=== PATIENT | male | born 1935 | race Caucasian/White ===

== ENCOUNTER 2016-11-30 09:38 | Inpatient (IN) | payer OTHER, BC ==
--- NOTE | 2016-11-30 10:02 | PDOC ---
History of Present Illness - General Chief Complaint: Lightheaded Stated Complaint: DIZZINESS & DIARRHEA Time Seen by Provider: 11/30/16 09:44 History Source: Patient Exam Limitations: No Limitations - History of Present Illness Initial Comments: 11/30/16 10:04 The patient is an 81-year-old male with a significant past medical history of hypertension and benign prostatic hyperplasia, who presents to the emergency department complaining of "dizziness." He was seen in the emergency department for the same complaint several days ago. He reported to the emergency physician that his symptoms only occurred when standing, and were transient. His emergency department workup included a significant drop in systolic blood pressure when changing position from lying to standing. He had a normal CBC, normal chemistries, normal troponin. He was given IV fluids, and discharged with a diagnosis of orthostatic hypotension. Of note, he reported to the emergency provider that he had had similar symptoms several times in the past. He saw his PCP earlier this week and his Valsartan/HCTZ dose was reduced from 160mg daily to 80mg daily. He denies chest pain, back pain, neck pain, jaw pain, teeth pain. He denies nausea, vomiting, diaphoresis. He denies dyspnea. He denies palpitations. He denies focal weakness or paresthesias. He denies difficulty speaking swallowing , vision changes. He has fallen 4 times in the past day and lives alone. 11/30/16 10:22 11/30/16 10:49 Past History - Past Medical History Allergies/Adverse Reactions: Allergies Allergy/AdvReac Type Severity Reaction Status Date / Time No Known Allergies Allergy Verified 11/30/16 11:03 Home Medications: Ambulatory Orders Cholecalciferol (Vitamin D3) [Vitamin D3] 2,000 unit PO DAILY capsule 06/28/13 Valsartan/Hydrochlorothiazide [Valsartan-Hctz 80-12.5 Mg Tab] 1 each PO DAILY tablet 11/18/16 Aspirin [Aspirin EC] 325 mg PO HS 11/30/16 Propranolol HCl [Propranolol HCl ER] 160 mg PO HS 11/30/16 Tamsulosin HCl [Flomax] 0.8 mg PO HS 11/30/16 HTN: Yes - Surgical History Abdominal Surgery: Yes (HERNIA) Appendectomy: Yes - Immunization History Td Vaccination: Yes - Psycho/Social/Smoking Cessation Hx Suicidal Ideation: No Smoking History: Never smoked Have you smoked in the past 12 months: No Number of Cigarettes Smoked Daily: 0 Hx Alcohol Use: No Drug/Substance Use Hx: No Substance Use Type: None Review of Systems - Review of Systems Comments:: 11/30/16 10:02 CONSTITUTIONAL: Absent: fever, chills, diaphoresis, generalized weakness, malaise, loss of appetite HEENT: Absent: rhinorrhea, nasal congestion, throat pain, throat swelling, difficulty swallowing, mouth swelling, ear pain, eye pain, visual Changes CARDIOVASCULAR: Present: See history of present illness Absent: chest pain, loss of consciousness, palpitations, irregular heart rate, peripheral edema RESPIRATORY: Absent: cough, shortness of breath, dyspnea with exertion, orthopnea, wheezing, stridor, hemoptysis GASTROINTESTINAL: Absent: abdominal pain, abdominal distension, nausea, vomiting, diarrhea, constipation, melena, hematochezia GENITOURINARY: Absent: dysuria, frequency, urgency, hesitancy, hematuria, flank pain, genital pain MUSCULOSKELETAL: Absent: myalgia, arthralgia, joint swelling SKIN: Absent: rash, itching, pallor HEMATOLOGIC/IMMUNOLOGIC: Absent: easy bleeding, easy bruising, lymphadenopathy, frequent infections ENDOCRINE: Absent: unexplained weight gain, unexplained weight loss, heat intolerance, cold intolerance NEUROLOGIC: Absent: headache, focal weakness or paresthesias, unsteady gait, seizure, mental status changes, bladder or bowel incontinence PSYCHIATRIC: Absent: anxiety, depression, suicidal or homicidal ideation, hallucinations. *Physical Exam - Vital Signs Last Vital Signs Temp Pulse Resp BP Pulse Ox 98.5 F 80 16 123/85 98 11/30/16 09:40 11/30/16 09:40 11/30/16 09:40 11/30/16 09:40 11/30/16 09:40 - Physical Exam Comments: 11/30/16 10:02 GENERAL: Well developed, well nourished. Awake and alert. No acute distress. HEENT: Normocephalic, atraumatic. PERRLA, EOMI. No conjunctival pallor. Sclera are non- icteric. Moist mucous membranes. Oropharynx is clear. NECK: Supple. Full ROM. No JVD. Carotid pulses 2+ and symmetric, without bruits. No thyromegaly. No lymphadenopathy. CARDIOVASCULAR: Regular rate and rhythm. No murmurs, rubs, or gallops. Distal pulses are 2+ and symmetric. PULMONARY: No evidence of respiratory distress. Lungs clear to auscultation bilaterally. No wheezing, rales or rhonchi. ABDOMINAL: Soft. Non-tender. Non-distended. No rebound or guarding. No organomegaly. Normoactive bowel sounds. MUSCULOSKELETAL Normal range of motion at all joints. No bony deformities or tenderness. No CVA tenderness. EXTREMITIES: No cyanosis. No clubbing. No edema. No calf tenderness. SKIN: Warm and dry. Normal capillary refill. No rashes. No jaundice. NEURO: Alert, awake, appropriate. Cranial nerves 2-12 intact. No deficits to light touch and temperature in face, upper extremities and lower extremities. No motor deficits in the in face, upper extremities and lower extremities. No pronator drift. Normoreflexic in the upper and lower extremities. Normal speech. Toes are down-going bilaterally. Gait is normal without ataxia. No dysmetria. No dysdiadochokinesis. No skew deviation. No abnormal nystagmus. Rhomberg is +/-. Head thrust test is +/-. Dixs-Hallpike test is +/-. PSYCHIATRIC: Cooperative. Good eye contact. Appropriate mood and affect. ED Treatment Course - LABORATORY CBC & Chemistry Diagram: 11/30/16 10:20 11/30/16 10:20 Medical Decision Making - Medical Decision Making 11/30/16 10:30 The patient is well-appearing and in no acute distress He appears euvolemic When he stood up, his blood pressure dropped to 49 systolic, and he became extremely symptomatic When we laid him down, 2 minutes later his blood pressure was 80 systolic Will obtain labs, EKG, chest x-ray Will administer IV fluids Calling PCP 11/30/16 10:[address] De La Vega who agrees with admission 11/30/16 10:47 EKG noted: Atrial flutter with a variable block and a ventricular rate of approximately 84, left axis deviation, left anterior hemiblock, right bundle- branch block, no ST changes 11/30/16 11:15 Labs noted Laboratory Tests 04/19/16 11/16/16 11/30/16 11:30 11:31 10:20 Sodium 137 134 L Potassium 3.5 3.3 L Creatinine 1.2 1.4 H 2.0 H D Will defer decision to anticoagulate to inpatient team as he is a clear fall risk at the moment, but may change if his orthostatic hypotension can be resolved Will place on observation Case discussed in detail with admitting provider including history, physical exam and ancillary studies. Admitting physician has assumed care for the patient, will follow all pending diagnostics and will complete the evaluation and treatment. 11/30/16 11:30 Elevated troponin noted consistent with NSTEMI He denies all chest pain and gutierres snot appear to have had any anginal equivalents Will transfer to [facility] ICU Will administer ASA Will not anticoagulate at this point Clinical impression: NSTEMI New onset atrial flutter Orthostatic hypotension Acute kidney injury Hyponatremia Hypokalemia Frequent falls 11/30/16 11:37 *DC/Admit/Observation/Transfer Diagnosis at time of Disposition: Atrial fibrillation, Orthostatic hypotension, NSTEMI (non-ST elevated myocardial infarction) - Discharge Dispostion Condition at time of disposition: Good Admit: Yes - Referrals Referrals: Yariel Lew MD [Primary Care Provider] -
[2016-11-30 10:44] LABS: BASOPHIL 0.4 % (0-2.0); EOSINOPHIL 0.6 % (0-4.5); MCH 29.4 pg (25.7-33.7); MCHC 32.8 g/dl (32.0-35.9); MEAN CELL VOLUME 89.8 fl (80-96); MEAN PLT VOLUME 9.1 fl (7.5-11.1); NEUTROPHILS 56.8 % (42.8-82.8); PLATELET COUNT 149 K/MM3 (134-434); WHITE BLOOD COUNT 4.9 K/mm3 (4.0-10.0)
[2016-11-30] MEDS ORDERED: SODIUM CHLORIDE 1,000 ML IV SCH (10:45)
[2016-11-30 11:02] LABS: ALBUMIN 3.7 g/dl (3.5-5.0); BILIRUBIN,TOTAL 0.7 mg/dl (0.2-1.0); CALCIUM 8.9 mg/dl (8.4-10.2); TOT PROT 6.7 g/dl (6.4-8.3)
[2016-11-30] MEDS ORDERED: POTASSIUM CHLORIDE TABS 20 MEQ TABLET.ER (FP) PO ONE ×2 (11:15→11:19)
[2016-11-30 11:23] LABS: TROPONIN I (DFP) 0.94 ng/ml (0.03-0.50)
[2016-11-30 11:26] LABS: CK MB 5.8 ng/ml (0.3-4.0)
--- NOTE | 2016-11-30 11:28 | HP ---
CHIEF COMPLAINT: Dizziness PCP: Dr. Lew HISTORY OF PRESENT ILLNESS: This is a 71 year old male with history of HTN, BPH , ?TIA (pt states seen in ED a few years ago and thinks he may have had a "mini- stroke" at that time) who presented to the [facility] ED today complaining of dizziness, a fall yesterday (friend at bedside reports no head trauma or LOC), and a fall earlier this week. He notes that he has been increasingly dizzy over the last few months and that this is causing his frequent falls. He describes the dizziness as the "room spinning" rather than lightheadedness. He was seen with similar symptoms on 11/16 and noted to be orthostatic at that time; Valsartan/HCTZ dose was decreased by half, but he reports no improvement of symptoms. He also notes that he is recovering from "flu" (cough/cold symptoms). V/s on my evaluation: HR 82, BP 90/54, RR 20, SpO2 98% on RA. ER course was notable for: (1) Atrial fibrillation/flutter with ventricular rate 84, left axis deviation, RBBB previously noted on prior EKG of 11/16 (2) Positive troponin 0.94 (3) AMI - 2.0 today; 1.4 on 11/16; 1.0-1.2 in 2016 (4) Hypotension - SBP in 70s on multiple measurements, 40s with standing (5) Temperature 100.6 orally Recent Travel: No PAST MEDICAL HISTORY: As above PAST SURGICAL HISTORY: Appendectomy, hernia repair, retinal detachment repair, cataracts Social History: Lives alone, independent with ADLs. 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 Smoking: Quit 40 years ago Alcohol: None Family History: No family history of CAD, CHF, or atrial fibrillation Allergies No Known Allergies Allergy (Verified 11/30/16 11:03) HOME MEDICATIONS: Home Medications Medication Instructions Recorded Cholecalciferol (Vitamin D3) 2,000 unit PO DAILY capsule 06/28/13 [Vitamin D3] Valsartan/Hydrochlorothiazide 1 each PO DAILY tablet 11/18/16 [Valsartan-Hctz 80-12.5 Mg Tab] Aspirin [Aspirin EC] 325 mg PO HS 11/30/16 Propranolol HCl [Propranolol HCl 160 mg PO HS 11/30/16 ER] Tamsulosin HCl [Flomax] 0.8 mg PO HS 11/30/16 REVIEW OF SYSTEMS CONSTITUTIONAL: Absent: fever, chills, diaphoresis, generalized weakness, malaise, loss of appetite, weight change HEENT: rhinorrhea, nasal congestion Absent: throat pain, throat swelling, difficulty swallowing, mouth swelling, ear pain, eye pain, visual changes CARDIOVASCULAR: lightheadedness, frequent falls because of dizziness Absent: chest pain, syncope, palpitations, irregular heart rate, peripheral edema RESPIRATORY: cough, BELL (70 foot exercise tolerance for the past year) Absent: shortness of breath, dyspnea with exertion, orthopnea, wheezing, stridor , hemoptysis GASTROINTESTINAL: Absent: abdominal pain, abdominal distension, nausea, vomiting, diarrhea, constipation, melena, hematochezia GENITOURINARY: Absent: dysuria, frequency, urgency, hesitancy, hematuria, flank pain, genital pain MUSCULOSKELETAL: Absent: myalgia, arthralgia, joint swelling, back pain, neck pain SKIN: Absent: rash, itching, pallor HEMATOLOGIC/IMMUNOLOGIC: Absent: easy bleeding, easy bruising, lymphadenopathy, frequent infections ENDOCRINE: Absent: unexplained weight gain, unexplained weight loss, heat intolerance, cold intolerance NEUROLOGIC: Absent: headache, focal weakness or paresthesias, dizziness, unsteady gait, seizure, mental status changes, bladder or bowel incontinence PSYCHIATRIC: Absent: anxiety, depression, suicidal or homicidal ideation, hallucinations. PHYSICAL EXAMINATION Vital Signs - 24 hr 11/30/16 11/30/16 11/30/16 09:40 09:56 10:15 Temperature 98.5 F 98.5 F Pulse Rate 80 80 Pulse Rate [ Apical] Pulse Rate [ 86 Sitting] Pulse Rate [ 83 Standing] Pulse Rate [ 82 Supine] Respiratory 16 16 Rate Blood Pressure 123/85 123/85 Blood Pressure [Right Arm] Blood Pressure 74/56 [Sitting] Blood Pressure 49/41 [Standing] Blood Pressure 79/59 [Supine] O2 Sat by Pulse 98 98 Oximetry (%) 11/30/16 11/30/16 11/30/16 10:16 10:40 10:48 Temperature Pulse Rate Pulse Rate [ 87 94 H Apical] Pulse Rate [ Sitting] Pulse Rate [ Standing] Pulse Rate [ Supine] Respiratory 21 18 Rate Blood Pressure 98/63 Blood Pressure 76/45 98/63 [Right Arm] Blood Pressure [Sitting] Blood Pressure [Standing] Blood Pressure [Supine] O2 Sat by Pulse 97 97 Oximetry (%) 11/30/16 11:15 Temperature Pulse Rate Pulse Rate [ 78 Apical] Pulse Rate [ Sitting] Pulse Rate [ Standing] Pulse Rate [ Supine] Respiratory 22 Rate Blood Pressure Blood Pressure 74/50 [Right Arm] Blood Pressure [Sitting] Blood Pressure [Standing] Blood Pressure [Supine] O2 Sat by Pulse 96 Oximetry (%) GENERAL: Awake, alert, and fully oriented, in no acute distress. HEAD: Normal with no signs of trauma. EYES: Pupils equal, round and reactive to light, extraocular movements intact, sclera anicteric, conjunctiva clear. No lid lag. EARS, NOSE, THROAT: Ears normal, nares patent, oropharynx clear without exudates. Moist mucous membranes. NECK: Normal range of motion, supple without lymphadenopathy, JVD, or masses. LUNGS: Breath sounds equal, clear to auscultation bilaterally. No wheezes, and no crackles. No accessory muscle use. HEART: Irregular rhythm, normal S1 and S2 without murmur, rub or gallop. ABDOMEN: Soft, nontender, not distended, normoactive bowel sounds, no guarding, no rebound, no masses. No hepatomegaly or splenomegaly. MUSCULOSKELETAL: Normal range of motion at all joints. No bony deformities or tenderness. No CVA tenderness. UPPER EXTREMITIES: 2+ pulses, warm, well-perfused. No cyanosis. No clubbing. No peripheral edema. LOWER EXTREMITIES: 2+ pulses, warm, well-perfused. No calf tenderness. No peripheral edema. NEUROLOGICAL: Cranial nerves II-XII intact. Normal speech. Normal gait. PSYCHIATRIC: Cooperative. Good eye contact. Appropriate mood and affect. SKIN: Warm, dry, normal turgor, no rashes or lesions noted, normal capillary refill. Laboratory Results - last 24 hr 11/30/16 11/30/16 11/30/16 10:20 10:20 10:20 WBC 4.9 RBC 4.64 Hgb 13.7 Hct 41.7 MCV 89.8 MCHC 32.8 RDW 13.0 Plt Count 149 MPV 9.1 Neutrophils % 56.8 Lymphocytes % 24.2 Monocytes % 18.0 H D Eosinophils % 0.6 Basophils % 0.4 Sodium 134 L Potassium 3.3 L Chloride 100 Carbon Dioxide 24 Anion Gap 10 BUN 52 H D Creatinine 2.0 H D Creat Clearance w eGFR 32.07 Random Glucose 105 Calcium 8.9 Total Bilirubin 0.7 D AST 45 H D ALT 23 D Alkaline Phosphatase 50 Creatine Kinase 439 H D CK-MB (CK-2) 5.8 H CK-MB (CK-2) Rel Index 1.3 Troponin I 0.94 H* D Total Protein 6.7 Albumin 3.7 11/30/16 10:20 WBC RBC Hgb Hct MCV MCHC RDW Plt Count MPV Neutrophils % Lymphocytes % Monocytes % Eosinophils % Basophils % Sodium Potassium Chloride Carbon Dioxide Anion Gap BUN Creatinine Creat Clearance w eGFR Random Glucose Calcium Total Bilirubin AST ALT Alkaline Phosphatase Creatine Kinase CK-MB (CK-2) Cancelled CK-MB (CK-2) Rel Index Troponin I Total Protein Albumin ASSESSMENT/PLAN: 81 yo M with c/o dizziness and subsequent falls x 2. Admitted with new-onset atrial fibrillation and hypotension. Plan: 1. New onset atrial fibrillation/flutter - May have had long-standing paroxysmal atrial fib given report of possible TIA - With fever and recent URI symptoms, need to consider sepsis as possible inciting event - [id number] score 2, even without possible TIA - Need to consider A/C, however pt may not be candidate secondary to frequent falls - Continuous cardiac monitoring - Serial troponins to DION - Check TSH - Obtain echocardiogram - Discussed with Dr. Alfaro 2. Positive troponin - No chest pain or SOB - Cycle cardiac enzymes as above 3. AMI - BUN/Cr ratio suggestive of prerenal process - Continue IV hydration - Avoid nephrotoxic meds as able - Follow 4. Hypotension - Hold antihypertensives - Hold Flomax - IV hydration as above - Monitor in ICU setting 5. Fever - Obtain rectal temp - Follow up CXR - Obtain BC x 2 and lactic acid - Send flu swab - Tylenol 650mgmg PO PRN 6. BPH - Resume Flomax when normotensive 7. Hypokalemia - Repleted with 40 mEq in ED - Follow 8. F/E/N - NS 125/hr - Replete K+ - Low cholesterol/cardiac diet 9. PPX - Heparin 5,000 units sq bid - Ambulation with assistance Dispo: Admit to ICU FULL CODE Visit type - Emergency Visit Emergency Visit: Yes ED Registration Date: 11/30/16 Care time: The patient presented to the Emergency Department on the above date and was hospitalized for further evaluation of their emergent condition. - New Patient This patient is new to me today: Yes Date on this admission: 12/01/16 - Critical Care Critical Care patient: Yes Total Critical Care Time (in minutes): 35 Critical Care Statement: The care of this patient involved high complexity decision making to prevent further life threatening deterioration of the patient 's condition and/or to evalute & treat vital organ system(s) failure or risk of failure.
[2016-11-30] MEDS ORDERED: ASPIRIN 325 MG TABLET PO ONE (11:31)
[2016-11-30] MEDS ORDERED: ASPIRIN 325 MG TABLET ONE (11:33)
[2016-11-30 12:02] LABS: ACTIVATED PTT 22.4 SECONDS (24.0-38.9)
[2016-11-30] MEDS ORDERED: ONDANSETRON 4 MG/2 ML VIAL IVPB PRN (12:02)
[2016-11-30] MEDS ORDERED: ACETAMINOPHEN 325 MG TABLET (FP) PO PRN (12:02)
[2016-11-30 12:06] LABS: INR 1.01 (0.82-1.09); PROTHROMBIN TIME (PATIENT) 11.3 SEC (10.2-13.0)
[2016-11-30 13:00] LABS: URINE BILIRUBIN 1+ (NEGATIVE); URINE BLOOD Trace-lysed (NEGATIVE); URINE GLUCOSE (UA) Negative (NEGATIVE); URINE KETONE Trace (NEGATIVE); URINE LEUK ESTERASE Negative (NEGATIVE); URINE NITRITE Negative (NEGATIVE); URINE UROBILINOGEN 1.0 E.U/dl (0.2-1.0)
[2016-11-30 13:01] LABS: URINE APPEARANCE SL CLOUDY; URINE COLOR AMBER; URINE PROTEIN 1+ (NEGATIVE)
[2016-11-30 13:17] LABS: URINE MUCUS MODERATE; URINE RBC 0-1 /hpf (0-3)
--- NOTE | 2016-11-30 14:34 | CONSULT ---
Consult Consult Specialty:: PULM/CCM Reason for Consultation:: atrial flutter, hypotension, NSTEMI - History of Present Illness Chief Complaint: dizziness History of Present Illness: Mr Mccoy is a 81-year-old male with a significant past medical history of hypertension and benign prostatic hyperplasia, who presents to the emergency department complaining of "dizziness." He was seen in the emergency department for the same complaint several days ago and was discharged home after receiving fluid. Dx was orthostatic hypotension, no amita agonist was prescribed however, but antihypertensive were reduced by PMD. He now returns to the ED reporting that his symptoms have reoccurred despite above measures and are now more frequent. He denies chest pain, back pain, neck pain, jaw pain, teeth pain. He denies N/V/D. He denies dyspnea, orthopnea. . He denies palpitations or full LOC /syncope. He denies focal weakness or paresthesias. He denies difficulty speaking swallowing, vision changes. No fever, sick contacts, or recent travle. He has fallen 4 times in the past day but without striking head or syncope Lives alone, independent of adls. In ED pt was hypotensive to 70s upon sitting up, fluid was given. HR was at baseline. Labs notable for Trop 0.9, Cr up from 2 (last 1.4). Had low grade temp 100. Transferred to [facility] ICU for monitoring. 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 Home Medications - Allergies Allergies/Adverse Reactions: Allergies Allergy/AdvReac Type Severity Reaction Status Date / Time No Known Allergies Allergy Verified 11/30/16 11:03 - Home Medications Home Medications: Ambulatory Orders Cholecalciferol (Vitamin D3) [Vitamin D3] 2,000 unit PO DAILY capsule 06/28/13 Valsartan/Hydrochlorothiazide [Valsartan-Hctz 80-12.5 Mg Tab] 1 each PO DAILY tablet 11/18/16 Aspirin [Aspirin EC] 325 mg PO HS 11/30/16 Propranolol HCl [Propranolol HCl ER] 160 mg PO HS 11/30/16 Tamsulosin HCl [Flomax] 0.8 mg PO HS 11/30/16 Family Disease History - Family Disease History Family History: Unremarkable (Non contrib) Review of Systems - Review of Systems Constitutional: reports: No Symptoms Eyes: reports: No Symptoms HENT: reports: No Symptoms Neck: reports: No Symptoms Cardiovascular: reports: No Symptoms Respiratory: reports: No Symptoms Gastrointestinal: reports: No Symptoms Genitourinary: reports: No Symptoms Breasts: reports: No Symptoms Reported Musculoskeletal: reports: No Symptoms Integumentary: reports: No Symptoms Neurological: reports: Dizziness Endocrine: reports: No Symptoms Hematology/Lymphatic: reports: No Symptoms, Other Psychiatric: reports: No Symptoms Physical Exam Vital Signs: Vital Signs Temperature 100.6 F H 11/30/16 12:56 Pulse Rate 85 11/30/16 12:56 Respiratory Rate 21 11/30/16 12:56 Blood Pressure 82/57 11/30/16 12:56 O2 Sat by Pulse Oximetry (%) 95 11/30/16 11:38 Constitutional: Yes: Well Nourished, No Distress, Calm Eyes: Yes: Conjunctiva Clear, PERRL HENT: Yes: Atraumatic, Normocephalic Neck: Yes: Supple, Trachea Midline. No: Thyromegaly Cardiovascular: Yes: Pulse Irregular, S1, S2 Respiratory: Yes: CTA Bilaterally. No: Accessory Muscle Use Gastrointestinal: Yes: Normal Bowel Sounds, Soft Imaging - Results Chest X-ray: Image Reviewed (clear, normal heart silhoette, no pneumo) EKG: Image Reviewed ( Atrial fibrillation/flutter with ventricular rate 84, LAD , RBBB unchanged from EKG of 11/16) Problem List - Problems (1) Atrial fibrillation Code(s): I48.91 - UNSPECIFIED ATRIAL FIBRILLATION (2) NSTEMI (non-ST elevated myocardial infarction) Code(s): I21.4 - NON-ST ELEVATION (NSTEMI) MYOCARDIAL INFARCTION (3) Orthostatic hypotension Code(s): I95.1 - ORTHOSTATIC HYPOTENSION Assessment/Plan A/ P: 81 yo man on multiple antihyptensives and amita paolo for BPH p/w a flutter and orthostatic hypotesion P/ -? if flutter is paroxysmal , rate is controlled without intervention - would not anticoagulate given hx of multiple falls (high risk) - given AMI, clear cxr and no oxygen requirement would give volume and follow Cr - serial troponin, suspect demand during hypotension, EKG unchanged, check TTE and t-BNP - Dr Alfaro following - hold all anti-HTN, resume slowly if at all - Resume Flomax when normotensive - Heparin 5,000 units SUBQ BID, no indication for GI prophy - OOB with assitance Dispo: can monitor in ICU tonight, tele tomorrow FULL CODE
[2016-11-30 15:06] VITALS: BMI 27.1
[2016-11-30 16:50] LABS: TROPONIN I 0.78 ng/ml (0.00-0.05)
[2016-11-30] MEDS ORDERED: HEPARIN NA (PORCINE) 5,000 UNITS/ML 1ML VIAL IVPUSH PRN ×2 (17:41)
--- NOTE | 2016-11-30 17:42 | CON.CARD ---
Consult Consult Specialty:: Cardiology Referred by:: Hospitalist Reason for Consultation:: Cardiac evaluation - History of Present Illness History of Present Illness: Patient is a 71 year old male well known to our service (sees Dr. Vidhi Vargas) with underlying history of hypertension, possible cerebrovascular disease/TIA who presents to [facility] ED with dizziness. He has been falling without syncope and no LOC or any trauma. He had described as room spinning. Patient was found to be orthostatic, but also was found to be in atrial fibrillation and had elevation of troponin level. Patient was also found with elevated creatinine level. He was transferred to [facility] ICU for further monitoring and management. Currently, he is awale and alert. Monitor reveals sinus rhythm now. He denies chest pain, shortness of breath or palpitations. Denies paroxysmal nocturnal dyspnea or orthopnea. Denies fever or chills. Denies headache. Patient also had low grade fever. Cardiology consultation was called for further evaluation. - History Source History Provided By: Patient, Medical Record Limitations to Obtaining History: No Limitations - Past Medical History Cardio/Vascular: Yes: HTN Renal/: Yes: BPH - Past Surgical History Past Surgical History: Yes: Appendectomy, Hernia Repair Additional Surgical History: Cataract surgery, Retinal detachment, Cataract surgery - Alcohol/Substance Use Hx Alcohol Use: No History of Substance Use: reports: None - Smoking History Smoking history: Former smoker Have you smoked in the past 12 months: No Aproximately how many cigarettes per day: 0 If you are a former smoker, when did you quit?: 6O YEARS - Social History Usual Living Arrangement: Alone ADL: Independent 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 Home Medications - Allergies Allergies/Adverse Reactions: Allergies Allergy/AdvReac Type Severity Reaction Status Date / Time No Known Allergies Allergy Verified 11/30/16 11:03 - Home Medications Home Medications: Ambulatory Orders Cholecalciferol (Vitamin D3) [Vitamin D3] 2,000 unit PO DAILY capsule 06/28/13 Valsartan/Hydrochlorothiazide [Valsartan-Hctz 80-12.5 Mg Tab] 1 each PO DAILY tablet 11/18/16 Aspirin [Aspirin EC] 325 mg PO HS 11/30/16 Propranolol HCl [Propranolol HCl ER] 160 mg PO HS 11/30/16 Tamsulosin HCl [Flomax] 0.8 mg PO HS 11/30/16 Review of Systems - Review of Systems Cardiovascular: denies: Chest Pain, Palpitations, Shortness of Breath Respiratory: denies: Cough, Hemoptysis, Orthopnea, PND, SOB, SOB on Exertion Gastrointestinal: denies: Abdominal Pain, Constipation, Diarrhea, Melena, Nausea , Rectal Bleeding, Vomiting Musculoskeletal: denies: Joint Pain Neurological: reports: Dizziness. denies: Confusion, Headache, Seizure, Syncope Vital Signs: Vital Signs Temperature 98.1 F 11/30/16 16:00 Pulse Rate 58 L 11/30/16 16:00 Respiratory Rate 20 11/30/16 16:00 Blood Pressure 102/55 11/30/16 16:00 O2 Sat by Pulse Oximetry (%) 97 11/30/16 14:02 Neck: Yes: Supple Respiratory: Yes: CTA Bilaterally Gastrointestinal: Yes: Normal Bowel Sounds, Soft. No: Tenderness Cardiovascular: Yes: Regular Rate and Rhythm JVD: No Carotid Bruit: No PMI: Non-Displaced Heart Sounds: Yes: S1, S2 Edema: No - Other Data Labs, Other Data: INR, PTT INR 1.01 (0.82-1.09) 11/30/16 11:30 Troponin, BNP 11/30/16 15:50 Troponin I 0.78 H* Laboratory Results - last 24 hr 11/30/16 11/30/16 11/30/16 15:50 22:20 22:20 WBC RBC Hgb Hct MCV MCHC RDW Plt Count MPV Neutrophils % Lymphocytes % Monocytes % Eosinophils % Basophils % PTT (Actin FS) 81.2 H Sodium Potassium Chloride Carbon Dioxide Anion Gap BUN Creatinine Creat Clearance w eGFR Random Glucose Lactic Acid Calcium Magnesium Total Bilirubin AST ALT Alkaline Phosphatase Creatine Kinase 331 H 260 D Creatine Kinase Index 1.2 CK-MB (CK-2) 3.852 H Troponin I 0.78 H* 0.62 H* B-Natriuretic Peptide 1939.17 H Total Protein Albumin Triglycerides Cholesterol Total LDL Cholesterol HDL Cholesterol TSH Laboratory Tests 11/30/16 11/30/16 11/30/16 10:20 10:20 10:20 WBC 4.9 RBC 4.64 Hgb 13.7 Hct 41.7 MCV 89.8 MCHC 32.8 RDW 13.0 Plt Count 149 MPV 9.1 Neutrophils % 56.8 Lymphocytes % 24.2 Monocytes % 18.0 H D Eosinophils % 0.6 Basophils % 0.4 INR PTT (Actin FS) Sodium 134 L Potassium 3.3 L Chloride 100 Carbon Dioxide 24 Anion Gap 10 BUN 52 H D Creatinine 2.0 H D Creat Clearance w eGFR 32.07 Random Glucose 105 Lactic Acid Calcium 8.9 Magnesium Total Bilirubin 0.7 D AST 45 H D ALT 23 D Alkaline Phosphatase 50 Creatine Kinase 439 H D Creatine Kinase Index CK-MB (CK-2) 5.8 H CK-MB (CK-2) Rel Index 1.3 Troponin I 0.94 H* D B-Natriuretic Peptide Total Protein 6.7 Albumin 3.7 Triglycerides Cholesterol Total LDL Cholesterol HDL Cholesterol TSH Urine Color Urine Appearance Urine pH Ur Specific [place] Urine Protein Urine Glucose (UA) Urine Ketones Urine Blood Urine Nitrite Urine Bilirubin Urine Urobilinogen Ur Leukocyte Esterase Urine RBC Urine WBC Ur Epithelial Cells Hyaline Casts Urine Mucus 11/30/16 11/30/16 11/30/16 10:20 11:30 12:45 WBC RBC Hgb Hct MCV MCHC RDW Plt Count MPV Neutrophils % Lymphocytes % Monocytes % Eosinophils % Basophils % INR 1.01 PTT (Actin FS) 22.4 L Sodium Potassium Chloride Carbon Dioxide Anion Gap BUN Creatinine Creat Clearance w eGFR Random Glucose Lactic Acid Calcium Magnesium Total Bilirubin AST ALT Alkaline Phosphatase Creatine Kinase Creatine Kinase Index CK-MB (CK-2) Cancelled CK-MB (CK-2) Rel Index Troponin I B-Natriuretic Peptide Total Protein Albumin Triglycerides Cholesterol Total LDL Cholesterol HDL Cholesterol TSH Urine Color Poppy Urine Appearance Sl cloudy Urine pH 5.0 D Ur Specific [place] 1.025 Urine Protein 1+ H Urine Glucose (UA) Negative Urine Ketones Trace Urine Blood Trace-lysed Urine Nitrite Negative Urine Bilirubin 1+ H Urine Urobilinogen 1.0 e.u/dl Ur Leukocyte Esterase Negative Urine RBC 0-1 Urine WBC 1-3 Ur Epithelial Cells Rare Hyaline Casts 10-15 Urine Mucus Moderate Atrial fibrillation, RBBB Echo: Pending Imaging - Results Chest X-ray: Report Reviewed (Unremarkable) EKG: Report Reviewed Problem List - Problems (1) Atrial fibrillation Code(s): I48.91 - UNSPECIFIED ATRIAL FIBRILLATION Qualifiers: Atrial fibrillation type: paroxysmal Qualified Code(s): I48.0 - Paroxysmal atrial fibrillation (2) NSTEMI (non-ST elevated myocardial infarction) Code(s): I21.4 - NON-ST ELEVATION (NSTEMI) MYOCARDIAL INFARCTION (3) Orthostatic hypotension Code(s): I95.1 - ORTHOSTATIC HYPOTENSION (4) Demand ischemia Code(s): I24.8 - OTHER FORMS OF ACUTE ISCHEMIC HEART DISEASE (5) HTN (hypertension) Code(s): I10 - ESSENTIAL (PRIMARY) HYPERTENSION Qualifiers: Hypertension type: essential hypertension Qualified Code(s): I10 - Essential (primary) hypertension Assessment/Plan 1. Paroxymal atrial fibrillation now in sinus rhythm ([id number] score of 5 or 6) 2. Hypertension 3. History of orthostatic hypotension and dizziness 4. Cerebrovascular disease/TIA 5. Elevated troponin suggests CAD - demand ischemic injury PLAN: 1. 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 NOAC (possibly lower dose such as Eliquis 2.5 mg BID in view of age>80, cr of 1.5) 2. Continue Valsartan without HCT as tolerated 3. Add low dose beta paolo as tolerated 4. Transthoracic echocardiography to assess LV and valvular function 5. Serial cardiac enzymes 6. Monitor orthostasis Further plans are to follow Pedrito Alfaro MD
[2016-11-30] MEDS ORDERED: HEPARIN INFUSION - 500 ML IVPB SCH (17:45)
[2016-11-30] MEDS ORDERED: HEPARIN NA (PORCINE) 5,000 UNITS/ML 1ML VIAL ONE (17:49)
[2016-11-30] MEDS ORDERED: HEPARIN INFUSION - 500 ML IVPB ONE (17:49)
[2016-11-30] MEDS ORDERED: HEPARIN NA (PORCINE) 5,000 UNITS/ML 1ML VIAL SQ SCH (18:00)
[2016-11-30] MEDS ORDERED: PROPRANOLOL HCL 160 MG PO SCH ×2 (22:00)
[2016-11-30] MEDS ORDERED: CHLORHEXIDINE GLUCONATE 4% CLEANSER FOR DECOLONIZATION TP SCH (22:00)
[2016-11-30] MEDS ORDERED: TAMSULOSIN HCL 0.4 MG CAP.ER.24H (FP) PO SCH ×2 (22:00)
[2016-11-30] MEDS: MUPIROCIN 2% TOPICAL OINTMENT FOR DECOLONIZATION NS SCH (22:50)
[2016-11-30] MEDS: HEPARIN NA (PORCINE) 5,000 UNITS/ML 1ML VIAL SQ SCH (23:36)
[2016-12-01] LABS: TROPONIN I 0.62 ng/ml (0.00-0.05)
[2016-12-01 07:03] LABS: MEAN CELL VOLUME 89.2 fl (80-96); WHITE BLOOD COUNT 3.4 K/mm3 (4.0-10.0)
[2016-12-01 07:04] LABS: MCHC 33.6 g/dl (32.0-35.9); MEAN PLT VOLUME 9.1 fl (7.5-11.1); NEUTROPHILS 41.4 % (42.8-82.8); PLATELET COUNT 122 K/MM3 (134-434); RDW 13.7 % (11.9-15.9)
[2016-12-01 07:05] LABS: BASOPHIL 0.2 % (0-2.0); EOSINOPHIL 1.3 % (0-4.5)
[2016-12-01 07:15] LABS: ALBUMIN 2.9 g/dl (3.4-5.0); BILIRUBIN,TOTAL 0.6 mg/dL (0.2-1.0); CALCIUM 7.9 mg/dL (8.5-10.1); CREATININE 1.5 mg/dL (0.7-1.3); MAGNESIUM 2.2 mg/dL (1.8-2.4)
[2016-12-01] MEDS: HEPARIN NA (PORCINE) 5,000 UNITS/ML 1ML VIAL SQ SCH (08:59)
[2016-12-01] MEDS ORDERED: PT OWN MED DRAWER 7, Y5N ONE ×2 (09:06→19:01)
--- NOTE | 2016-12-01 09:37 | PN ---
Progress Note (short form) - Note Progress Note: Seen and examined in the ICU BP stable, mild hypotension overnight while asleep started on heparin drip Denies: CP, PEPPER, SOB, dizziness Current Medications Acetaminophen (Tylenol -) 650 mg PO Q6H PRN PRN Reason: FEVER OR PAIN Aspirin (Ecotrin -) 325 mg PO HS SAUL Chlorhexidine Gluconate (Hibiclens For Decolonization -) 1 applic TP HS SAUL Last Admin: 11/30/16 23:36 Dose: 1 applic Cholecalciferol (Vitamin D3 -) 2,000 unit PO DAILY SAUL Last Admin: 12/01/16 09:14 Dose: 2,000 unit Heparin Sodium (Porcine) (Heparin -) 1,000 unit IVPUSH PRN PRN PRN Reason: Heparin Heparin Sodium (Porcine) (Heparin -) 5,000 unit IVPUSH PRN PRN PRN Reason: Heparin Last Admin: 11/30/16 17:45 Dose: 5,000 unit Heparin Sodium/Dextrose (Heparin Infusion -) 500 mls @ 20 mls/hr IVPB TITR SAUL ; 1,000 UNITS/HR PRN Reason: Protocol Last Titration: 12/01/16 00:38 Dose: 950 units/hr Mupirocin (Bactroban Ointment (For Decolonization) -) 1 applic NS BID SAUL Stop: 12/05/16 21:59 Last Admin: 11/30/16 22:50 Dose: 1 applic Ondansetron HCl (Zofran Injection) 4 mg IVPB Q6H PRN PRN Reason: NAUSEA Vital Signs Period Temp Pulse Resp BP Sys/Saleh Pulse Ox Last 24 Hr 98.0 F-100.6 F 56-94 12-22 49-166/39-85 95-98 Intake & Output 11/28/16 11/29/16 11/30/16 12/01/16 23:59 23:59 23:59 23:59 Intake Total 1375 1979 Output Total 625 380 Balance 750 1599 Weight 85.842 kg 87.231 kg Exam: General: awake, alert and coopeative w/o distress HEENT: PERRL, no JVD noted CV: S1, S2 RRR Pulm: faint end exp wheeze Abd: obese, SNTND, + BS Ext: WWP, no edema Neuro: CN grossly intact CBCD WBC 3.4 K/mm3 (4.0-10.0) L D 12/01/16 05:20 RBC 3.83 M/mm3 (4.00-5.60) L 12/01/16 05:20 Hgb 11.5 GM/dl (11.7-16.9) L D 12/01/16 05:20 Hct 34.2 % (35.4-49) L D 12/01/16 05:20 MCV 89.2 fl (80-96) 12/01/16 05:20 MCHC 33.6 g/dl (32.0-35.9) 12/01/16 05:20 RDW 13.7 % (11.9-15.9) 12/01/16 05:20 Plt Count 122 K/MM3 (134-434) L 12/01/16 05:20 MPV 9.1 fl (7.5-11.1) 12/01/16 05:20 CMP Sodium 144 mmol/L (136-145) 12/01/16 05:20 Potassium 3.7 mmol/L (3.5-5.1) 12/01/16 05:20 Chloride 109 mmol/L (98-107) H 12/01/16 05:20 Carbon Dioxide 26 mmol/L (21-32) 12/01/16 05:20 Anion Gap 9 (8-16) 12/01/16 05:20 BUN 46 mg/dL (7-18) H 12/01/16 05:20 Creatinine 1.5 mg/dL (0.7-1.3) H 12/01/16 05:20 Creat Clearance w eGFR 44.69 (>60) 12/01/16 05:20 Random Glucose 81 mg/dL (74-106) 12/01/16 05:20 Calcium 7.9 mg/dL (8.5-10.1) L 12/01/16 05:20 Total Bilirubin 0.6 mg/dL (0.2-1.0) 12/01/16 05:20 AST 25 U/L (15-37) 12/01/16 05:20 ALT 22 U/L (12-78) 12/01/16 05:20 Alkaline Phosphatase 52 U/L (45-117) 12/01/16 05:20 Total Protein 6.0 g/dl (6.4-8.2) L 12/01/16 05:20 Albumin 2.9 g/dl (3.4-5.0) L 12/01/16 05:20 CARDIAC ENZYMES Creatine Kinase 260 IU/L (39-308) D 11/30/16 22:20 Troponin I 0.62 ng/ml (0.00-0.05) H* 11/30/16 22:20 All Active Problems Atrial fibrillation (Acute) NSTEMI (non-ST elevated myocardial infarction) (Acute) Orthostatic hypotension (Acute) Change in mental status (Acute) Orthostasis (Acute) P/ - rate is controlled without intervention - currently on systemic anticoagulation, consider risk benefit prior to discharge given multiple recent falls - currently on RA, O2 as needed - prn albuterol for exp wheezing - Incentive spirometry - Dr Alfaro following - hold all anti-HTN, resume slowly per cards - Resume Flomax when normotensive - OOB with assitance Dispo: stable for tele floor Boerem ACNP Pulm/CCM CCT: 35m
[2016-12-01] MEDS ORDERED: ALBUTEROL SO4 0.083% IH SOL 2.5 MG/3 ML VIAL.NEB. NEB PRN ×2 (09:42→14:01)
[2016-12-01] MEDS ORDERED: CHOLECALCIFEROL (VITAMIN D3) 1,000 UNIT TABLET (FP) PO SCH (10:00)
[2016-12-01] MEDS: MUPIROCIN 2% TOPICAL OINTMENT FOR DECOLONIZATION NS SCH ×2 (10:15→22:26)
[2016-12-01 11:14] LABS: THYROID STIMULATING HORMONE 0.65 uIU/ml (0.358-3.74)
--- NOTE | 2016-12-01 11:23 | EKG ---
Test Reason : Blood Pressure : / mmHG Vent. Rate : 084 BPM Atrial Rate : 083 BPM P-R Int : 000 ms QRS Dur : 130 ms QT Int : 390 ms P-R-T Axes : 000 -37 026 degrees QTc Int : 460 ms ATRIAL FIBRILLATION LEFT AXIS DEVIATION RIGHT BUNDLE BRANCH BLOCK WHEN COMPARED WITH ECG OF 16-NOV-2016 11:15, ATRIAL FIBRILLATION HAS REPLACED SINUS RHYTHM VENT. RATE HAS INCREASED BY 28 BPM INVERTED T WAVES HAVE REPLACED NONSPECIFIC T WAVE ABNORMALITY IN ANTERIOR LEADS Confirmed by MD RAJI, SILVIA ([id number]) on 12/01/2016 11:22:46 AM Referred By: CAPO YAÑEZ Confirmed By:SILVIA ALEGRIA MD
[2016-12-01] MEDS ORDERED: ONDANSETRON 4 MG/2 ML VIAL IVPB PRN (14:01)
[2016-12-01] MEDS ORDERED: HEPARIN NA (PORCINE) 5,000 UNITS/ML 1ML VIAL IVPUSH PRN ×4 (14:01)
[2016-12-01] MEDS ORDERED: HEPARIN INFUSION - 500 ML IVPB SCH (14:01)
[2016-12-01] MEDS ORDERED: ACETAMINOPHEN 325 MG TABLET (FP) PO PRN (14:01)
--- NOTE | 2016-12-01 15:05 | PN ---
Physical Exam: SUBJECTIVE: Patient seen and examined. Feels well, voices no complaints. Had diarrhea x 5 episodes yesterday, one BM today. States 6 weeks ago both legs swelled and PCP Dr. Perera started a medicine, cannot recall name, but swelling went down. OBJECTIVE: Vital Signs Period Temp Pulse Resp BP Sys/Saleh Pulse Ox Last 24 Hr 97.7 F-99.1 F 56-95 12-22 83-169/39-83 96-97 GENERAL: The patient is awake, alert, and fully oriented, in no acute distress. HEAD: Normal with no signs of trauma. EYES: PERRL, extraocular movements intact, sclera anicteric, conjunctiva clear. No ptosis. LUNGS: Diffuse crackles HEART: Regular rate and rhythm, S1, S2 without murmur, rub or gallop. ABDOMEN: Soft, nontender, nondistended, normoactive bowel sounds, no guarding, no rebound, no hepatosplenomegaly, no masses. EXTREMITIES: 2+ pulses, warm, well-perfused, no edema. NEUROLOGICAL: Cranial nerves II through XII grossly intact. Normal speech, gait not observed. Laboratory Results - last 24 hr 11/30/16 11/30/16 11/30/16 15:50 22:20 22:20 WBC RBC Hgb Hct MCV MCHC RDW Plt Count MPV Neutrophils % Lymphocytes % Monocytes % Eosinophils % Basophils % PTT (Actin FS) 81.2 H Sodium Potassium Chloride Carbon Dioxide Anion Gap BUN Creatinine Creat Clearance w eGFR Random Glucose Lactic Acid Calcium Magnesium Total Bilirubin AST ALT Alkaline Phosphatase Creatine Kinase 331 H 260 D Creatine Kinase Index 1.2 CK-MB (CK-2) 3.852 H Troponin I 0.78 H* 0.62 H* B-Natriuretic Peptide 1939.17 H Total Protein Albumin Triglycerides Cholesterol Total LDL Cholesterol HDL Cholesterol TSH 12/01/16 12/01/16 12/01/16 05:20 05:20 05:20 WBC 3.4 L D RBC 3.83 L Hgb 11.5 L D Hct 34.2 L D MCV 89.2 MCHC 33.6 RDW 13.7 Plt Count 122 L MPV 9.1 Neutrophils % 41.4 L D Lymphocytes % 38.9 D Monocytes % 18.2 H Eosinophils % 1.3 D Basophils % 0.2 PTT (Actin FS) Sodium Cancelled 144 Potassium Cancelled 3.7 Chloride Cancelled 109 H Carbon Dioxide Cancelled 26 Anion Gap Cancelled 9 BUN Cancelled 46 H Creatinine Cancelled 1.5 H Creat Clearance w eGFR Cancelled 44.69 Random Glucose Cancelled 81 Lactic Acid Calcium Cancelled 7.9 L Magnesium Cancelled 2.2 Total Bilirubin Cancelled 0.6 AST Cancelled 25 ALT Cancelled 22 Alkaline Phosphatase Cancelled 52 Creatine Kinase Creatine Kinase Index CK-MB (CK-2) Troponin I B-Natriuretic Peptide Total Protein Cancelled 6.0 L Albumin Cancelled 2.9 L Triglycerides 96 Cholesterol 134 Total LDL Cholesterol 87 HDL Cholesterol 40 TSH 0.65 D Cancelled 12/01/16 12/01/16 12/01/16 06:00 06:52 08:00 WBC RBC Hgb Hct MCV MCHC RDW Plt Count MPV Neutrophils % Lymphocytes % Monocytes % Eosinophils % Basophils % PTT (Actin FS) 68.8 H Sodium Potassium Chloride Carbon Dioxide Anion Gap BUN Creatinine Creat Clearance w eGFR Random Glucose Lactic Acid 0.869 Calcium Magnesium Total Bilirubin AST ALT Alkaline Phosphatase Creatine Kinase Creatine Kinase Index CK-MB (CK-2) Troponin I B-Natriuretic Peptide Total Protein Albumin Triglycerides Cholesterol Total LDL Cholesterol HDL Cholesterol TSH Cancelled Current Medications Generic Name Dose Route Start Last Admin Trade Name Freq PRN Reason Stop Dose Admin Acetaminophen 650 mg 12/01/16 14:01 Tylenol - PO Q6H PRN FEVER OR PAIN Albuterol Sulfate 1 amp 12/01/16 14:01 Ventolin 0.083% Nebulizer Soln - NEB Q6H PRN SHORT OF BREATH/WHEEZING Apixaban 2.5 mg 12/01/16 22:00 Eliquis - PO BID SAUL Chlorhexidine Gluconate 1 applic 12/01/16 22:00 Hibiclens For Decolonization - TP HS SAUL Cholecalciferol 2,000 unit 12/02/16 10:00 Vitamin D3 - PO DAILY SAUL Metoprolol Tartrate 25 mg 12/01/16 22:00 Lopressor - PO BID SAUL Metoprolol Tartrate 12.5 mg 12/01/16 17:00 Lopressor - PO BID SAUL Mupirocin 1 applic 12/01/16 22:00 Bactroban Ointment (For Decolonization) - NS 12/05/16 21:59 BID SAUL Ondansetron HCl 4 mg 12/01/16 14:01 Zofran Injection IVPB Q6H PRN NAUSEA Imaging 11/30 ECG: atrial fibrillation/flutter with ventricular rate 84, left axis deviation, RBBB previously noted on prior EKG of 11/16, T wave inversions V1, V2 , V3; T wave inversions in V2 and V3 not seen on previous ECG 01/04/1611/30 Echo: LV normal; RV normal; mild MR; moderate TR; mild pHTN; mild PI ASSESSMENT/PLAN 81 year-old male with a PMH of HTN, possible cerebrovascular disease/TIA, and BPH. Admitted with new onset afib and NSTEMI. Paroxysmal atrial fibrillation, newly diagnosed --now in sinus rhythm, rate 70 --[id number] score of 5 or 6; was started on heparin drip but platelets dropped; heparin drip d/c'd; start Eliquis Hypertension --BP elevated this afternoon, as high as 183/89, when in sinus rhythm --episodes of hypotension, dizziness likely correlate to episodes of afib --start low dose beta paolo NSTEMI v. demand ischemia --serial troponins 0.94--0.78-->0.62 --ASA, beta paolo, Eliquis AMI --Cr trending down 1.5 (<--2.0); baseline 1.2 --had been given IV fluids, now stopped; crackles on exam; Lasix 20mg IV x 1 --hold home Valsartan/HCTZ Fever --T100.6 on admission, patient has been complaining of cough x 1 week; flu negative but > 48 hours after start of symptoms --no leukocytosis --start empiric levofloxacin; CrCl borderline for renal dosing, start 500mg IV daily BPH --resume Flomax Cerebrovascular disease/TIA --continue full-dose ASA F/E/N Fluids: PO intake adequate Electrolytes: replete as indicated Nutrition: cholesterol/fat controlled/low sodium DVT prophylaxis: Eliquis, oob, ambulation PT evaluation Daily PT Dispo: continues to require ICU level of care. Full Code. Visit type - Emergency Visit Emergency Visit: Yes ED Registration Date: 11/30/16 Care time: The patient presented to the Emergency Department on the above date and was hospitalized for further evaluation of their emergent condition. - New Patient This patient is new to me today: Yes Date on this admission: 12/01/16 - Critical Care Critical Care patient: Yes Total Critical Care Time (in minutes): 50 Critical Care Statement: The care of this patient involved high complexity decision making to prevent further life threatening deterioration of the patient 's condition and/or to evalute & treat vital organ system(s) failure or risk of failure.
--- NOTE | 2016-12-01 16:42 | PN ---
Progress Note, Physician Chief Complaint: Remains in sinus rhythm Not in distress History of Present Illness: Patient was seen and examined. Awake and alert. Chart was reviewed Denies chest pain, SOB or palpitations. Denies dizziness - Current Medication List Current Medications: Active Medications Acetaminophen (Tylenol -) 650 mg PO Q6H PRN PRN Reason: FEVER OR PAIN Albuterol Sulfate (Ventolin 0.083% Nebulizer Soln -) 1 amp NEB Q6H PRN PRN Reason: SHORT OF BREATH/WHEEZING Aspirin (Ecotrin -) 325 mg PO HS SAUL Chlorhexidine Gluconate (Hibiclens For Decolonization -) 1 applic TP HS SAUL Cholecalciferol (Vitamin D3 -) 2,000 unit PO DAILY SAUL Heparin Sodium (Porcine) (Heparin -) 1,000 unit IVPUSH PRN PRN PRN Reason: Heparin Heparin Sodium (Porcine) (Heparin -) 5,000 unit IVPUSH PRN PRN PRN Reason: Heparin Heparin Sodium/Dextrose (Heparin Infusion -) 500 mls @ 20 mls/hr IVPB TITR SAUL ; 1,000 UNITS/HR PRN Reason: Protocol Mupirocin (Bactroban Ointment (For Decolonization) -) 1 applic NS BID SAUL Stop: 12/05/16 21:59 Ondansetron HCl (Zofran Injection) 4 mg IVPB Q6H PRN PRN Reason: NAUSEA - Objective Vital Signs: Vital Signs Temperature 97.7 F 12/01/16 14:08 Pulse Rate 95 H 12/01/16 14:08 Respiratory Rate 19 12/01/16 14:08 Blood Pressure 147/72 12/01/16 14:08 O2 Sat by Pulse Oximetry (%) 100 12/01/16 15:35 Neck: Yes: Supple Cardiovascular: Yes: Regular Rate and Rhythm, S1, S2 Respiratory: Yes: CTA Bilaterally Gastrointestinal: Yes: Normal Bowel Sounds, Soft. No: Tenderness Edema: No Additional Findings/Remarks: - Review of Systems Cardiovascular: denies: Chest Pain, Palpitations, Shortness of Breath Respiratory: denies: Cough, Hemoptysis, Orthopnea, PND, SOB, SOB on Exertion Gastrointestinal: denies: Abdominal Pain, Constipation, Diarrhea, Melena, Nausea , Rectal Bleeding, Vomiting Musculoskeletal: denies: Joint Pain Neurological: reports: Dizziness. denies: Confusion, Headache, Seizure, Syncope Labs: CBC, BMP 12/01/16 05:20 INR, PTT INR 1.01 (0.82-1.09) 11/30/16 11:30 - ....Imaging EKG: Report Reviewed Problem List - Problems (1) Atrial fibrillation Code(s): I48.91 - UNSPECIFIED ATRIAL FIBRILLATION Qualifiers: Qualified Code(s): I48.0 - Paroxysmal atrial fibrillation (2) NSTEMI (non-ST elevated myocardial infarction) Code(s): I21.4 - NON-ST ELEVATION (NSTEMI) MYOCARDIAL INFARCTION (3) Orthostatic hypotension Code(s): I95.1 - ORTHOSTATIC HYPOTENSION (4) Demand ischemia Code(s): I24.8 - OTHER FORMS OF ACUTE ISCHEMIC HEART DISEASE (5) HTN (hypertension) Code(s): I10 - ESSENTIAL (PRIMARY) HYPERTENSION Qualifiers: Qualified Code(s): I10 - Essential (primary) hypertension Assessment/Plan 1. Paroxymal atrial fibrillation now in sinus rhythm ([id number] score of 5 or 6) 2. Hypertension 3. History of orthostatic hypotension and dizziness 4. Cerebrovascular disease/TIA 5. Elevated troponin suggests CAD - demand ischemic injury - trending down PLAN: 1. Discontinue Heparin drip. (platelet level decreased suggests HIT) Ideally will need long term care pharmacist anticoagulation with Coumadin vs. NOAC (possibly lower dose such as Eliquis 2.5 mg BID in view of age>80, cr of 1.5) - prefer Eliquis if tolerated 2. Valsartan without HCT as tolerated 3. Add low dose beta paolo as tolerated 4. Transthoracic echocardiography revealed normal LV systolic function, mild MR , moderate TR and mild TX 5. Serial cardiac enzymes trending down 6. Monitor orthostasis Further plans are to follow Pedrito Alfaro MD
[2016-12-01] MEDS ORDERED: METOPROLOL TARTRATE 25 MG TABLET (FP) PO SCH ×2 (17:00→17:15)
[2016-12-01] MEDS ORDERED: FUROSEMIDE 40 MG/4 ML INJECTABLE VIAL IVPB ONE (17:01)
[2016-12-01] MEDS ORDERED: LEVOFLOXACIN 750 MG IVPB 150 ML IVPB ONE (17:13)
[2016-12-01] MEDS ORDERED: AZITHROMYCIN IVPB 250 ML IVPB SCH (17:15)
[2016-12-01 18:11] LABS: CALCIUM 8.2 mg/dL (8.5-10.1); CREATININE 1.4 mg/dL (0.7-1.3)
[2016-12-01] MEDS ORDERED: LEVOFLOXACIN 500 MG IVPB 100 ML IVPB ONE (18:15)
[2016-12-01] MEDS ORDERED: APIXABAN 2.5 MG TABLET PO ONE (19:30)
[2016-12-01] MEDS: METOPROLOL TARTRATE 25 MG TABLET (FP) PO SCH ×2 (21:06→21:27)
[2016-12-01] MEDS ORDERED: ASPIRIN 325 MG ENTERIC COATED TABLET (FP) PO SCH ×2 (22:00)
[2016-12-01] MEDS ORDERED: FUROSEMIDE 40 MG/4 ML INJECTABLE VIAL IVPUSH ONE (22:18)
[2016-12-01] MEDS ORDERED: FUROSEMIDE 40 MG/4 ML INJECTABLE VIAL ONE (22:19)
[2016-12-01] MEDS: CHLORHEXIDINE GLUCONATE 4% CLEANSER FOR DECOLONIZATION TP SCH (22:26)
[2016-12-01] MEDS ORDERED: QUEtiapine FUMARATE 25 MG TABLET (FP) PO ONE (23:20)
[2016-12-02] MEDS ORDERED: LORAZEPAM CARPU-JECT 2 MG/ML DISP.SYRIN ONE (00:13)
[2016-12-02 05:59] LABS: MCH 29.9 pg (25.7-33.7); MCHC 33.8 g/dl (32.0-35.9); MEAN CELL VOLUME 88.3 fl (80-96); MEAN PLT VOLUME 8.9 fl (7.5-11.1); PLATELET COUNT 134 K/MM3 (134-434); RDW 13.5 % (11.9-15.9); WHITE BLOOD COUNT 4.4 K/mm3 (4.0-10.0)
[2016-12-02] MEDS ORDERED: LORAZEPAM CARPU-JECT 2 MG/ML DISP.SYRIN IVPUSH ONE (06:32)
--- NOTE | 2016-12-02 09:24 | PN ---
Physical Exam: SUBJECTIVE: Patient seen and examined. He denies chest pain, able to answer questions appropriately but very agitated and combative overnight. OBJECTIVE: Patient is combative, agitated Can answer questions, knows who he is, where he is, current president, but then starts to talk to people in room who are not present D/Cd Levaquin as it can cause toxic psychosis Ordered CT scan of head for AMS On wrist restraints for safety as pt is combative Hypokalemia repleted with K 40meq x 1 Vital Signs Period Temp Pulse Resp BP Sys/Saleh Pulse Ox Last 24 Hr 97.2 F-97.9 F 61-80 15-28 89-183/54-97 97-100 GENERAL: The patient is awake, alert, combative, periods of confusion/ hallucination. HEAD: Normal with no signs of trauma, facial symmetry EYES: PERRL, extraocular movements intact, sclera anicteric, conjunctiva clear. No ptosis. ENT: Ears normal, nares patent, oropharynx clear without exudates, moist mucous membranes. NECK: Trachea midline, full range of motion, supple. LUNGS: Breath sounds equal, clear to auscultation bilaterally, no wheezes, no crackles, no accessory muscle use. HEART: Regular rate and rhythm, SR 80s ABDOMEN: Soft, nontender, nondistended, normoactive bowel sounds, no guarding, no rebound, no hepatosplenomegaly, no masses. EXTREMITIES: 2+ pulses, warm, well-perfused, no edema. NEUROLOGICAL: Normal speech, gait not observed. PSYCH: combative, agitated, confused SKIN: Warm, dry, normal turgor, no rashes or lesions noted Laboratory Results - last 24 hr 12/01/16 12/01/16 12/01/16 05:20 05:20 08:00 WBC RBC Hgb Hct MCV MCHC RDW Plt Count MPV PTT (Actin FS) Sodium Cancelled Potassium Cancelled Chloride Cancelled Carbon Dioxide Cancelled Anion Gap Cancelled BUN Cancelled Creatinine Cancelled Creat Clearance w eGFR Cancelled Random Glucose Cancelled Calcium Cancelled Phosphorus Magnesium Cancelled Total Bilirubin Cancelled AST Cancelled ALT Cancelled Alkaline Phosphatase Cancelled Creatine Kinase Troponin I Total Protein Cancelled Albumin Cancelled TSH 0.65 D Cancelled Cancelled 03/26/17 03/27/17 03/27/17 17:15 05:05 05:05 WBC 4.4 RBC 4.23 Hgb 12.6 Hct 37.3 MCV 88.3 MCHC 33.8 RDW 13.5 Plt Count 134 MPV 8.9 PTT (Actin FS) 24.0 L D Sodium 142 Potassium 3.7 Chloride 105 Carbon Dioxide 27 Anion Gap 10 BUN 41 H Creatinine 1.4 H Creat Clearance w eGFR Random Glucose 87 Calcium 8.2 L Phosphorus Magnesium Total Bilirubin AST ALT Alkaline Phosphatase Creatine Kinase Troponin I Total Protein Albumin TSH 12/02/16 05:05 WBC RBC Hgb Hct MCV MCHC RDW Plt Count MPV PTT (Actin FS) Sodium Cancelled Potassium Cancelled Chloride Cancelled Carbon Dioxide Cancelled Anion Gap Cancelled BUN Cancelled Creatinine Cancelled Creat Clearance w eGFR Random Glucose Cancelled Calcium Cancelled Phosphorus Cancelled Magnesium Cancelled Total Bilirubin AST ALT Alkaline Phosphatase Creatine Kinase Cancelled Troponin I Cancelled Total Protein Albumin TSH Active Medications Generic Name Dose Route Start Last Admin Trade Name Freq PRN Reason Stop Dose Admin Acetaminophen 650 mg 12/01/16 14:01 Tylenol - PO Q6H PRN FEVER OR PAIN Albuterol Sulfate 1 amp 12/01/16 14:01 Ventolin 0.083% Nebulizer Soln - NEB Q6H PRN SHORT OF BREATH/WHEEZING Apixaban 2.5 mg 12/02/16 10:00 Eliquis - PO BID [facility] Chlorhexidine Gluconate 1 applic 12/01/16 22:00 12/01/16 22:26 Hibiclens For Decolonization - TP 1 applic HS [facility] Administration Cholecalciferol 2,000 unit 12/02/16 10:00 Vitamin D3 - PO DAILY [facility] Metoprolol Tartrate 25 mg 12/01/16 22:00 12/01/16 21:27 Lopressor - PO 25 mg BID [facility] Administration Mupirocin 1 applic 12/01/16 22:00 12/01/16 22:26 Bactroban Ointment (For Decolonization) - NS 12/05/16 21:59 1 applic BID [facility] Administration Tamsulosin HCl 0.4 mg 12/02/16 08:30 Flomax - PO DAILY@0830 [facility] ASSESSMENT/PLAN Patient is an 81 year old male with a past medical history of hypertension, possible CVA, TIA and BPH. He was admitted on 11/30/2016 with new onset arial fib and NSTEMI. Cardiology: Atrial fibrillation - paroxysmal Assessment/Plan: NSR on cardiac tech, BP stable Started on Eliquis on 12/02/16 for anticoagulation, was previously on a heparin drip but platelets began to trend down so heparin was stopped Echo reviewed Hypertension - likely chronic Assessment/Plan: On Lopressor 25mg PO BID BP stable Neurology: Altered mental status Assessment/Plan: Reported to be very confused overnight On exam, he was able to answer questions appropriately but was agitated overnight acute delirium vs, toxic psychosis from Levaquin Head CT scan ordered - awaiting results Neuro exam within normal limits Neuro checks, monitor mental status Cerebrovascular disease TIA Assessment/Plan: was on ASA, now on Eliquis Acute Kidney Injury Assessment/Plan: Creatinine baseline 1.2, now 1.4 Was given IV fluids, but became fluid overloaded and Lasix was administered Holding HCTZ ID: Fever of unknown origin Assessment/Plan: Started on empiric levofloxacin for coughing episodes WBC within normal limits Levofloxacin stopped for acute mental status changes Will re-culture secondary to acute delirium to rule out infection F.E.N. Fluids: PO intake adequate Electrolytes: hypokalemia repleted Nutrition: cholesterol/fat controlled/low sodium DVT prophylaxis: Eliquis, oob, ambulation Daily PT evaluation, Dispo: continues to require ICU level of care. Full Code. Visit type - Emergency Visit Emergency Visit: Yes ED Registration Date: 11/30/16 Care time: The patient presented to the Emergency Department on the above date and was hospitalized for further evaluation of their emergent condition. - New Patient This patient is new to me today: Yes Date on this admission: 12/02/16 - Critical Care Critical Care patient: Yes Total Critical Care Time (in minutes): 45 Critical Care Statement: The care of this patient involved high complexity decision making to prevent further life threatening deterioration of the patient 's condition and/or to evalute & treat vital organ system(s) failure or risk of failure. - Discharge Referral Referred to [facility] No
[2016-12-02 10:00] LABS: CALCIUM 8.7 mg/dL (8.5-10.1); CREATININE 1.6 mg/dL (0.7-1.3)
[2016-12-02] MEDS ORDERED: LEVOFLOXACIN 250 MG IVPB 50 ML IVPB SCH (10:00)
[2016-12-02] MEDS ORDERED: POTASSIUM CHLORIDE TABS 20 MEQ TABLET.ER (FP) PO ONE (10:20)
[2016-12-02] MEDS: APIXABAN 2.5 MG TABLET PO SCH ×2 (11:00→21:54)
[2016-12-02] MEDS: TAMSULOSIN HCL 0.4 MG CAP.ER.24H (FP) PO SCH (11:00)
[2016-12-02] MEDS: MUPIROCIN 2% TOPICAL OINTMENT FOR DECOLONIZATION NS SCH ×2 (11:00→21:54)
[2016-12-02] MEDS: METOPROLOL TARTRATE 25 MG TABLET (FP) PO SCH ×2 (11:00→21:55)
[2016-12-02] MEDS: CHOLECALCIFEROL (VITAMIN D3) 1,000 UNIT TABLET (FP) PO SCH (11:00)
[2016-12-02] MEDS ORDERED: HALOPERIDOL LACTATE 5 MG/ML ONE (11:14)
[2016-12-02] MEDS ORDERED: HALOPERIDOL LACTATE 5 MG/ML IM ONE (11:14)
--- NOTE | 2016-12-02 12:39 | PN ---
Teaching Attending Note Name of Resident: Zackary Watson ATTENDING PHYSICIAN STATEMENT I saw and evaluated the patient. I reviewed the resident's note and discussed the case with the resident. I agree with the resident's findings and plan as documented. SUBJECTIVE: Patient seen and examined in the ICU. Awake and alert, but increasing agitation and confusion. Denies CP or SOB. Hypotension has improved, but he felt dizziness when moved out of the bed. Noted CT head ordered. Intake & Output 11/29/16 11/30/16 12/01/16 12/02/16 23:59 23:59 23:59 23:59 Intake Total 1375 3259 125 Output Total 625 2450 2000 Balance 750 809 -1875 Weight 189 lb 4 oz 192 lb 5 oz Last Vital Signs Temp Pulse Resp BP Pulse Ox 98.1 F 87 22 110/57 97 12/02/16 10:00 12/02/16 11:37 12/02/16 11:37 12/02/16 11:37 12/02/16 07:57 Active Medications Acetaminophen (Tylenol -) 650 mg PO Q6H PRN PRN Reason: FEVER OR PAIN Albuterol Sulfate (Ventolin 0.083% Nebulizer Soln -) 1 amp NEB Q6H PRN PRN Reason: SHORT OF BREATH/WHEEZING Apixaban (Eliquis -) 2.5 mg PO BID [facility] Chlorhexidine Gluconate (Hibiclens For Decolonization -) 1 applic TP HS [facility] Last Admin: 12/01/16 22:26 Dose: 1 applic Cholecalciferol (Vitamin D3 -) 2,000 unit PO DAILY [facility] Metoprolol Tartrate (Lopressor -) 25 mg PO BID [facility] Last Admin: 12/01/16 21:27 Dose: 25 mg Mupirocin (Bactroban Ointment (For Decolonization) -) 1 applic NS BID [facility] Stop: 12/05/16 21:59 Last Admin: 12/01/16 22:26 Dose: 1 applic Tamsulosin HCl (Flomax -) 0.4 mg PO DAILY@0830 [facility] General: awake, alert, agitated/confused HEENT: PERRL, (-) JVD CVS: S1, S2 Pulm: Few scattered rhonchi Abd: obese, NT, ND, + BS Ext: (-) edema Neuro: CN grossly intact Laboratory Results - last 24 hr 12/01/16 12/02/16 12/02/16 17:15 05:05 05:05 WBC 4.4 RBC 4.23 Hgb 12.6 Hct 37.3 MCV 88.3 MCHC 33.8 RDW 13.5 Plt Count 134 MPV 8.9 PTT (Actin FS) 24.0 L D Sodium 142 Potassium 3.7 Chloride 105 Carbon Dioxide 27 Anion Gap 10 BUN 41 H Creatinine 1.4 H Random Glucose 87 Calcium 8.2 L Phosphorus Magnesium Creatine Kinase Troponin I 12/02/16 12/02/16 05:05 09:15 WBC RBC Hgb Hct MCV MCHC RDW Plt Count MPV PTT (Actin FS) Sodium Cancelled 145 Potassium Cancelled 3.4 L Chloride Cancelled 106 Carbon Dioxide Cancelled 27 Anion Gap Cancelled 12 BUN Cancelled 36 H Creatinine Cancelled 1.6 H Random Glucose Cancelled 107 H D Calcium Cancelled 8.7 Phosphorus Cancelled Magnesium Cancelled Creatine Kinase Cancelled Troponin I Cancelled IMP: Atrial fibrillation (Acute) NSTEMI (non-ST elevated myocardial infarction) (Acute) Orthostatic hypotension (Acute) Change in mental status (Acute) Orthostasis (Acute) PLAN: - Monitor rate - Need to review the risks and benefits of AC - O2 as needed - PRN Albuterol - Incentive spirometry - Monitor BP - Haldol PRN - Noted CT head ordered Dr Samson CCTime 35"
[2016-12-02] MEDS ORDERED: HALOPERIDOL LACTATE 5 MG/ML IM PRN ×2 (13:20→13:37)
--- NOTE | 2016-12-02 14:56 | PN ---
Progress Note, Physician Chief Complaint: Remains in sinus rhythm Appears more confused today now on restraint History of Present Illness: Patient was seen and examined. Awake and alert. Chart was reviewed Denies chest pain, SOB or palpitations. Confused - Current Medication List Current Medications: Active Medications Acetaminophen (Tylenol -) 650 mg PO Q6H PRN PRN Reason: FEVER OR PAIN Albuterol Sulfate (Ventolin 0.083% Nebulizer Soln -) 1 amp NEB Q6H PRN PRN Reason: SHORT OF BREATH/WHEEZING Apixaban (Eliquis -) 2.5 mg PO BID [facility] Last Admin: 12/02/16 11:00 Dose: 2.5 mg Chlorhexidine Gluconate (Hibiclens For Decolonization -) 1 applic TP HS [facility] Last Admin: 12/01/16 22:26 Dose: 1 applic Cholecalciferol (Vitamin D3 -) 2,000 unit PO DAILY [facility] Last Admin: 12/02/16 11:00 Dose: 2,000 unit Haloperidol (Haldol Injection (Fast Acting) -) 5 mg IM Q4H PRN PRN Reason: AGITATION Last Admin: 12/02/16 14:30 Dose: 5 mg Metoprolol Tartrate (Lopressor -) 25 mg PO BID [facility] Last Admin: 12/02/16 11:00 Dose: 25 mg Mupirocin (Bactroban Ointment (For Decolonization) -) 1 applic NS BID [facility] Stop: 12/05/16 21:59 Last Admin: 12/02/16 11:00 Dose: 1 applic Tamsulosin HCl (Flomax -) 0.4 mg PO DAILY@0830 [facility] Last Admin: 12/02/16 11:00 Dose: 0.4 mg - Objective Vital Signs: Vital Signs Temperature 98.1 F 12/02/16 10:00 Pulse Rate 84 12/02/16 13:25 Respiratory Rate 20 12/02/16 13:25 Blood Pressure 120/70 12/02/16 13:25 O2 Sat by Pulse Oximetry (%) 94 L 12/02/16 09:00 Neck: Yes: Supple Cardiovascular: Yes: Regular Rate and Rhythm, S1, S2 Respiratory: Yes: Diminished Gastrointestinal: Yes: Normal Bowel Sounds, Soft. No: Tenderness Edema: No Additional Findings/Remarks: - Review of Systems Cardiovascular: denies: Chest Pain, Palpitations, Shortness of Breath Respiratory: denies: Cough, Hemoptysis, Orthopnea, PND, SOB, SOB on Exertion Gastrointestinal: denies: Abdominal Pain, Constipation, Diarrhea, Melena, Nausea , Rectal Bleeding, Vomiting Musculoskeletal: denies: Joint Pain Neurological: (+) Dizziness. (+) Confusion, denies:Headache, Seizure, Syncope Labs: CBC, BMP 12/02/16 05:05 12/02/16 09:15 INR, PTT INR 1.01 (0.82-1.09) 11/30/16 11:30 Problem List - Problems (1) Atrial fibrillation Code(s): I48.91 - UNSPECIFIED ATRIAL FIBRILLATION Qualifiers: Atrial fibrillation type: paroxysmal Qualified Code(s): I48.0 - Paroxysmal atrial fibrillation (2) NSTEMI (non-ST elevated myocardial infarction) Code(s): I21.4 - NON-ST ELEVATION (NSTEMI) MYOCARDIAL INFARCTION (3) Orthostatic hypotension Code(s): I95.1 - ORTHOSTATIC HYPOTENSION (4) Demand ischemia Code(s): I24.8 - OTHER FORMS OF ACUTE ISCHEMIC HEART DISEASE (5) HTN (hypertension) Code(s): I10 - ESSENTIAL (PRIMARY) HYPERTENSION Qualifiers: Hypertension type: essential hypertension Qualified Code(s): I10 - Essential (primary) hypertension Assessment/Plan 1. Paroxymal atrial fibrillation now in sinus rhythm ([id number] score of 5 or 6) 2. Hypertension 3. History of orthostatic hypotension and dizziness 4. Cerebrovascular disease/TIA 5. Elevated troponin suggests CAD - demand ischemic injury - trending down PLAN: 1. Currently started on Eliquis 2.5 mg BID (age > 80 and cr > 1.5) in view of elevated [id number] score, however; will have to assess risks and benefits carefully. Currently patient is not bleeding or have any absolute contraindication for use of NOAC or Coumadin except for risk of fall and confusion. 2. Valsartan without HCT may be restarted once renal function improves 3. Low dose beta paolo - Metoprolol Tartrate as tolerated 4. Transthoracic echocardiography revealed normal LV systolic function, mild MR , moderate TR and mild DE 5. Head CT due to altered mental status 6. Monitor for orthostasis Further plans are to follow. Katty Alfaro MD
--- NOTE | 2016-12-02 16:40 | PN ---
Physical Exam: SUBJECTIVE: Patient seen and examined at bedside in ICU. He's delirious and combative but able to provide logical answers upon questioning. Per nurse, pt's mental status changed acutely overnight whereas yesterday he was AAO x 3 and very "sweet" person. OBJECTIVE: Vital Signs Period Temp Pulse Resp BP Sys/Saleh Pulse Ox Last 24 Hr 97.2 F-98.1 F 68-87 15-28 89-183/54-97 94-99 GENERAL: Awake, Alert, oriented to person, uncooperative, combative, agitated, not in cardiopulmonary distress EYES: sclera anicteric, conjunctiva clear. EARS, NOSE, THROAT: moist mucous membranes, no exudate LUNGS: CTAB HEART: RRR, normal S1 and S2 without murmur, rub or gallop. ABDOMEN: soft, normactive bs, non-tender, no rebound or guarding EXTREMITIES: No peripheral edema. CBCD WBC 4.4 K/mm3 (4.0-10.0) 12/02/16 05:05 RBC 4.23 M/mm3 (4.00-5.60) 12/02/16 05:05 Hgb 12.6 GM/dL (11.7-16.9) 12/02/16 05:05 Hct 37.3 % (35.4-49) 12/02/16 05:05 MCV 88.3 fl (80-96) 12/02/16 05:05 MCHC 33.8 g/dl (32.0-35.9) 12/02/16 05:05 RDW 13.5 % (11.9-15.9) 12/02/16 05:05 Plt Count 134 K/MM3 (134-434) 12/02/16 05:05 MPV 8.9 fl (7.5-11.1) 12/02/16 05:05 CMP Sodium 145 mmol/L (136-145) 12/02/16 09:15 Potassium 3.4 mmol/L (3.5-5.1) L 12/02/16 09:15 Chloride 106 mmol/L (98-107) 12/02/16 09:15 Carbon Dioxide 27 mmol/L (21-32) 12/02/16 09:15 Anion Gap 12 (8-16) 12/02/16 09:15 BUN 36 mg/dL (7-18) H 12/02/16 09:15 Creatinine 1.6 mg/dL (0.7-1.3) H 12/02/16 09:15 Creat Clearance w eGFR 44.69 (>60) 12/01/16 05:20 Calcium 8.7 mg/dL (8.5-10.1) 12/02/16 09:15 Total Bilirubin 0.6 mg/dL (0.2-1.0) 12/01/16 05:20 AST 25 U/L (15-37) 12/01/16 05:20 ALT 22 U/L (12-78) 12/01/16 05:20 Alkaline Phosphatase 52 U/L (45-117) 12/01/16 05:20 Total Protein 6.0 g/dl (6.4-8.2) L 12/01/16 05:20 Albumin 2.9 g/dl (3.4-5.0) L 12/01/16 05:20 Intake & Output 11/29/16 11/30/16 12/01/16 12/02/16 23:59 23:59 23:59 23:59 Intake Total 1375 3259 925 Output Total 625 2450 2000 Balance 750 809 -1075 Weight 85.91 kg 87.231 kg 83.506 kg Microbiology 11/30/16 12:30 Nasopharyngeal Swab Respiratory Virus Panel - Preliminary 11/30/16 12:30 Blood - Peripheral Venous Blood Culture - Preliminary NO GROWTH OBTAINED AFTER 48 HOURS, INCUBATION TO CONTINUE FOR 3 DAYS. 11/30/16 12:15 Blood - Peripheral Venous Blood Culture - Preliminary NO GROWTH OBTAINED AFTER 48 HOURS, INCUBATION TO CONTINUE FOR 3 DAYS. Active Medications Generic Name Dose Route Start Last Admin Trade Name Freq PRN Reason Stop Dose Admin Acetaminophen 650 mg 12/01/16 14:01 Tylenol - PO Q6H PRN FEVER OR PAIN Albuterol Sulfate 1 amp 12/01/16 14:01 Ventolin 0.083% Nebulizer Soln - NEB Q6H PRN SHORT OF BREATH/WHEEZING Apixaban 2.5 mg 12/02/16 10:00 12/02/16 11:00 Eliquis - PO 2.5 mg BID [facility] Administration Chlorhexidine Gluconate 1 applic 12/01/16 22:00 12/01/16 22:26 Hibiclens For Decolonization - TP 1 applic HS [facility] Administration Cholecalciferol 2,000 unit 12/02/16 10:00 12/02/16 11:00 Vitamin D3 - PO 2,000 unit DAILY [facility] Administration Haloperidol 5 mg 12/02/16 13:37 12/02/16 14:30 Haldol Injection (Fast Acting) - IM 5 mg Q4H PRN Administration AGITATION Metoprolol Tartrate 25 mg 12/01/16 22:00 12/02/16 11:00 Lopressor - PO 25 mg BID [facility] Administration Mupirocin 1 applic 12/01/16 22:00 12/02/16 11:00 Bactroban Ointment (For Decolonization) - NS 12/05/16 21:59 1 applic BID [facility] Administration Tamsulosin HCl 0.4 mg 12/02/16 08:30 12/02/16 11:00 Flomax - PO 0.4 mg DAILY@0830 [facility] Administration ASSESSMENT/PLAN: 81 yo M w/ h/o HTN, ?CVA and BPH admitted to the ICU for new onset of a-fib. Cardiac: New onset of a-fib; JHTN - Controlled rate in NSR now - Cont. eliquis * fall risk precaution - Cont. flomax and lopressor Neuro: Acute delirium - Unknown etiology: adverse drug rxn vs. stroke - D/C levaquin - Head CT when stable ID: Stable - Afrebile since 11/30 afternoon with normal WBC - Observe off abx FEN - Not on IVF - Normal lytes, cont. to monitor - Cholesterol/Fat control diet Prophylaxis - DVT: heparin TID SQ - GI: Not indicated Disposition - Cont. to monitor in ICU due to AMS Code status - Full code Visit type - Emergency Visit Emergency Visit: Yes ED Registration Date: 11/30/16 Care time: The patient presented to the Emergency Department on the above date and was hospitalized for further evaluation of their emergent condition. - New Patient This patient is new to me today: Yes Date on this admission: 12/02/16 - Critical Care Critical Care patient: Yes Total Critical Care Time (in minutes): 35 Critical Care Statement: The care of this patient involved high complexity decision making to prevent further life threatening deterioration of the patient 's condition and/or to evalute & treat vital organ system(s) failure or risk of failure.
[2016-12-02] MEDS: CHLORHEXIDINE GLUCONATE 4% CLEANSER FOR DECOLONIZATION TP SCH (21:54)
[2016-12-03 06:24] LABS: MCH 30.5 pg (25.7-33.7); MCHC 34.5 g/dl (32.0-35.9); MEAN CELL VOLUME 88.3 fl (80-96); MEAN PLT VOLUME 8.6 fl (7.5-11.1); PLATELET COUNT 154 K/MM3 (134-434); RDW 13.5 % (11.9-15.9); WHITE BLOOD COUNT 3.8 K/mm3 (4.0-10.0)
[2016-12-03 06:50] LABS: ALBUMIN 3.5 g/dl (3.4-5.0); CALCIUM 8.4 mg/dL (8.5-10.1); CREATININE 1.3 mg/dL (0.7-1.3); PHOSPHOROUS 2.3 mg/dL (2.5-4.9)
[2016-12-03 06:51] LABS: BILIRUBIN,TOTAL 0.9 mg/dL (0.2-1.0); TOT PROT 6.8 g/dl (6.4-8.2)
--- NOTE | 2016-12-03 07:01 | PN ---
Progress Note (short form) - Note Progress Note: Chief Complaint: Events noted, notes reviewed, confusion and disorientation are persistent, denies any chest pain or dyspnea, remains in sinus rhythm History of Present Illness: Seen and examined in the ICU. Events noted, notes reviewed, confusion and disorientation are persistent, denies any chest pain or dyspnea, remains in sinus rhythm Echocardiography revealed normal LV size and function, mild MR, moderate TR with RVSP of 30-40 mmHg - Current Medication List Current Medications Acetaminophen (Tylenol -) 650 mg PO Q6H PRN PRN Reason: FEVER OR PAIN Albuterol Sulfate (Ventolin 0.083% Nebulizer Soln -) 1 amp NEB Q6H PRN PRN Reason: SHORT OF BREATH/WHEEZING Last Admin: 12/03/16 05:30 Dose: 1 amp Apixaban (Eliquis -) 2.5 mg PO BID [facility] Last Admin: 12/02/16 21:54 Dose: Not Given Chlorhexidine Gluconate (Hibiclens For Decolonization -) 1 applic TP HS [facility] Last Admin: 12/02/16 21:54 Dose: Not Given Cholecalciferol (Vitamin D3 -) 2,000 unit PO DAILY [facility] Last Admin: 12/02/16 11:00 Dose: 2,000 unit Haloperidol (Haldol Injection (Fast Acting) -) 5 mg IM Q4H PRN PRN Reason: AGITATION Last Admin: 12/02/16 14:30 Dose: 5 mg Metoprolol Tartrate (Lopressor -) 25 mg PO BID [facility] Last Admin: 12/02/16 21:55 Dose: Not Given Mupirocin (Bactroban Ointment (For Decolonization) -) 1 applic NS BID [facility] Stop: 12/05/16 21:59 Last Admin: 12/02/16 21:54 Dose: Not Given Tamsulosin HCl (Flomax -) 0.4 mg PO DAILY@0830 [facility] Last Admin: 12/02/16 11:00 Dose: 0.4 mg - Review of Systems Cardiovascular: As noted above Respiratory: denies: Cough or Sputum Production Gastrointestinal: denies: Nausea, Vomiting, Diarrhea, Constipation or Abdominal Pain Musculoskeletal: denies: Joint Pain Neurological: (+) Confusion - Objective Vital Signs: Last Vital Signs Temp Pulse Resp BP Pulse Ox 98.3 F 57 L 14 130/49 100 12/02/16 17:25 12/03/16 06:00 12/03/16 06:00 12/03/16 06:00 12/02/16 20:13 Neck: Supple Negative JVD Cardiovascular: S1 S2 Regular Rate and Rhythm Grade Grade 3-4/6 LEE Respiratory: Diminished Breath Sounds at the Bases Gastrointestinal: Soft Benign Normal Bowel Sounds Ext: No Edema Labs: CBC, BMP 12/03/16 05:15 12/03/16 05:15 Hepatic Panel Total Bilirubin 0.9 mg/dL (0.2-1.0) D 12/03/16 05:15 AST 43 U/L (15-37) H D 12/03/16 05:15 ALT 29 U/L (12-78) D 12/03/16 05:15 Alkaline Phosphatase 61 U/L (45-117) 12/03/16 05:15 Albumin 3.5 g/dl (3.4-5.0) D 12/03/16 05:15 INR, PTT INR 1.01 (0.82-1.09) 11/30/16 11:30 Assessment/Plan ASSESSMENT: 1. Paroxysmal atrial fibrillation currently in sinus rhythm [id number] score of 6 on A/C with NOAC's 2. 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 Hypertension 5. History of orthostatic hypotension, symptomatic 6. History of cerebro-vascular disease/TIA 7. Confusion and disorientation, organic brain syndrome 8. CKD PLAN: 1. Continue Eliquis with close monitoring of CBC, custodial A/C may need to be re-evaluated considering the above noted confusion and disorientation related to probable OBS, may need to consider LA appendage closure device 2. Continue Lopressor 3. Resume Diovan once renal function is stabilized 4. May transfer to telemetry from cardiovascular point of view Vidhi Vargas MD
[2016-12-03] MEDS: TAMSULOSIN HCL 0.4 MG CAP.ER.24H (FP) PO SCH (08:49)
[2016-12-03] MEDS: APIXABAN 2.5 MG TABLET PO SCH ×2 (09:19→21:45)
[2016-12-03] MEDS: METOPROLOL TARTRATE 25 MG TABLET (FP) PO SCH ×2 (09:19→21:46)
[2016-12-03] MEDS: MUPIROCIN 2% TOPICAL OINTMENT FOR DECOLONIZATION NS SCH ×2 (09:20→21:46)
[2016-12-03] MEDS: CHOLECALCIFEROL (VITAMIN D3) 1,000 UNIT TABLET (FP) PO SCH (09:23)
--- NOTE | 2016-12-03 09:29 | PN ---
Physical Exam: SUBJECTIVE: Patient seen and examined. Denies any pain, states he feels well. OBJECTIVE: Mental status much improved but needs close monitoring for any acute mental status changes CT scan of head negative Was given Haldol yesterday Vital Signs Period Temp Pulse Resp BP Sys/Saleh Pulse Ox Last 24 Hr 98.0 F-98.3 F 54-87 12-26 110-138/49-85 96-100 GENERAL: The patient is awake, alert, combative, n o periods of confusion/ hallucination on my exam. HEAD: Normal with no signs of trauma, facial symmetry EYES: PERRL, extraocular movements intact, sclera anicteric, conjunctiva clear. No ptosis. ENT: Ears normal, nares patent, oropharynx clear without exudates, moist mucous membranes. NECK: Trachea midline, full range of motion, supple. LUNGS: Breath sounds equal, clear to auscultation bilaterally, no wheezes, no crackles, no accessory muscle use. HEART: Regular rate and rhythm, SR 80s ABDOMEN: Soft, nontender, nondistended, normoactive bowel sounds, no guarding, no rebound, no hepatosplenomegaly, no masses. EXTREMITIES: 2+ pulses, warm, well-perfused, no edema. NEUROLOGICAL: Normal speech, gait not observed. PSYCH: not agitated, no confusion noted on exam. SKIN: Warm, dry, normal turgor, no rashes or lesions noted Laboratory Results - last 24 hr 12/02/16 12/03/16 12/03/16 09:15 05:15 05:15 WBC 3.8 L RBC 4.28 Hgb 13.0 Hct 37.8 MCV 88.3 MCHC 34.5 RDW 13.5 Plt Count 154 MPV 8.6 PTT (Actin FS) 27.0 Sodium 145 Potassium 3.4 L Chloride 106 Carbon Dioxide 27 Anion Gap 12 BUN 36 H Creatinine 1.6 H Creat Clearance w eGFR Random Glucose 107 H D Calcium 8.7 Phosphorus Magnesium Total Bilirubin AST ALT Alkaline Phosphatase Ammonia Total Protein Albumin 12/03/16 12/03/16 05:15 05:15 WBC RBC Hgb Hct MCV MCHC RDW Plt Count MPV PTT (Actin FS) Sodium 147 H Potassium 3.6 Chloride 107 Carbon Dioxide 31 Anion Gap 9 BUN 33 H Creatinine 1.3 Creat Clearance w eGFR 52.72 Random Glucose 77 D Calcium 8.4 L Phosphorus 2.3 L Magnesium 2.0 Total Bilirubin 0.9 D AST 43 H D ALT 29 D Alkaline Phosphatase 61 Ammonia 20.59 Total Protein 6.8 Albumin 3.5 D Active Medications Generic Name Dose Route Start Last Admin Trade Name Freq PRN Reason Stop Dose Admin Acetaminophen 650 mg 12/01/16 14:01 Tylenol - PO Q6H PRN FEVER OR PAIN Albuterol Sulfate 1 amp 12/01/16 14:01 12/03/16 05:30 Ventolin 0.083% Nebulizer Soln - NEB 1 amp Q6H PRN Administration SHORT OF BREATH/WHEEZING Apixaban 2.5 mg 12/02/16 10:00 12/03/16 09:19 Eliquis - PO 2.5 mg BID SAUL Administration Chlorhexidine Gluconate 1 applic 12/01/16 22:00 12/02/16 21:54 Hibiclens For Decolonization - TP Not Given HS [facility] Cholecalciferol 2,000 unit 12/02/16 10:00 12/03/16 09:23 Vitamin D3 - PO 2,000 unit DAILY SAUL Administration Haloperidol 5 mg 12/02/16 13:37 12/02/16 14:30 Haldol Injection (Fast Acting) - IM 5 mg Q4H PRN Administration AGITATION Metoprolol Tartrate 25 mg 12/01/16 22:00 12/03/16 09:19 Lopressor - PO 25 mg BID SAUL Administration Mupirocin 1 applic 12/01/16 22:00 12/03/16 09:20 Bactroban Ointment (For Decolonization) - NS 12/05/16 21:59 1 applic BID SAUL Administration Tamsulosin HCl 0.4 mg 12/02/16 08:30 12/03/16 08:49 Flomax - PO 0.4 mg DAILY@0830 SAUL Administration ASSESSMENT/PLAN: Patient is an 81 year old male with a past medical history of hypertension, CVA , TIA and BPH. He was admitted on 11/30/2016 with new onset arial fib and NSTEMI. Imaging: CT scan of head 12/02/16 - no acute pathology Cardiology: Atrial fibrillation - paroxysmal Assessment/Plan: NSR on monitoring specialist, BP stable Started on Eliquis on 12/02/16 for anticoagulation, was previously on a heparin drip but platelets began to trend down so heparin was stopped Platelets now trending up Echo reviewed On Metoprolol 25mg BID Hypertension - chronic Assessment/Plan: On Lopressor 25mg PO BID BP stable, Diovan to be started once renal function improves Neurology: Altered mental status - resolved Assessment/Plan: Mental status back to baseline Head CT scan negative Neuro exam within normal limits Neuro checks, monitor mental status Cerebrovascular disease/TIA - history Assessment/Plan: was on ASA, now on Eliquis BID Acute Kidney Injury Assessment/Plan: Creatinine baseline 1.2, now 1.3 Was given IV fluids, but became fluid overloaded and Lasix was administered Holding HCTZ until renal function improves ID: Fever of unknown origin - resolved Assessment/Plan: WBC within normal limits, afebrile Levofloxacin stopped for acute mental status changes repeat blood cultures pending F.E.N. Fluids: PO intake adequate Electrolytes: hypokalemia resolved Nutrition: cholesterol/fat controlled/low sodium DVT prophylaxis: Eliquis, oob, ambulation Daily PT evaluation, Dispo: continues to require ICU level of care. Full Code. Visit type - Emergency Visit Emergency Visit: Yes ED Registration Date: 11/30/16 Care time: The patient presented to the Emergency Department on the above date and was hospitalized for further evaluation of their emergent condition. - New Patient This patient is new to me today: No - Critical Care Critical Care patient: Yes Total Critical Care Time (in minutes): 45 Critical Care Statement: The care of this patient involved high complexity decision making to prevent further life threatening deterioration of the patient 's condition and/or to evalute & treat vital organ system(s) failure or risk of failure. - Discharge Referral Referred to [facility] Med P.C.: No
--- NOTE | 2016-12-03 12:45 | PN ---
Teaching Attending Note Name of Resident: Zackary Watson ATTENDING PHYSICIAN STATEMENT I saw and evaluated the patient. I reviewed the resident's note and discussed the case with the resident. I agree with the resident's findings and plan as documented. SUBJECTIVE: Patient seen and examined in the ICU. Awake and alert and oriented today. Resolved agitation and confusion. Denies CP or SOB. Hemodynamics improving. CT Head: No acute pathology Intake & Output 11/30/16 12/01/16 12/02/16 12/03/16 23:59 23:59 23:59 23:59 Intake Total 1375 3259 925 Output Total 625 2450 2000 Balance 750 809 -1075 Weight 189 lb 6.4 oz 192 lb 5 oz 184 lb 1.6 oz 183 lb 10.321 oz Last Vital Signs Temp Pulse Resp BP Pulse Ox 98.2 F 64 14 111/65 100 12/03/16 08:00 12/03/16 10:00 12/03/16 10:00 12/03/16 10:00 12/03/16 09:00 Active Medications Acetaminophen (Tylenol -) 650 mg PO Q6H PRN PRN Reason: FEVER OR PAIN Albuterol Sulfate (Ventolin 0.083% Nebulizer Soln -) 1 amp NEB Q6H PRN PRN Reason: SHORT OF BREATH/WHEEZING Last Admin: 12/03/16 05:30 Dose: 1 amp Apixaban (Eliquis -) 2.5 mg PO BID [facility] Last Admin: 12/03/16 09:19 Dose: 2.5 mg Chlorhexidine Gluconate (Hibiclens For Decolonization -) 1 applic TP HS [facility] Last Admin: 12/02/16 21:54 Dose: Not Given Cholecalciferol (Vitamin D3 -) 2,000 unit PO DAILY [facility] Last Admin: 12/03/16 09:23 Dose: 2,000 unit Haloperidol (Haldol Injection (Fast Acting) -) 5 mg IM Q4H PRN PRN Reason: AGITATION Last Admin: 12/02/16 14:30 Dose: 5 mg Metoprolol Tartrate (Lopressor -) 25 mg PO BID [facility] Last Admin: 12/03/16 09:19 Dose: 25 mg Mupirocin (Bactroban Ointment (For Decolonization) -) 1 applic NS BID [facility] Stop: 12/05/16 21:59 Last Admin: 12/03/16 09:20 Dose: 1 applic Tamsulosin HCl (Flomax -) 0.4 mg PO DAILY@0830 SAUL Last Admin: 12/03/16 08:49 Dose: 0.4 mg General: awake, alert, oriented HEENT: PERRL, (-) JVD CVS: S1, S2 Pulm: Few scattered rhonchi Abd: obese, NT, ND, + BS Ext: (-) edema Neuro: CN grossly intact Laboratory Results - last 24 hr 12/03/16 12/03/16 12/03/16 05:15 05:15 05:15 WBC 3.8 L RBC 4.28 Hgb 13.0 Hct 37.8 MCV 88.3 MCHC 34.5 RDW 13.5 Plt Count 154 MPV 8.6 PTT (Actin FS) 27.0 Sodium Potassium Chloride Carbon Dioxide Anion Gap BUN Creatinine Creat Clearance w eGFR Random Glucose Calcium Phosphorus Magnesium Total Bilirubin AST ALT Alkaline Phosphatase Ammonia 20.59 Total Protein Albumin 12/03/16 05:15 WBC RBC Hgb Hct MCV MCHC RDW Plt Count MPV PTT (Actin FS) Sodium 147 H Potassium 3.6 Chloride 107 Carbon Dioxide 31 Anion Gap 9 BUN 33 H Creatinine 1.3 Creat Clearance w eGFR 52.72 Random Glucose 77 D Calcium 8.4 L Phosphorus 2.3 L Magnesium 2.0 Total Bilirubin 0.9 D AST 43 H D ALT 29 D Alkaline Phosphatase 61 Ammonia Total Protein 6.8 Albumin 3.5 D IMP: Atrial fibrillation (Acute) NSTEMI (non-ST elevated myocardial infarction) (Acute) Orthostatic hypotension (Acute) Change in mental status (Acute) Orthostasis (Acute) PLAN: - Monitor rate - Need to review the risks and benefits of AC - O2 as needed - PRN Albuterol - Incentive spirometry - Monitor BP - Haldol PRN - 4W/4S monitoring Dr Samson CCTime 35"
--- NOTE | 2016-12-03 13:25 | EKG ---
Test Reason : Blood Pressure : / mmHG Vent. Rate : 069 BPM Atrial Rate : 069 BPM P-R Int : 146 ms QRS Dur : 138 ms QT Int : 472 ms P-R-T Axes : 050 -45 -03 degrees QTc Int : 505 ms NORMAL SINUS RHYTHM RIGHT BUNDLE BRANCH BLOCK LEFT ANTERIOR FASCICULAR BLOCK BIFASCICULAR BLOCK MINIMAL VOLTAGE CRITERIA FOR LVH, MAY BE NORMAL VARIANT ABNORMAL ECG WHEN COMPARED WITH ECG OF 30-NOV-2016 10:46, SINUS RHYTHM HAS REPLACED ATRIAL FIBRILLATION Confirmed by ERVIN ELLIS MD ([id number]) on 12/03/2016 1:24:53 PM Referred By: ERVIN ELLIS Confirmed By:ERVIN ELLIS MD
--- NOTE | 2016-12-03 13:46 | PN ---
Physical Exam: SUBJECTIVE: Patient seen and examined at bedside in ICU. His mental status improved dramatically and able to cooperate and converse better. Denies any fever, chills , n/v, chest pain, palpitation, sob, urinary or bowel sx. OBJECTIVE: Vital Signs Period Temp Pulse Resp BP Sys/Saleh Pulse Ox Last 24 Hr 98.0 F-98.3 F 54-68 12-19 111-138/49-85 96-100 GENERAL: Awake, Alert, oriented to person and place, calm, cooperative, not in cardiopulmonary distress EYES: sclera anicteric, conjunctiva clear. EARS, NOSE, THROAT: moist mucous membranes, no exudate LUNGS: CTAB HEART: RRR, normal S1 and S2 without murmur, rub or gallop. ABDOMEN: soft, normactive bs, non-tender, no rebound or guarding EXTREMITIES: No peripheral edema. CBCD WBC 3.8 K/mm3 (4.0-10.0) L 12/03/16 05:15 RBC 4.28 M/mm3 (4.00-5.60) 12/03/16 05:15 Hgb 13.0 GM/dL (11.7-16.9) 12/03/16 05:15 Hct 37.8 % (35.4-49) 12/03/16 05:15 MCV 88.3 fl (80-96) 12/03/16 05:15 MCHC 34.5 g/dl (32.0-35.9) 12/03/16 05:15 RDW 13.5 % (11.9-15.9) 12/03/16 05:15 Plt Count 154 K/MM3 (134-434) 12/03/16 05:15 MPV 8.6 fl (7.5-11.1) 12/03/16 05:15 CMP Sodium 147 mmol/L (136-145) H 12/03/16 05:15 Potassium 3.6 mmol/L (3.5-5.1) 12/03/16 05:15 Chloride 107 mmol/L (98-107) 12/03/16 05:15 Carbon Dioxide 31 mmol/L (21-32) 12/03/16 05:15 Anion Gap 9 (8-16) 12/03/16 05:15 BUN 33 mg/dL (7-18) H 12/03/16 05:15 Creatinine 1.3 mg/dL (0.7-1.3) 12/03/16 05:15 Creat Clearance w eGFR 52.72 (>60) 12/03/16 05:15 Calcium 8.4 mg/dL (8.5-10.1) L 12/03/16 05:15 Total Bilirubin 0.9 mg/dL (0.2-1.0) D 12/03/16 05:15 AST 43 U/L (15-37) H D 12/03/16 05:15 ALT 29 U/L (12-78) D 12/03/16 05:15 Alkaline Phosphatase 61 U/L (45-117) 12/03/16 05:15 Total Protein 6.8 g/dl (6.4-8.2) 12/03/16 05:15 Albumin 3.5 g/dl (3.4-5.0) D 12/03/16 05:15 Intake & Output 11/30/16 12/01/16 12/02/16 12/03/16 23:59 23:59 23:59 23:59 Intake Total 1375 3259 925 Output Total 901 2450 1999 Balance 750 809 -1075 Weight 85.91 kg 87.231 kg 83.506 kg 83.3 kg Active Medications Generic Name Dose Route Start Last Admin Trade Name Freq PRN Reason Stop Dose Admin Acetaminophen 650 mg 12/01/16 14:01 Tylenol - PO Q6H PRN FEVER OR PAIN Albuterol Sulfate 1 amp 12/01/16 14:01 12/03/16 05:30 Ventolin 0.083% Nebulizer Soln - NEB 1 amp Q6H PRN Administration SHORT OF BREATH/WHEEZING Apixaban 2.5 mg 12/02/16 10:00 12/03/16 09:19 Eliquis - PO 2.5 mg BID SAUL Administration Chlorhexidine Gluconate 1 applic 12/01/16 22:00 12/02/16 21:54 Hibiclens For Decolonization - TP Not Given HS SAUL Cholecalciferol 2,000 unit 12/02/16 10:00 12/03/16 09:23 Vitamin D3 - PO 2,000 unit DAILY SAUL Administration Haloperidol 5 mg 12/02/16 13:37 12/02/16 14:30 Haldol Injection (Fast Acting) - IM 5 mg Q4H PRN Administration AGITATION Metoprolol Tartrate 25 mg 12/01/16 22:00 12/03/16 09:19 Lopressor - PO 25 mg BID SAUL Administration Mupirocin 1 applic 12/01/16 22:00 12/03/16 09:20 Bactroban Ointment (For Decolonization) - NS 12/05/16 21:59 1 applic BID SAUL Administration Tamsulosin HCl 0.4 mg 12/02/16 08:30 12/03/16 08:49 Flomax - PO 0.4 mg DAILY@0830 SAUL Administration Microbiology 11/30/16 12:30 Blood - Peripheral Venous Blood Culture - Preliminary NO GROWTH OBTAINED AFTER 72 HOURS, INCUBATION TO CONTINUE FOR 2 DAYS. 11/30/16 12:15 Blood - Peripheral Venous Blood Culture - Preliminary NO GROWTH OBTAINED AFTER 72 HOURS, INCUBATION TO CONTINUE FOR 2 DAYS. 11/30/16 12:30 Nasopharyngeal Swab Respiratory Virus Panel - Preliminary Imaging CT head on 12/02: negative for bleed or stroke ASSESSMENT/PLAN: 81 yo M w/ h/o HTN, ?CVA and BPH admitted to the ICU for new onset of a-fib. Cardiac: New onset of a-fib; JHTN - Controlled rate in NSR - Cont. eliquis * fall risk precaution - Cont. flomax and lopressor Neuro: Acute delirium - Improving - Unknown etiology: likely adverse drug rxn - D/C levaquin - Haldol PRN - Head CT negative for stroke ID: Stable - Afrebile since 11/30 afternoon with normal WBC - Observe off abx FEN - Not on IVF - Mild hypernatremia, cont. to monitor - Cholesterol/Fat control diet Prophylaxis - DVT: heparin TID SQ - GI: Not indicated Disposition - Transfer to telemetry Code status - Full code Visit type - Emergency Visit Emergency Visit: No - New Patient This patient is new to me today: No - Critical Care Critical Care patient: Yes Total Critical Care Time (in minutes): 35 Critical Care Statement: The care of this patient involved high complexity decision making to prevent further life threatening deterioration of the patient 's condition and/or to evalute & treat vital organ system(s) failure or risk of failure.
[2016-12-03] MEDS: CHLORHEXIDINE GLUCONATE 4% CLEANSER FOR DECOLONIZATION TP SCH (21:46)
[2016-12-03] MEDS ORDERED: ALBUTEROL SO4 0.083% IH SOL 2.5 MG/3 ML VIAL.NEB. NEB PRN (23:12)
[2016-12-03] MEDS ORDERED: HALOPERIDOL LACTATE 5 MG/ML IM PRN (23:12)
[2016-12-03] MEDS ORDERED: ACETAMINOPHEN 325 MG TABLET (FP) PO PRN (23:12)
[2016-12-04 08:05] LABS: MCHC 33.8 g/dl (32.0-35.9); MEAN CELL VOLUME 88.9 fl (80-96); MEAN PLT VOLUME 8.6 fl (7.5-11.1); PLATELET COUNT 166 K/MM3 (134-434); RDW 13.7 % (11.9-15.9); WHITE BLOOD COUNT 6.2 K/mm3 (4.0-10.0)
[2016-12-04 08:06] LABS: CALCIUM 8.6 mg/dL (8.5-10.1)
[2016-12-04 08:08] LABS: CREATININE 1.3 mg/dL (0.7-1.3); PHOSPHOROUS 2.5 mg/dL (2.5-4.9)
--- NOTE | 2016-12-04 08:56 | PN ---
Progress Note, Physician Chief Complaint: Remains in sinus rhythm Not in distress Still on restrain due to fall risk History of Present Illness: Patient was seen and examined. Awake and alert. Chart was reviewed Denies chest pain, SOB or palpitations. - Current Medication List Current Medications: Active Medications Acetaminophen (Tylenol -) 650 mg PO Q6H PRN PRN Reason: FEVER OR PAIN Albuterol Sulfate (Ventolin 0.083% Nebulizer Soln -) 1 amp NEB Q6H PRN PRN Reason: SHORT OF BREATH/WHEEZING Apixaban (Eliquis -) 2.5 mg PO BID [facility] Cholecalciferol (Vitamin D3 -) 2,000 unit PO DAILY [facility] Haloperidol (Haldol Injection (Fast Acting) -) 5 mg IM Q4H PRN PRN Reason: AGITATION Metoprolol Tartrate (Lopressor -) 25 mg PO BID [facility] Tamsulosin HCl (Flomax -) 0.4 mg PO DAILY@0830 [facility] - Objective Vital Signs: Vital Signs Temperature 97.7 F 12/03/16 23:16 Pulse Rate 96 H 12/03/16 23:16 Respiratory Rate 20 12/03/16 23:16 Blood Pressure 154/75 12/03/16 23:16 O2 Sat by Pulse Oximetry (%) 93 L 12/03/16 23:16 Neck: Yes: Supple Cardiovascular: Yes: Regular Rate and Rhythm, S1, S2 Respiratory: Yes: Diminished Gastrointestinal: Yes: Normal Bowel Sounds, Soft. No: Tenderness Edema: No Additional Findings/Remarks: - Review of Systems Cardiovascular: denies: Chest Pain, Palpitations, Shortness of Breath Respiratory: denies: Cough, Hemoptysis, Orthopnea, PND, SOB, SOB on Exertion Gastrointestinal: denies: Abdominal Pain, Constipation, Diarrhea, Melena, Nausea , Rectal Bleeding, Vomiting Musculoskeletal: denies: Joint Pain Neurological: (+) Dizziness. (+) Confusion, denies:Headache, Seizure, Syncope Labs: CBC, BMP 12/04/16 05:42 12/04/16 05:42 Problem List - Problems (1) Atrial fibrillation Code(s): I48.91 - UNSPECIFIED ATRIAL FIBRILLATION Qualifiers: Atrial fibrillation type: paroxysmal Qualified Code(s): I48.0 - Paroxysmal atrial fibrillation (2) NSTEMI (non-ST elevated myocardial infarction) Code(s): I21.4 - NON-ST ELEVATION (NSTEMI) MYOCARDIAL INFARCTION (3) Orthostatic hypotension Code(s): I95.1 - ORTHOSTATIC HYPOTENSION (4) Demand ischemia Code(s): I24.8 - OTHER FORMS OF ACUTE ISCHEMIC HEART DISEASE (5) HTN (hypertension) Code(s): I10 - ESSENTIAL (PRIMARY) HYPERTENSION Qualifiers: Hypertension type: essential hypertension Qualified Code(s): I10 - Essential (primary) hypertension Assessment/Plan 1. Paroxysmal atrial fibrillation now in sinus rhythm ([id number] score of 5 or 6) 2. Hypertension 3. History of orthostatic hypotension and dizziness 4. Cerebrovascular disease/TIA 5. Elevated troponin suggests CAD - post demand ischemic injury PLAN: 1. Continue Eliquis 2.5 mg BID (age > 80 and cr > 1.5) in view of elevated [id number] score, however; will have to assess risks and benefits carefully. Currently patient is not bleeding or have any absolute contraindication for use of NOAC or Coumadin except for risk of fall and confusion. 2. Valsartan HCT was started 3. Metoprolol Tartrate as tolerated 5. Head CT report noted 6. Monitor for orthostasis Further plans are to follow. Laineed Pedrito Alfaro MD
[2016-12-04] MEDS ORDERED: MUPIROCIN 2% TOPICAL OINTMENT FOR DECOLONIZATION NS SCH (10:00)
[2016-12-04] MEDS: TAMSULOSIN HCL 0.4 MG CAP.ER.24H (FP) PO SCH (10:06)
[2016-12-04] MEDS: CHOLECALCIFEROL (VITAMIN D3) 1,000 UNIT TABLET (FP) PO SCH (10:07)
[2016-12-04] MEDS: METOPROLOL TARTRATE 25 MG TABLET (FP) PO SCH ×2 (10:08→22:00)
[2016-12-04] MEDS: APIXABAN 2.5 MG TABLET PO SCH ×2 (10:09→22:00)
--- NOTE | 2016-12-04 16:36 | PN ---
Physical Exam: SUBJECTIVE: Patient seen and examined oob to wheelchair. Voices no complaints. OBJECTIVE: Vital Signs Period Temp Pulse Resp BP Sys/Saleh Pulse Ox Last 24 Hr 97.7 F-98.2 F 63-96 18-24 108-154/59-78 93-100 GENERAL: The patient is awake, alert, and fully oriented, in no acute distress. HEAD: Normal with no signs of trauma. EYES: PERRL, extraocular movements intact, sclera anicteric, conjunctiva clear. No ptosis. LUNGS: CTA HEART: Regular rate and rhythm, S1, S2 without murmur, rub or gallop. ABDOMEN: Soft, nontender, nondistended, normoactive bowel sounds, no guarding, no rebound, no hepatosplenomegaly, no masses. EXTREMITIES: 2+ pulses, warm, well-perfused, no edema. NEUROLOGICAL: Cranial nerves II through XII grossly intact. Normal speech, gait not observed. Laboratory Results - last 24 hr 12/04/16 12/04/16 12/04/16 05:42 05:42 05:42 WBC 6.2 D RBC 4.27 Hgb 12.8 Hct 38.0 MCV 88.9 MCHC 33.8 RDW 13.7 Plt Count 166 MPV 8.6 PTT (Actin FS) 25.8 L Sodium 147 H Potassium 4.0 Chloride 110 H Carbon Dioxide 27 Anion Gap 10 BUN 36 H Creatinine 1.3 Random Glucose 97 D Calcium 8.6 Phosphorus 2.5 Active Medications Generic Name Dose Route Start Last Admin Trade Name Freq PRN Reason Stop Dose Admin Acetaminophen 650 mg 12/03/16 23:12 Tylenol - PO Q6H PRN FEVER OR PAIN Albuterol Sulfate 1 amp 12/03/16 23:12 Ventolin 0.083% Nebulizer Soln - NEB Q6H PRN SHORT OF BREATH/WHEEZING Apixaban 2.5 mg 12/04/16 10:00 12/04/16 10:09 Eliquis - PO 2.5 mg BID SAUL Administration Cholecalciferol 2,000 unit 12/04/16 10:00 12/04/16 10:07 Vitamin D3 - PO 2,000 unit DAILY SAUL Administration Haloperidol 5 mg 12/03/16 23:12 Haldol Injection (Fast Acting) - IM Q4H PRN AGITATION Metoprolol Tartrate 25 mg 12/04/16 10:00 12/04/16 10:08 Lopressor - PO 25 mg BID SAUL Administration Tamsulosin HCl 0.4 mg 12/04/16 08:30 12/04/16 10:06 Flomax - PO 0.4 mg DAILY@0830 SAUL Administration Imaging 11/30 ECG: atrial fibrillation/flutter with ventricular rate 84, left axis deviation, RBBB previously noted on prior EKG of 11/16, T wave inversions V1, V2 , V3; T wave inversions in V2 and V3 not seen on previous ECG 01/04/1611/30 Echo: LV normal; RV normal; mild MR; moderate TR; mild pHTN; mild PI ASSESSMENT/PLAN 81 year-old male with a PMH of HTN, possible cerebrovascular disease/TIA, and BPH. Admitted with new onset afib and NSTEMI. Paroxysmal atrial fibrillation, newly diagnosed --remains in sinus rhythm in high 40's-->low 60s --[id number] score of 5 or 6; continue Eliquis --need to decide on long-term anti-coagulation Hypertension --BP well-controlled --continue metoprolol NSTEMI v. demand ischemia --serial troponins 0.94--0.78-->0.62 --ASA, beta paolo, Eliquis Diastolic heart failure, chronic --restart home valsartan/HCTZ Delirium --resolved --Haldol PRN AMI --Cr trending down 1.3 (<--2.0); baseline 1.2 Fever --T100.6 on admission, afebrile continuously since --no leukocytosis --continue to observe off antibiotics BPH --resume Flomax Cerebrovascular disease/TIA --resume low-dose ASA F/E/N Fluids: PO intake adequate Electrolytes: replete as indicated Nutrition: cholesterol/fat controlled/low sodium DVT prophylaxis: Eliquis, oob, ambulation PT evaluation Daily PT Dispo: continues to require inpatient care. Full code. Visit type - Emergency Visit Emergency Visit: Yes ED Registration Date: 11/30/16 Care time: The patient presented to the Emergency Department on the above date and was hospitalized for further evaluation of their emergent condition. - New Patient This patient is new to me today: No - Critical Care Critical Care patient: No
[2016-12-04] MEDS: ASPIRIN COATED 81 MG TABLET.EC PO SCH (17:50)
[2016-12-04] MEDS: HYDROCHLOROTHIAZIDE 12.5 MG CAPSULE (FP) PO SCH (17:50)
[2016-12-04] MEDS: VALSARTAN 80 MG TABLET (UD) PO SCH (17:51)
[2016-12-04] MEDS ORDERED: LORAZEPAM CARPU-JECT 2 MG/ML DISP.SYRIN IM ONE (20:50)
--- NOTE | 2016-12-04 21:25 | HOSP ---
Subjective - Review of Symptoms Events since last encounter: Called for a code 10 for this patient. Pt extremely agitated, climbing out of bed, grabbing at staff members, kicking and punching out. Pt unsteady on feet as per nursing staff. Refused redirection to sit down on bed, got up and attempted to walk but was extremely unsteady on feet and almost fell. Subjective: Pt denies any complaint of chest pain, SOB, states that he wants to be left alone. Physical Examination Vital Signs: Vital Signs Temperature 98.2 F 12/04/16 15:00 Pulse Rate 63 12/04/16 15:00 Respiratory Rate 18 12/04/16 15:00 Blood Pressure 111/63 12/04/16 15:00 O2 Sat by Pulse Oximetry (%) 95 12/04/16 10:00 Cardiovascular: Yes: Pulse Irregular, S1, S2 Respiratory: Yes: Regular, Other (few scattered rhonchi, poor inspiratory effort ) Gastrointestinal: Yes: Normal Bowel Sounds, Soft. No: Tenderness Labs: CBC, BMP 12/04/16 05:42 12/04/16 05:42 Hospitalist Encounter Assessment: Agitation, acute delirium - given haldol 5mg, no improvement after 40 minutes - attempted to redirect pt, able to calm pt down initially but with continued repeated attempts to get OOB. - wrist restraints applied - ativan 2mg IM given - cont cardiac monitoring, continuous pulse oximetry, oxygen 2LNC to maintain oxygen sat >92
[2016-12-04] MEDS ORDERED: CHLORHEXIDINE GLUCONATE 4% CLEANSER FOR DECOLONIZATION TP SCH (22:00)
[2016-12-05 07:08] LABS: BASOPHIL 0.2 % (0-2.0); EOSINOPHIL 1.9 % (0-4.5); MCH 30.2 pg (25.7-33.7); MCHC 33.7 g/dl (32.0-35.9); MEAN CELL VOLUME 89.6 fl (80-96); MEAN PLT VOLUME 8.6 fl (7.5-11.1); NEUTROPHILS 55.3 % (42.8-82.8); PLATELET COUNT 169 K/MM3 (134-434); RDW 13.8 % (11.9-15.9); WHITE BLOOD COUNT 6.2 K/mm3 (4.0-10.0)
[2016-12-05 07:26] LABS: ALBUMIN 3.6 g/dl (3.4-5.0); MAGNESIUM 2.3 mg/dL (1.8-2.4)
[2016-12-05 07:32] LABS: BILIRUBIN,TOTAL 0.9 mg/dL (0.2-1.0); CREATININE 1.3 mg/dL (0.7-1.3); PHOSPHOROUS 3.2 mg/dL (2.5-4.9); TOT PROT 7.1 g/dl (6.4-8.2)
--- NOTE | 2016-12-05 10:22 | PN ---
Progress Note, Physician Chief Complaint: Remains in sinus rhythm Events noted last night with extreme agitation and confusion and received Ativan - remains confused Still on restrain due to fall risk History of Present Illness: Patient was seen and examined. Confused. Chart was reviewed Patient is on restraint. Spoke with health care proxy who states he wants patient to go home and not to a nursing facility at any means - Current Medication List Current Medications: Active Medications Acetaminophen (Tylenol -) 650 mg PO Q6H PRN PRN Reason: FEVER OR PAIN Albuterol Sulfate (Ventolin 0.083% Nebulizer Soln -) 1 amp NEB Q6H PRN PRN Reason: SHORT OF BREATH/WHEEZING Apixaban (Eliquis -) 2.5 mg PO BID [facility] Last Admin: 12/04/16 22:00 Dose: Not Given Aspirin (Ecotrin -) 81 mg PO DAILY [facility] Last Admin: 12/04/16 17:50 Dose: 81 mg Cholecalciferol (Vitamin D3 -) 2,000 unit PO DAILY [facility] Last Admin: 12/04/16 10:07 Dose: 2,000 unit Haloperidol (Haldol Injection (Fast Acting) -) 5 mg IM Q4H PRN PRN Reason: AGITATION Last Admin: 12/04/16 19:59 Dose: 5 mg Hydrochlorothiazide (Hctz -) 12.5 mg PO DAILY [facility] Last Admin: 12/04/16 17:50 Dose: 12.5 mg Metoprolol Tartrate (Lopressor -) 25 mg PO BID [facility] Last Admin: 12/04/16 22:00 Dose: Not Given Tamsulosin HCl (Flomax -) 0.4 mg PO DAILY@0830 [facility] Last Admin: 12/04/16 10:06 Dose: 0.4 mg Valsartan (Diovan -) 80 mg PO DAILY [facility] Last Admin: 12/04/16 17:51 Dose: 80 mg - Objective Vital Signs: Vital Signs Temperature 97.7 F 12/05/16 06:24 Pulse Rate 69 12/05/16 06:24 Respiratory Rate 18 12/05/16 06:24 Blood Pressure 140/81 12/05/16 06:24 O2 Sat by Pulse Oximetry (%) 93 L 12/04/16 22:00 Neck: Yes: Supple Cardiovascular: Yes: Regular Rate and Rhythm, S1, S2 Respiratory: Yes: Diminished Gastrointestinal: Yes: Normal Bowel Sounds, Soft. No: Tenderness Edema: No Additional Findings/Remarks: - Review of Systems Cardiovascular: denies: Chest Pain, Palpitations, Shortness of Breath Respiratory: denies: Cough, Hemoptysis, Orthopnea, PND, SOB, SOB on Exertion Gastrointestinal: denies: Abdominal Pain, Constipation, Diarrhea, Melena, Nausea , Rectal Bleeding, Vomiting Musculoskeletal: denies: Joint Pain Neurological: (+) Dizziness. (+) Confusion, denies:Headache, Seizure, Syncope ( +) unsteady gait Labs: 12/05/16 06:00 Problem List - Problems (1) Atrial fibrillation Code(s): I48.91 - UNSPECIFIED ATRIAL FIBRILLATION Qualifiers: Atrial fibrillation type: paroxysmal Qualified Code(s): I48.0 - Paroxysmal atrial fibrillation (2) NSTEMI (non-ST elevated myocardial infarction) Code(s): I21.4 - NON-ST ELEVATION (NSTEMI) MYOCARDIAL INFARCTION (3) Orthostatic hypotension Code(s): I95.1 - ORTHOSTATIC HYPOTENSION (4) Demand ischemia Code(s): I24.8 - OTHER FORMS OF ACUTE ISCHEMIC HEART DISEASE (5) HTN (hypertension) Code(s): I10 - ESSENTIAL (PRIMARY) HYPERTENSION Qualifiers: Hypertension type: essential hypertension Qualified Code(s): I10 - Essential (primary) hypertension (6) Confusion Code(s): R41.0 - DISORIENTATION, UNSPECIFIED (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 Paroxysmal atrial fibrillation now in sinus rhythm ([id number] score of 5 or 6) 2. Hypertension 3. History of orthostatic hypotension and dizziness 4. Cerebrovascular disease/TIA 5. 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 Events were noted last night and patient remains to be confused with intermittent agitation and persistent unsteady gait which poses a problem in continuing with anticoagulation. Although risk of stroke is present with elevated [id number] score and PAF, risk of intracranial bleed also exists with unsteady gait and risk of fall. Patient may not be an ideal candidate for penitentiary anticoagulation. Will switch to ASA 81 mg once a day instead of Eliquis 2. Switch Valsartan HCT to Valsartan 3. Metoprolol Tartrate as tolerated 4. Eventually patient will need to be placed at skilled nursing Further plans are to follow. Katty Alfaro MD
[2016-12-05] MEDS: TAMSULOSIN HCL 0.4 MG CAP.ER.24H (FP) PO SCH (10:46)
[2016-12-05] MEDS: VALSARTAN 80 MG TABLET (UD) PO SCH (10:46)
[2016-12-05] MEDS: METOPROLOL TARTRATE 25 MG TABLET (FP) PO SCH ×2 (10:47→21:40)
[2016-12-05] MEDS: CHOLECALCIFEROL (VITAMIN D3) 1,000 UNIT TABLET (FP) PO SCH (10:47)
[2016-12-05] MEDS: APIXABAN 2.5 MG TABLET PO SCH ×2 (10:47→21:40)
[2016-12-05] MEDS: HYDROCHLOROTHIAZIDE 12.5 MG CAPSULE (FP) PO SCH (10:47)
[2016-12-05] MEDS: ASPIRIN COATED 81 MG TABLET.EC PO SCH (10:47)
--- NOTE | 2016-12-05 12:49 | CONSULT ---
Consult Consult Specialty:: Neurology Reason for Consultation:: Altered mental status - History of Present Illness History of Present Illness: 81 year old man with history of hypertension, ?TIA, presented to [facility] ED with vertigo. The patient was found to be orthostatic, in atrial fibrillation , and elevated troponin and elevated creatinine. He was previously in the ICU and currently on the medical floor for management. The patient overnight had an episode of confusion. CT head previously completed shows no acute pathology. Currently, patient awake, eating breakfast. Knows name, month, year, and president. 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 Home Medications - Allergies Allergies/Adverse Reactions: Allergies Allergy/AdvReac Type Severity Reaction Status Date / Time No Known Allergies Allergy Verified 11/30/16 11:03 - Home Medications Home Medications: Ambulatory Orders Cholecalciferol (Vitamin D3) [Vitamin D3] 2,000 unit PO DAILY capsule 06/28/13 Valsartan/Hydrochlorothiazide [Valsartan-Hctz 80-12.5 Mg Tab] 1 each PO DAILY tablet 11/18/16 Aspirin [Aspirin EC] 325 mg PO HS 11/30/16 Propranolol HCl [Propranolol HCl ER] 160 mg PO HS 11/30/16 Tamsulosin HCl [Flomax] 0.8 mg PO HS 11/30/16 Review of Systems - Review of Systems Neurological: reports: Confusion Physical Exam Vital Signs: Vital Signs Temperature 97.5 F L 12/05/16 10:00 Pulse Rate 60 12/05/16 10:00 Respiratory Rate 20 12/05/16 10:00 Blood Pressure 127/80 12/05/16 10:00 O2 Sat by Pulse Oximetry (%) 95 12/05/16 09:00 Constitutional: Yes: No Distress, Calm Eyes: Yes: Conjunctiva Clear, EOM Intact HENT: Yes: Atraumatic, Normocephalic Cardiovascular: Yes: S1, S2 Respiratory: Yes: Regular Neurological: Yes: Alert, Oriented, Cran Nerves II-XII Intact, Other (moving all extremities spontaneously, no obvious focal deficit) Labs: CBC, BMP 12/05/16 06:00 12/05/16 06:00 Assessment/Plan 81 year old man with history of hypertension, ?TIA, presented to [facility] ED with vertigo. The patient was found to be orthostatic, in atrial fibrillation , and elevated troponin and elevated creatinine. He was previously in the ICU and currently on the medical floor for management. The patient overnight had an episode of confusion. CT head previously completed shows no acute pathology. Currently, patient awake, eating breakfast. Knows name, month, year, and president. Delirium, appears to have improved Patient knows month, year, name, age, president Prior CT head negative for acute pathology Recommend infectious workup to rule out UTI or other causes of delirium Continue medical management Please call if further questions
--- NOTE | 2016-12-05 15:39 | PN ---
Physical Exam: SUBJECTIVE: Patient seen and examined. Oriented x 3 but states people were trying to kidnap him last night. OBJECTIVE: Vital Signs Period Temp Pulse Resp BP Sys/Saleh Pulse Ox Last 24 Hr 97.5 F-99.5 F 0-88 0-20 0-143/0-81 93-95 GENERAL: The patient is awake, slightly drowsy, easily arousable. A&Ox3. HEAD: Normal with no signs of trauma. EYES: PERRL, extraocular movements intact, sclera anicteric, conjunctiva clear. No ptosis. LUNGS: LLL crackles. HEART: Regular rate and rhythm, S1, S2 without murmur, rub or gallop. ABDOMEN: Soft, nontender, nondistended, normoactive bowel sounds, no guarding, no rebound, no hepatosplenomegaly, no masses. EXTREMITIES: 2+ pulses, warm, well-perfused, no edema. NEUROLOGICAL: Cranial nerves II through XII grossly intact. Normal speech, gait not observed. Laboratory Results - last 24 hr 12/05/16 12/05/16 12/05/16 06:00 06:00 06:00 WBC Cancelled 6.2 Corrected WBC (auto) Cancelled RBC Cancelled 4.48 Hgb Cancelled 13.5 Hct Cancelled 40.1 MCV Cancelled 89.6 MCHC Cancelled 33.7 RDW Cancelled 13.8 Plt Count Cancelled 169 MPV Cancelled 8.6 Add Manual Diff Cancelled Neutrophils % 55.3 Lymphocytes % 33.4 Monocytes % 9.2 Eosinophils % 1.9 Basophils % 0.2 Differential Comment Cancelled Platelet Estimate Cancelled Platelet Comment Cancelled Normal RBC Morphology Cancelled RBC Morphology Cancelled PTT (Actin FS) 24.4 L Sodium Potassium Chloride Carbon Dioxide Anion Gap BUN Creatinine Creat Clearance w eGFR Random Glucose Calcium Phosphorus Magnesium Total Bilirubin AST ALT Alkaline Phosphatase Total Protein Albumin 12/05/16 06:00 WBC Corrected WBC (auto) RBC Hgb Hct MCV MCHC RDW Plt Count MPV Add Manual Diff Neutrophils % Lymphocytes % Monocytes % Eosinophils % Basophils % Differential Comment Platelet Estimate Platelet Comment Normal RBC Morphology RBC Morphology PTT (Actin FS) Sodium 145 Potassium 3.9 Chloride 106 Carbon Dioxide 31 Anion Gap 8 BUN 36 H Creatinine 1.3 Creat Clearance w eGFR 52.72 Random Glucose 84 Calcium 9.0 Phosphorus 3.2 D Magnesium 2.3 Total Bilirubin 0.9 AST 62 H D ALT 43 D Alkaline Phosphatase 68 Total Protein 7.1 Albumin 3.6 Active Medications Generic Name Dose Route Start Last Admin Trade Name Freq PRN Reason Stop Dose Admin Acetaminophen 650 mg 12/03/16 23:12 Tylenol - PO Q6H PRN FEVER OR PAIN Albuterol Sulfate 1 amp 12/03/16 23:12 Ventolin 0.083% Nebulizer Soln - NEB Q6H PRN SHORT OF BREATH/WHEEZING Apixaban 2.5 mg 12/04/16 10:00 12/05/16 10:47 Eliquis - PO 2.5 mg BID [facility] Administration Aspirin 81 mg 12/04/16 17:15 12/05/16 10:47 Ecotrin - PO 81 mg DAILY [facility] Administration Cholecalciferol 2,000 unit 12/04/16 10:00 12/05/16 10:47 Vitamin D3 - PO 2,000 unit DAILY [facility] Administration Haloperidol 5 mg 12/03/16 23:12 12/04/16 19:59 Haldol Injection (Fast Acting) - IM 5 mg Q4H PRN Administration AGITATION Hydrochlorothiazide 12.5 mg 12/04/16 17:00 12/05/16 10:47 Hctz - PO 12.5 mg DAILY [facility] Administration Metoprolol Tartrate 25 mg 12/04/16 10:00 12/05/16 10:47 Lopressor - PO 25 mg BID [facility] Administration Tamsulosin HCl 0.4 mg 12/04/16 08:30 12/05/16 10:46 Flomax - PO 0.4 mg DAILY@0830 [facility] Administration Valsartan 80 mg 12/04/16 17:00 12/05/16 10:46 Diovan - PO 80 mg DAILY [facility] Administration Imaging 11/30 ECG: atrial fibrillation/flutter with ventricular rate 84, left axis deviation, RBBB previously noted on prior EKG of 11/16, T wave inversions V1, V2 , V3; T wave inversions in V2 and V3 not seen on previous ECG 01/04/1611/30 Echo: LV normal; RV normal; mild MR; moderate TR; mild pHTN; mild PI ASSESSMENT/PLAN 81 year-old male with a PMH of HTN, possible cerebrovascular disease/TIA, and BPH. Admitted with new onset afib and NSTEMI. Paroxysmal atrial fibrillation, newly diagnosed --remains in sinus rhythm in 60s --[id number] score of 5 or 6; continue Eliquis --need to decide on long-term anti-coagulation; will discuss with cardiology Delirium --several nighttime episodes of extreme agitation requiring chemical and physical restraints --seen and evaluated by neuro, nonfocal, benign neuro exam --electrolytes are wnl, cultures are all negative --this is most likely delirium which started in ICU; ICU CAM score positive --QTC intervan <450, will order seroquel 25mg nightly Hypertension --BP well-controlled --continue metoprolol NSTEMI v. demand ischemia --serial troponins 0.94--0.78-->0.62 --ASA, beta paolo, Eliquis Diastolic heart failure, chronic --restarted home valsartan/HCTZ yesterday, Cr stable AMI, resolved --Cr baseline Fever --T100.6 on admission, afebrile continuously since --no leukocytosis --continue to observe off antibiotics BPH --continue Flomax Cerebrovascular disease/TIA --resume low-dose ASA F/E/N Fluids: PO intake adequate Electrolytes: replete as indicated Nutrition: cholesterol/fat controlled/low sodium DVT prophylaxis: Eliquis, oob, ambulation PT evaluation Daily PT Dispo: continues to require inpatient care. Full code. Visit type - Emergency Visit Emergency Visit: Yes ED Registration Date: 11/30/16 Care time: The patient presented to the Emergency Department on the above date and was hospitalized for further evaluation of their emergent condition. - New Patient This patient is new to me today: No - Critical Care Critical Care patient: No
[2016-12-05] MEDS ORDERED: QUEtiapine FUMARATE 25 MG TABLET (FP) PO SCH (18:00)
[2016-12-05 18:15] LABS: URINE APPEARANCE CLEAR; URINE BILIRUBIN NEGATIVE (NEGATIVE); URINE BLOOD NEGATIVE (NEGATIVE); URINE COLOR YELLOW; URINE GLUCOSE (UA) NEGATIVE (NEGATIVE); URINE KETONE NEGATIVE (NEGATIVE); URINE LEUK ESTERASE NEGATIVE (NEGATIVE); URINE NITRITE NEGATIVE (NEGATIVE); URINE PROTEIN NEGATIVE (NEGATIVE); URINE UROBILINOGEN 4.0 E.U/dl E.U./dl (0.2-1.0)
[2016-12-06 06:52] LABS: MCH 29.9 pg (25.7-33.7); MCHC 33.5 g/dl (32.0-35.9); MEAN CELL VOLUME 89.2 fl (80-96); MEAN PLT VOLUME 8.3 fl (7.5-11.1); PLATELET COUNT 170 K/MM3 (134-434); RDW 13.6 % (11.9-15.9); WHITE BLOOD COUNT 7.7 K/mm3 (4.0-10.0)
--- NOTE | 2016-12-06 08:09 | PN ---
Progress Note, Physician Chief Complaint: Remains in sinus rhythm Calmer now and uneventful night - received Seroquel yesterday Still on restrain due to fall risk History of Present Illness: Patient was seen and examined. Confused. Chart was reviewed Patient is on restraint. - Current Medication List Current Medications: Active Medications Acetaminophen (Tylenol -) 650 mg PO Q6H PRN PRN Reason: FEVER OR PAIN Albuterol Sulfate (Ventolin 0.083% Nebulizer Soln -) 1 amp NEB Q6H PRN PRN Reason: SHORT OF BREATH/WHEEZING Aspirin (Ecotrin -) 81 mg PO DAILY [facility] Last Admin: 12/05/16 10:47 Dose: 81 mg Cholecalciferol (Vitamin D3 -) 2,000 unit PO DAILY [facility] Last Admin: 12/05/16 10:47 Dose: 2,000 unit Hydrochlorothiazide (Hctz -) 12.5 mg PO DAILY [facility] Last Admin: 12/05/16 10:47 Dose: 12.5 mg Metoprolol Tartrate (Lopressor -) 25 mg PO BID [facility] Last Admin: 12/05/16 21:40 Dose: 25 mg Quetiapine Fumarate (Seroquel -) 25 mg PO DAILY@1800 [facility] Last Admin: 12/05/16 17:23 Dose: 25 mg Tamsulosin HCl (Flomax -) 0.4 mg PO DAILY@0830 [facility] Last Admin: 12/05/16 10:46 Dose: 0.4 mg Valsartan (Diovan -) 80 mg PO DAILY [facility] Last Admin: 12/05/16 10:46 Dose: 80 mg - Objective Vital Signs: Vital Signs Temperature 97.5 F L 12/06/16 06:00 Pulse Rate 62 12/06/16 06:00 Respiratory Rate 18 12/06/16 06:00 Blood Pressure 126/74 12/06/16 06:00 O2 Sat by Pulse Oximetry (%) 93 L 12/05/16 22:00 Neck: Yes: Supple Cardiovascular: Yes: Regular Rate and Rhythm, S1, S2 Respiratory: Yes: Diminished Gastrointestinal: Yes: Normal Bowel Sounds, Soft. No: Tenderness Edema: No Additional Findings/Remarks: - Review of Systems Cardiovascular: denies: Chest Pain, Palpitations, Shortness of Breath Respiratory: denies: Cough, Hemoptysis, Orthopnea, PND, SOB, SOB on Exertion Gastrointestinal: denies: Abdominal Pain, Constipation, Diarrhea, Melena, Nausea , Rectal Bleeding, Vomiting Musculoskeletal: denies: Joint Pain Neurological: (+) Dizziness. (+) Confusion, denies:Headache, Seizure, Syncope Labs: CBC, BMP 12/06/16 05:35 12/05/16 06:00 Problem List - Problems (1) Atrial fibrillation Code(s): I48.91 - UNSPECIFIED ATRIAL FIBRILLATION Qualifiers: Atrial fibrillation type: paroxysmal Qualified Code(s): I48.0 - Paroxysmal atrial fibrillation (2) NSTEMI (non-ST elevated myocardial infarction) Code(s): I21.4 - NON-ST ELEVATION (NSTEMI) MYOCARDIAL INFARCTION (3) Orthostatic hypotension Code(s): I95.1 - ORTHOSTATIC HYPOTENSION (4) Demand ischemia Code(s): I24.8 - OTHER FORMS OF ACUTE ISCHEMIC HEART DISEASE (5) HTN (hypertension) Code(s): I10 - ESSENTIAL (PRIMARY) HYPERTENSION Qualifiers: Hypertension type: essential hypertension Qualified Code(s): I10 - Essential (primary) hypertension (6) Confusion Code(s): R41.0 - DISORIENTATION, UNSPECIFIED (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 Paroxysmal atrial fibrillation now in sinus rhythm ([id number] score of 5 or 6) 2. Hypertension 3. History of orthostatic hypotension and dizziness 4. Cerebrovascular disease/TIA 5. 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 Eliquis has been stopped in view of confusion and risk of fall. ASA is to be continued. Risk of stroke without A/C and risk of bleeding and fall with A/C has been explained to the healthcare proxy 2. Switch Valsartan HCT to Valsartan 3. Metoprolol Tartrate as tolerated 4. [facility] Further plans are to follow. Katty Alfaro MD
[2016-12-06] MEDS: CHOLECALCIFEROL (VITAMIN D3) 1,000 UNIT TABLET (FP) PO SCH (10:01)
[2016-12-06] MEDS: TAMSULOSIN HCL 0.4 MG CAP.ER.24H (FP) PO SCH (10:01)
[2016-12-06] MEDS: ASPIRIN COATED 81 MG TABLET.EC PO SCH (10:01)
[2016-12-06] MEDS: METOPROLOL TARTRATE 25 MG TABLET (FP) PO SCH (10:01)
[2016-12-06] MEDS: VALSARTAN 80 MG TABLET (UD) PO SCH (10:01)
[2016-12-06 11:36] VITALS: PULSE 65
--- NOTE | 2016-12-06 14:04 | DS ---
Physical Exam: SUBJECTIVE: Patient seen and examined OBJECTIVE: Vital Signs Period Temp Pulse Resp BP Sys/Saleh Pulse Ox Last 24 Hr 97.4 F-98.4 F 62-88 16-20 94-131/52-87 93-96 PHYSICAL EXAM GENERAL: The patient is awake, alert, and fully oriented, in no acute distress. HEAD: Normal with no signs of trauma. EYES: PERRL, extraocular movements intact, sclera anicteric, conjunctiva clear. ENT: Ears normal, nares patent, oropharynx clear without exudates, moist mucous membranes. NECK: Trachea midline, full range of motion, supple. LUNGS: Breath sounds equal, clear to auscultation bilaterally, no wheezes, no crackles, no accessory muscle use. HEART: Regular rate and rhythm, S1, S2 without murmur, rub or gallop. ABDOMEN: Soft, nontender, nondistended, normoactive bowel sounds, no guarding, no rebound, no hepatosplenomegaly, no masses. EXTREMITIES: 2+ pulses, warm, well-perfused, no edema. NEUROLOGICAL: Cranial nerves II through XII grossly intact. Normal speech, gait not observed. PSYCH: Normal mood, normal affect. SKIN: Warm, dry, normal turgor, no rashes or lesions noted. LABS Laboratory Results - last 24 hr 12/05/16 12/06/16 12/06/16 17:00 05:35 05:35 WBC 7.7 RBC 4.22 Hgb 12.6 Hct 37.7 MCV 89.2 MCHC 33.5 RDW 13.6 Plt Count 170 MPV 8.3 PTT (Actin FS) 25.8 L Urine Color Yellow Urine Appearance Clear Urine pH 6.0 Ur Specific [place] 1.019 Urine Protein Negative Urine Glucose (UA) Negative Urine Ketones Negative Urine Blood Negative Urine Nitrite Negative Urine Bilirubin Negative Urine Urobilinogen 4.0 e.u/dl Ur Leukocyte Esterase Negative HOSPITAL COURSE Date of Admission:11/30/16 Date of Discharge: 12/06/16 Imaging 11/30 ECG: atrial fibrillation/flutter with ventricular rate 84, left axis deviation, RBBB previously noted on prior EKG of 11/16, T wave inversions V1, V2 , V3; T wave inversions in V2 and V3 not seen on previous ECG 01/04/1611/30 Echo: LV normal; RV normal; mild MR; moderate TR; mild pHTN; mild PI ASSESSMENT/PLAN 81 year-old male with a PMH of HTN, possible cerebrovascular disease/TIA, and BPH. Admitted with new onset afib and NSTEMI. Paroxysmal atrial fibrillation, newly diagnosed --sinus rhythm in 60s --[id number] score of 5 or 6; Eliquis was started but then stopped in view of confusion and risk of fall; ASA only, patient and HCP agreed Delirium --several nighttime episodes of extreme agitation requiring chemical and physical restraints --seen and evaluated by neuro, nonfocal, benign neuro exam --electrolytes are wnl, cultures are all negative --this is most likely delirium which started in ICU; ICU CAM score positive --QTC interval <450, will order seroquel 25mg nightly Hypertension --BP well-controlled --continue metoprolol NSTEMI v. demand ischemia --serial troponins 0.94--0.78-->0.62 --ASA, beta paolo, Eliquis Diastolic heart failure, chronic --restarted home valsartan/HCTZ yesterday, Cr stable AMI, resolved --Cr baseline Fever --T100.6 on admission, afebrile continuously since --no leukocytosis --observed off antibiotics BPH --continued Flomax Cerebrovascular disease/TIA --resumed low-dose ASA Minutes to complete discharge: 35 Discharge Summary Reason For Visit: ATRIAL FIBRILLATION, ORTHOSTATIC HYPOTENSION Current Active Problems Atrial fibrillation (Acute) Confusion (Acute) Demand ischemia (Acute) HTN (hypertension) (Acute) NSTEMI (non-ST elevated myocardial infarction) (Acute) Organic brain syndrome (Acute) Orthostatic hypotension (Acute) Condition: Improved - Instructions Referrals: Yariel Lew MD [Primary Care Provider] - Disposition: HALFWAY FACILITY - Home Medications Comprehensive Discharge Medication List: Ambulatory Orders Cholecalciferol (Vitamin D3) [Vitamin D3] 2,000 unit PO DAILY capsule 06/28/13 Tamsulosin HCl [Flomax] 0.8 mg PO HS 11/30/16 Aspirin Coated [Ecotrin -] 81 mg PO DAILY #30 mg 12/06/16 Metoprolol Tartrate [Lopressor -] 25 mg PO BID tablet 12/06/16 Quetiapine Fumarate [Seroquel -] 25 mg PO DAILY@1800 tablet 12/06/16 Tamsulosin HCl [Flomax -] 0.4 mg PO DAILY@0830 #30 mg 12/06/16 Valsartan [Diovan] 80 mg PO DAILY tablet 12/06/16 This patient is new to me today: No Emergency Visit: Yes ED Registration Date: 11/30/16 Care time: The patient presented to the Emergency Department on the above date and was hospitalized for further evaluation of their emergent condition. Critical Care patient: No - Discharge Referral [facility] Med P.[facility] No
[2016-12-06 14:59] VITALS: BP 80/48; TEMP 98.1
== END 2016-12-06 17:35 | DRG 281 ==
LOC: SUPCPDRO 09:38 → FER 09:38 → JICU 14:02 → J4S 12-03 23:12
PROVIDERS: ADMIT Internal Medicine; ATTEND Nurse Practitioner Acute Care
DX: I21.4 Non-ST elevation (NSTEMI) myocardial infarction (principal); I48.92 Unspecified atrial flutter; N17.9 Acute kidney failure, unspecified; E87.0 Hyperosmolality and hypernatremia; I48.0 Paroxysmal atrial fibrillation; I10 Essential (primary) hypertension; I24.8 Other forms of acute ischemic heart disease; I95.1 Orthostatic hypotension; N40.0 Benign prostatic hyperplasia without lower urinary tract symptoms; R50.9 Fever, unspecified; I45.19 Other right bundle-branch block; E87.6 Hypokalemia; R41.0 Disorientation, unspecified; T37.8X5A Adverse effect of other specified systemic anti-infectives and antiparasitics, initial encounter; Z86.73 Personal history of transient ischemic attack (TIA), and cerebral infarction without residual deficits; R45.1 Restlessness and agitation; F09 Unspecified mental disorder due to known physiological condition
CPT/HCPCS: 36415; 70450-TC; 71010-TC; 80048; 80053; 80061; 81003; 81015; 82140; 82550; 82553; 83605; 83721; 83735; 83880; 84100; 84443; 84484; 85025; 85027; 85610; 85730; 87040; 87086; 87254; 87804; 93005; 93010; 93306-TC; 94640; 94761; 97116-GP; 97161-GP; 99285-25; J1644

== ENCOUNTER 2021-01-27 09:37 | Emergency (ER) | payer OTHER, BC ==
[2021-01-27 09:47] VITALS: BP 112/68; PULSE 81; TEMP 98; BMI 25.8
[2021-01-27 11:22] LABS: HEMATOCRIT 63.3 % (35.4-49); HEMOGLOBIN 11.7 GM/dl (11.7-16.9); RBC 3.98 M/mm3 (4.00-5.60); WHITE BLOOD COUNT 4.7 K/mm3 (4.0-10.8)
[2021-01-27 11:23] LABS: BASO % 1.7 % (0-2.0); EOS % 2.8 % (0-4.5); LYMPH % 22.3 % (8-40); MCH 29.5 pg (25.7-33.7); MCHC 32.3 g/dl (32.0-35.9); MEAN CELL VOLUME 91.1 fl (80-96); MEAN PLT VOLUME 8.8 fl (7.5-11.1); MONO % 11.6 % (3.8-10.2); NEUT % 61.6 % (42.8-82.8); PLATELET COUNT 142 K/MM3 (134-434); RDW 12.7 % (11.9-15.9)
[2021-01-27 11:43] LABS: ALBUMIN 3.6 g/dl (3.4-5.0); BILIRUBIN,TOTAL 1.1 mg/dl (0.2-1); CALCIUM 9.2 mg/dl (8.5-10); CREATININE 1.7 mg/dl (0.55-1.3); INR 1.14 (0.82-1.09); MAGNESIUM 1.9 mg/dL (1.8-2.4); PROTHROMBIN TIME (PATIENT) 12.7 SEC (10.2-13.0); TOT PROT 6.5 g/dl (6.4-8.2)
== END 2021-01-27 14:05 | disposition home or self-care (01) ==
LOC: FER 09:37
DX: N18.9 Chronic kidney disease, unspecified (principal)
CPT/HCPCS: 36415; 71045-TC-FY; 72170-TC-FY; 72192-TC; 80053; 82550; 82553; 83735; 84484; 85025; 85610; 85730; 86850; 86900; 86901; 93005; 99285-25

== ENCOUNTER 2021-03-07 19:38 | Observation (INO) | payer OTHER, BC ==
[2021-03-07 21:05] LABS: BASO % 1.9 % (0-2.0); EOS % 1.5 % (0-4.5); HEMATOCRIT 35.7 % (35.4-49); HEMOGLOBIN 11.8 GM/dl (11.7-16.9); LYMPH % 15.9 % (8-40); MCH 30.4 pg (25.7-33.7); MEAN CELL VOLUME 92.1 fl (80-96); MEAN PLT VOLUME 8.2 fl (7.5-11.1); MONO % 7.2 % (3.8-10.2); NEUT % 73.5 % (42.8-82.8); PLATELET COUNT 160 10^3/uL (134-434); RBC 3.88 M/mm3 (4.00-5.60); RDW 13.5 % (11.9-15.9); WHITE BLOOD COUNT 5.8 K/mm3 (4.0-10.8)
[2021-03-07 21:19] LABS: ALBUMIN 3.7 g/dl (3.4-5.0); ALK PHOS 55 U/L (45-117); ANION GAP 6 MMOL/L (8-16); BILIRUBIN,TOTAL 0.8 mg/dl (0.2-1); CALCIUM 8.8 mg/dl (8.5-10); CHLORIDE 113 mmol/L (98-107); CO2 23 mmol/L (21-32); CREATININE 1.5 mg/dl (0.55-1.3); GLUCOSE,RANDOM 105 mg/dl (74-106); SGOT/AST 14 U/L (15-37); SGPT/ALT 14 U/L (13-61); SODIUM 142 mmol/L (136-145); TOT PROT 6.7 g/dl (6.4-8.2)
[2021-03-08] MEDS ORDERED: SODIUM CHLORIDE 1,000 ML IV STA (00:19)
[2021-03-08 04:09] VITALS: BMI 23.9
[2021-03-08] MEDS: METOPROLOL TARTRATE 50 MG TABLET (FP) PO SCH ×2 (12:46→21:33)
[2021-03-08] MEDS: HEPARIN NA (PORCINE) 5,000 UNITS/ML 1ML VIAL SQ SCH ×2 (14:28→21:33)
[2021-03-08] MEDS ORDERED: ATORVASTATIN CA 10 MG TABLET (FP) PO SCH (22:00)
[2021-03-09] MEDS: HEPARIN NA (PORCINE) 5,000 UNITS/ML 1ML VIAL SQ SCH (06:39)
[2021-03-09 08:02] LABS: HEMATOCRIT 36.3 % (35.4-49); HEMOGLOBIN 11.8 GM/dl (11.7-16.9); MCH 29.9 pg (25.7-33.7); MCHC 32.7 g/dl (32.0-35.9); MEAN CELL VOLUME 91.5 fl (80-96); MEAN PLT VOLUME 8.2 fl (7.5-11.1); PLATELET COUNT 159 10^3/uL (134-434); RBC 3.96 M/mm3 (4.00-5.60); RDW 13.5 % (11.9-15.9); WHITE BLOOD COUNT 4.5 K/mm3 (4.0-10.8)
[2021-03-09 08:09] LABS: CALCIUM 8.6 mg/dl (8.5-10); CREATININE 1.2 mg/dl (0.55-1.3)
[2021-03-09 09:56] VITALS: BP 137/79; PULSE 64; TEMP 97.7
[2021-03-09] MEDS: METOPROLOL TARTRATE 50 MG TABLET (FP) PO SCH (09:57)
== END 2021-03-09 13:03 | disposition home or self-care (01) ==
LOC: FER 19:38 → FM/S 03-08 02:46
PROVIDERS: ADMIT Hospitalist; ATTEND Nurse Practitioner Acute Care
PROC: 3E023GC Introduction of Other Therapeutic Substance into Muscle, Percutaneous Approach (ICD-10-PCS; principal; 2021-03-08)
PROC: 3E0337Z Introduction of Electrolytic and Water Balance Substance into Peripheral Vein, Percutaneous Approach (ICD-10-PCS; 2021-03-08)
DX: I13.10 Hypertensive heart and chronic kidney disease without heart failure, with stage 1 through stage 4 chronic kidney disease, or unspecified chronic kidney disease (principal); R26.89 Other abnormalities of gait and mobility; E78.5 Hyperlipidemia, unspecified; I25.10 Atherosclerotic heart disease of native coronary artery without angina pectoris; I48.0 Paroxysmal atrial fibrillation; Z86.73 Personal history of transient ischemic attack (TIA), and cerebral infarction without residual deficits; I95.1 Orthostatic hypotension; N40.0 Benign prostatic hyperplasia without lower urinary tract symptoms; Z91.81 History of falling; Z87.891 Personal history of nicotine dependence; I25.2 Old myocardial infarction; N18.9 Chronic kidney disease, unspecified
CPT/HCPCS: 36415; 70450-TC; 71045-TC-FY; 80048; 80053; 81003; 81015; 82550; 83735; 84443; 84484; 85025; 85027; 93005; 96360; 96372; 97116-GP; 97161-GP; 99285-25; C9803; G0378; J1644; U0003; U0005

== ENCOUNTER 2021-06-19 14:10 | Inpatient (IN) | payer OTHER, BC ==
[2021-06-19] MEDS ORDERED: LACTATED RINGERS SOLUTION 1000 ML INFUS.BAG IV ONE (15:04)
[2021-06-19] MEDS ORDERED: ACETAMINOPHEN 1000 MG/100 ML VIAL IVPB ONE (15:04)
[2021-06-19] MEDS ORDERED: ACETAMINOPHEN INJECTION 100 ML IVPB ONE (15:30)
[2021-06-19 16:24] LABS: BASO % 0.9 % (0-2.0); EOS % 0.9 % (0-4.5); HEMATOCRIT 40.4 % (35.4-49); HEMOGLOBIN 13.1 GM/dl (11.7-16.9); LYMPH % 11.7 % (8-40); MCH 29.1 pg (25.7-33.7); MCHC 32.6 g/dl (32.0-35.9); MEAN CELL VOLUME 89.3 fl (80-96); MEAN PLT VOLUME 8.7 fl (7.5-11.1); MONO % 13.7 % (3.8-10.2); NEUT % 72.8 % (42.8-82.8); PLATELET COUNT 138 10^3/uL (134-434); RBC 4.52 M/mm3 (4.00-5.60); RDW 12.5 % (11.9-15.9); WHITE BLOOD COUNT 4.1 K/mm3 (4.0-10.8)
[2021-06-19 16:31] LABS: ACTIVATED PTT 23.1 SECONDS (25.2-36.5)
[2021-06-19 16:34] LABS: ALBUMIN 3.7 g/dl (3.4-5.0); ALK PHOS 67 U/L (45-117); ANION GAP 10 MMOL/L (8-16); BILIRUBIN,TOTAL 1.3 mg/dl (0.2-1); CHLORIDE 104 mmol/L (98-107); CO2 25 mmol/L (21-32); CREATININE 1.3 mg/dl (0.55-1.3); GLUCOSE,RANDOM 94 mg/dl (74-106); SGOT/AST 20 U/L (15-37); SGPT/ALT 15 U/L (13-61); SODIUM 139 mmol/L (136-145)
[2021-06-19 16:35] LABS: INR 1.17 (0.82-1.09); PROTHROMBIN TIME (PATIENT) 13.1 SEC (10.2-13.0)
[2021-06-19 23:38] VITALS: BMI 23.8
[2021-06-19] MEDS ORDERED: SODIUM CHLORIDE 1,000 ML IV SCH (23:45)
[2021-06-20] MEDS: ENOXAPARIN NA (PORCINE) 40 MG/0.4 ML DISP.SYRIN SQ SCH (00:22)
[2021-06-20] MEDS ORDERED: VANCOMYCIN 1 GM in D5W (PRE-DOCKED) 1,000 MG/250 ML IVPB ONE (00:35)
[2021-06-20 07:27] LABS: HEMATOCRIT 39.5 % (35.4-49); MCH 29.2 pg (25.7-33.7); MCHC 32.9 g/dl (32.0-35.9); MEAN CELL VOLUME 88.8 fl (80-96); PLATELET COUNT 124 10^3/uL (134-434); RBC 4.45 M/mm3 (4.00-5.60); RDW 12.4 % (11.9-15.9); WHITE BLOOD COUNT 3.4 K/mm3 (4.0-10.8)
[2021-06-20 07:41] LABS: CALCIUM 8.5 mg/dl (8.5-10); CREATININE 1.1 mg/dl (0.55-1.3); MAGNESIUM 1.9 mg/dL (1.8-2.4); PHOSPHOROUS 2.9 mg/dl (2.5-4.9)
[2021-06-20] MEDS ORDERED: ALBUTEROL SO4 2.5/IPRATROPIUM 0.5 INH SOL 3 ML VIAL.NEB. NEB ONE (08:19)
[2021-06-20] MEDS: ALBUTEROL SO4 2.5/IPRATROPIUM 0.5 INH SOL 3 ML VIAL.NEB. NEB SCH ×5 (08:30→20:04)
[2021-06-20] MEDS ORDERED: guaiFENesin 200 MG/10 ML 10 ML UNIT-DOSE CUPS PO ONE (08:34)
[2021-06-20] MEDS ORDERED: METOPROLOL TARTRATE 5 MG/5 ML VIAL IVPUSH ONE ×2 (08:36→14:15)
[2021-06-20] MEDS: ASPIRIN 81 MG CHEWABLE TABLETS PO SCH (09:45)
[2021-06-20] MEDS ORDERED: PIPERACILLIN/TAZOBACTAM 3.375 GM VIAL IVPB ONE (09:53)
[2021-06-20] MEDS ORDERED: DEXTROSE 5%-WATER - 50 ML IVPB ONE ×2 (09:53→12:07)
[2021-06-20] MEDS ORDERED: PIPERACILLIN/TAZOB 3.375 GM 3.375 GM in DEXTROSE 5%-WATER - 50 ML IVPB SCH (10:00)
[2021-06-20] MEDS ORDERED: methylPREDNISolone NA SUCC 125 MG/2 ML VIAL IVPUSH ONE (10:00)
[2021-06-20 11:04] LABS: ARTERIAL BLD GAS O2 SATURATION 97.6 % (95-98); ARTERIAL BLOOD GAS BASE EXCESS -1.1 mmol/L (-2-2); ARTERIAL BLOOD GAS PO2 98.3 mmHg (80-100); ARTERIAL BLOOD GAS pH 7.417 (7.350-7.450)
[2021-06-20 11:05] LABS: ALLENS TEST POSITIVE
[2021-06-20 11:06] LABS: VENT MODE ST; VENT RATE 12
[2021-06-20] MEDS ORDERED: cefTRIAXone SODIUM 1 GM VIAL ONE (12:06)
[2021-06-20] MEDS ORDERED: ACETAMINOPHEN 1000 MG/100 ML VIAL IVPB PRN (12:31)
[2021-06-20] MEDS: CEFTRIAXONE 1 GM in DEXTROSE 5%-WATER - 50 ML IVPB SCH (12:34)
[2021-06-20] MEDS: ATORVASTATIN CA 10 MG TABLET (FP) PO SCH (21:10)
[2021-06-21 08:18] LABS: ALBUMIN 3.5 g/dl (3.4-5.0); BILIRUBIN,TOTAL 1.4 mg/dl (0.2-1); CREATININE 1.4 mg/dl (0.55-1.3); MAGNESIUM 1.9 mg/dL (1.8-2.4); TOT PROT 7.1 g/dl (6.4-8.2)
[2021-06-21 08:24] LABS: BASO % 1.4 % (0-2.0); EOS % 0.2 % (0-4.5); HEMOGLOBIN 14.6 GM/dl (11.7-16.9); LYMPH % 15.8 % (8-40); MCH 29.6 pg (25.7-33.7); MCHC 33.3 g/dl (32.0-35.9); MEAN PLT VOLUME 8.6 fl (7.5-11.1); MONO % 13.7 % (3.8-10.2); NEUT % 68.9 % (42.8-82.8); PLATELET COUNT 160 10^3/uL (134-434); RBC 4.95 M/mm3 (4.00-5.60); RDW 12.6 % (11.9-15.9); WHITE BLOOD COUNT 6.2 K/mm3 (4.0-10.8)
[2021-06-21] MEDS ORDERED: DEXTROSE 5%-WATER - 50 ML IVPB ONE (09:26)
[2021-06-21] MEDS ORDERED: cefTRIAXone SODIUM 1 GM VIAL ONE (09:26)
[2021-06-21] MEDS: ENOXAPARIN NA (PORCINE) 40 MG/0.4 ML DISP.SYRIN SQ SCH (09:41)
[2021-06-21] MEDS: CEFTRIAXONE 1 GM in DEXTROSE 5%-WATER - 50 ML IVPB SCH (09:41)
[2021-06-21] MEDS: ALBUTEROL SO4 2.5/IPRATROPIUM 0.5 INH SOL 3 ML VIAL.NEB. NEB SCH ×4 (09:43→21:27)
[2021-06-21] MEDS: ASPIRIN 81 MG CHEWABLE TABLETS PO SCH (09:44)
[2021-06-21] MEDS ORDERED: PIPERACILLIN/TAZOB 3.375 GM 3.375 GM in DEXTROSE 5%-WATER - 50 ML IVPB SCH (11:00)
[2021-06-21] MEDS ORDERED: POTASSIUM CHLORIDE TABS 20 MEQ TABLET.ER (FP) PO ONE (11:45)
[2021-06-21] MEDS: ATORVASTATIN CA 10 MG TABLET (FP) PO SCH (21:27)
[2021-06-22] MEDS ORDERED: cefTRIAXone SODIUM 1 GM VIAL ONE ×2 (07:36→09:24)
[2021-06-22] MEDS ORDERED: DEXTROSE 5%-WATER - 50 ML IVPB ONE ×2 (07:36→09:24)
[2021-06-22] MEDS: ALBUTEROL SO4 2.5/IPRATROPIUM 0.5 INH SOL 3 ML VIAL.NEB. NEB SCH ×2 (08:00→12:03)
[2021-06-22 08:45] VITALS: BP 139/72; PULSE 68; TEMP 98.5
[2021-06-22] MEDS: CEFTRIAXONE 1 GM in DEXTROSE 5%-WATER - 50 ML IVPB SCH (09:25)
[2021-06-22] MEDS: ENOXAPARIN NA (PORCINE) 40 MG/0.4 ML DISP.SYRIN SQ SCH (09:29)
[2021-06-22] MEDS: ASPIRIN 81 MG CHEWABLE TABLETS PO SCH (10:46)
== END 2021-06-22 13:20 | DRG 884 ==
LOC: FER 14:10 → FM/S 22:20
PROVIDERS: ADMIT Internal Medicine; ATTEND Nurse Practitioner Acute Care
DX: F03.90 Unspecified dementia, unspecified severity, without behavioral disturbance, psychotic disturbance, mood disturbance, and anxiety (principal); J96.01 Acute respiratory failure with hypoxia; G92.9 Unspecified toxic encephalopathy; N39.0 Urinary tract infection, site not specified; E78.5 Hyperlipidemia, unspecified; R62.7 Adult failure to thrive; I12.9 Hypertensive chronic kidney disease with stage 1 through stage 4 chronic kidney disease, or unspecified chronic kidney disease; I25.10 Atherosclerotic heart disease of native coronary artery without angina pectoris; J32.9 Chronic sinusitis, unspecified; I11.9 Hypertensive heart disease without heart failure; I48.0 Paroxysmal atrial fibrillation; I08.1 Rheumatic disorders of both mitral and tricuspid valves; N40.0 Benign prostatic hyperplasia without lower urinary tract symptoms; R05.9 Cough, unspecified; N18.9 Chronic kidney disease, unspecified; J43.2 Centrilobular emphysema; M62.81 Muscle weakness (generalized); R26.81 Unsteadiness on feet; R29.6 Repeated falls; E87.6 Hypokalemia; J43.9 Emphysema, unspecified
CPT/HCPCS: 36415; 36600; 70450-TC; 71045-TC-FY; 71250-TC; 74176-TC; 80048; 80053; 81003; 81015; 82550; 82803; 83036; 83605; 83735; 84100; 84443; 84484; 85025; 85027; 85610; 85730; 86850; 86900; 86901; 87040; 87086; 87804; 93005; 94640; 94660; 97116-GP; 97162-GP; 99285-25; C9803; J0131; U0003; U0005

== ENCOUNTER 2021-06-22 15:18 | Inpatient (IN) | payer OTHER, BC ==
[2021-06-22 15:35] VITALS: BMI 28.7
[2021-06-22 17:54] LABS: BASO % 0.4 % (0-2.0); EOS % 0.9 % (0-4.5); HEMATOCRIT 43.8 % (35.4-49); HEMOGLOBIN 14.6 GM/dL (11.7-16.9); LYMPH % 25.6 % (8-40); MCH 29.2 pg (25.7-33.7); MCHC 33.4 g/dl (32.0-35.9); MEAN CELL VOLUME 87.5 fl (80-96); MEAN PLT VOLUME 8.5 fl (7.5-11.1); MONO % 10.3 % (3.8-10.2); NEUT % 62.8 % (42.8-82.8); PLATELET COUNT 170 10^3/uL (134-434); RBC 5.01 M/mm3 (4.00-5.60); RDW 13.7 % (11.9-15.9); WHITE BLOOD COUNT 5.6 K/mm3 (4.0-10.0)
[2021-06-22 18:00] LABS: VENOUS O2 SATURATION 49.5 % (70-80); VENOUS PCO2 54.6 mmHg (38-52); VENOUS PH 7.331 (7.310-7.410)
[2021-06-22 18:18] LABS: CALCIUM 8.5 mg/dL (8.5-10.1)
[2021-06-22 18:19] LABS: ALBUMIN 3.2 g/dl (3.4-5.0); BLOOD UREA NITROGEN 47.6 mg/dL (7-18)
[2021-06-22 18:21] LABS: CREATININE 1.5 mg/dL (0.55-1.3)
[2021-06-22 18:24] LABS: BILIRUBIN,TOTAL 0.7 mg/dL (0.2-1); TOT PROT 7.6 g/dl (6.4-8.2)
[2021-06-22 18:35] LABS: MAGNESIUM 2.3 mg/dL (1.8-2.4)
[2021-06-22] MEDS ORDERED: LACTATED RINGERS SOLUTION 1000 ML INFUS.BAG IV ONE (19:17)
[2021-06-22] MEDS ORDERED: D5-1/2NS+20 MEQ KCL - 20 MEQ/1,000 ML INFUS.BAG IV SCH (21:45)
[2021-06-22] MEDS ORDERED: ATORVASTATIN CA 10 MG TABLET (FP) PO SCH (22:00)
[2021-06-22] MEDS: HEPARIN NA (PORCINE) 5,000 UNITS/ML 1ML VIAL SQ SCH (23:23)
[2021-06-23] MEDS: HEPARIN NA (PORCINE) 5,000 UNITS/ML 1ML VIAL SQ SCH ×3 (06:01→21:46)
[2021-06-23 08:45] LABS: BASO % 0.2 % (0-2.0); EOS % 0.9 % (0-4.5); HEMATOCRIT 40.7 % (35.4-49); HEMOGLOBIN 13.8 GM/dL (11.7-16.9); LYMPH % 27.5 % (8-40); MCH 29.7 pg (25.7-33.7); MCHC 33.9 g/dl (32.0-35.9); MEAN CELL VOLUME 87.6 fl (80-96); MEAN PLT VOLUME 8.4 fl (7.5-11.1); MONO % 10.4 % (3.8-10.2); PLATELET COUNT 161 10^3/uL (134-434); RBC 4.65 M/mm3 (4.00-5.60); RDW 13.5 % (11.9-15.9); WHITE BLOOD COUNT 5.1 K/mm3 (4.0-10.0)
[2021-06-23] MEDS ORDERED: LACTATED RINGERS SOLUTION 1,000 ML/1,000 ML INFUS.BAG IV SCH (09:00)
[2021-06-23 09:04] LABS: CALCIUM 8.3 mg/dL (8.5-10.1)
[2021-06-23 09:05] LABS: BLOOD UREA NITROGEN 48.5 mg/dL (7-18)
[2021-06-23 09:07] LABS: CREATININE 1.3 mg/dL (0.55-1.3)
[2021-06-23] MEDS: ASPIRIN 81 MG CHEWABLE TABLETS PO SCH (09:19)
[2021-06-23] MEDS ORDERED: ALBUTEROL SO4 HFA INHALER IH PRN (12:39)
[2021-06-23 19:46] LABS: VENOUS BASE EXCESS 3.3 mmol/L (-2-2); VENOUS O2 SATURATION 95.4 % (70-80); VENOUS PCO2 42.1 mmHg (38-52); VENOUS PH 7.438 (7.310-7.410)
[2021-06-23 23:54] LABS: EPI CELLS 2 /uL (0-25.1); HYALINE CASTS 1 /uL (0-3.1); PH,URINE 5.5 (5.0-8.0); URINE APPEARANCE CLOUDY; URINE BACTERIA 0 /uL (0-1359); URINE BILIRUBIN NEGATIVE (NEGATIVE); URINE COLOR YELLOW; URINE GLUCOSE (UA) NEGATIVE (NEGATIVE); URINE KETONE 1+ (NEGATIVE); URINE LEUK ESTERASE NEGATIVE (NEGATIVE); URINE NITRITE NEGATIVE (NEGATIVE); URINE PROTEIN 1+ (NEGATIVE); URINE RBC 83 /uL (0-23.9); URINE WBC 4 /uL (0-25.8)
[2021-06-24] MEDS: HEPARIN NA (PORCINE) 5,000 UNITS/ML 1ML VIAL SQ SCH ×3 (05:22→21:34)
[2021-06-24] MEDS: ASPIRIN 81 MG CHEWABLE TABLETS PO SCH (10:09)
[2021-06-24 10:52] LABS: BASO % 0.2 % (0-2.0); EOS % 0.9 % (0-4.5); HEMATOCRIT 41.3 % (35.4-49); HEMOGLOBIN 14.1 GM/dL (11.7-16.9); LYMPH % 26.2 % (8-40); MCH 29.9 pg (25.7-33.7); MCHC 34.3 g/dl (32.0-35.9); MEAN CELL VOLUME 87.4 fl (80-96); MONO % 6.4 % (3.8-10.2); NEUT % 66.3 % (42.8-82.8); PLATELET COUNT 163 10^3/uL (134-434); RBC 4.72 M/mm3 (4.00-5.60); RDW 13.4 % (11.9-15.9); WHITE BLOOD COUNT 5.5 K/mm3 (4.0-10.0)
[2021-06-24 11:20] LABS: ALBUMIN 2.9 g/dl (3.4-5.0); BLOOD UREA NITROGEN 41.2 mg/dL (7-18); CALCIUM 8.3 mg/dL (8.5-10.1); MAGNESIUM 2.3 mg/dL (1.8-2.4)
[2021-06-24 11:23] LABS: CREATININE 1.3 mg/dL (0.55-1.3); PHOSPHOROUS 2.6 mg/dL (2.5-4.9)
[2021-06-24 11:25] LABS: BILIRUBIN,TOTAL 0.6 mg/dL (0.2-1); TOT PROT 6.8 g/dl (6.4-8.2)
[2021-06-24] MEDS: ATORVASTATIN CA 20 MG TABLET (FP) PO SCH (21:34)
[2021-06-25] MEDS: HEPARIN NA (PORCINE) 5,000 UNITS/ML 1ML VIAL SQ SCH ×3 (06:03→21:30)
[2021-06-25 07:47] LABS: BLOOD UREA NITROGEN 33.1 mg/dL (7-18); CALCIUM 8.6 mg/dL (8.5-10.1); MAGNESIUM 2.3 mg/dL (1.8-2.4)
[2021-06-25 07:50] LABS: CREATININE 1.2 mg/dL (0.55-1.3)
[2021-06-25 07:52] LABS: BILIRUBIN,TOTAL 0.7 mg/dL (0.2-1); TOT PROT 7.1 g/dl (6.4-8.2)
[2021-06-25 08:01] LABS: BASO % 0.3 % (0-2.0); EOS % 1.8 % (0-4.5); HEMATOCRIT 40.8 % (35.4-49); HEMOGLOBIN 14.1 GM/dL (11.7-16.9); LYMPH % 29.9 % (8-40); MCH 30.1 pg (25.7-33.7); MCHC 34.6 g/dl (32.0-35.9); MEAN CELL VOLUME 87.1 fl (80-96); MEAN PLT VOLUME 8.8 fl (7.5-11.1); MONO % 9.9 % (3.8-10.2); NEUT % 58.1 % (42.8-82.8); PLATELET COUNT 175 10^3/uL (134-434); RBC 4.68 M/mm3 (4.00-5.60); RDW 13.1 % (11.9-15.9); WHITE BLOOD COUNT 5.5 K/mm3 (4.0-10.0)
[2021-06-25] MEDS: ASPIRIN 81 MG CHEWABLE TABLETS PO SCH (09:39)
[2021-06-25] MEDS: SODIUM CHLORIDE 0.45% 1,000 ML IV SCH (11:29)
[2021-06-25] MEDS: OLANZapine 5 MG TABLET PO SCH (11:33)
[2021-06-25] MEDS: ALBUTEROL SO4 2.5/IPRATROPIUM 0.5 INH SOL 3 ML VIAL.NEB. NEB PRN (11:45)
[2021-06-25] MEDS: ATORVASTATIN CA 20 MG TABLET (FP) PO SCH (21:30)
[2021-06-26] MEDS: HEPARIN NA (PORCINE) 5,000 UNITS/ML 1ML VIAL SQ SCH ×3 (06:10→21:38)
[2021-06-26 07:42] LABS: BASO % 0.3 % (0-2.0); EOS % 1.8 % (0-4.5); HEMATOCRIT 40.3 % (35.4-49); HEMOGLOBIN 13.9 GM/dL (11.7-16.9); LYMPH % 23.6 % (8-40); MCH 30.1 pg (25.7-33.7); MCHC 34.4 g/dl (32.0-35.9); MEAN CELL VOLUME 87.5 fl (80-96); MEAN PLT VOLUME 9.2 fl (7.5-11.1); MONO % 8.5 % (3.8-10.2); NEUT % 65.8 % (42.8-82.8); PLATELET COUNT 167 10^3/uL (134-434); RBC 4.61 M/mm3 (4.00-5.60); RDW 13.1 % (11.9-15.9); WHITE BLOOD COUNT 5.5 K/mm3 (4.0-10.0)
[2021-06-26 08:06] LABS: ALBUMIN 2.9 g/dl (3.4-5.0); BLOOD UREA NITROGEN 27.1 mg/dL (7-18); CALCIUM 8.4 mg/dL (8.5-10.1)
[2021-06-26 08:08] LABS: CREATININE 1.2 mg/dL (0.55-1.3); MAGNESIUM 2.1 mg/dL (1.8-2.4); PHOSPHOROUS 2.8 mg/dL (2.5-4.9)
[2021-06-26 08:11] LABS: BILIRUBIN,TOTAL 0.8 mg/dL (0.2-1); TOT PROT 6.5 g/dl (6.4-8.2)
[2021-06-26] MEDS: MULTIVITAMINS (DAILY MVI) TABLET (FP) PO SCH (09:54)
[2021-06-26] MEDS: ASPIRIN 81 MG CHEWABLE TABLETS PO SCH (09:54)
[2021-06-26] MEDS: OLANZapine 5 MG TABLET PO SCH (09:54)
[2021-06-26] MEDS: SODIUM CHLORIDE 0.45% 1,000 ML IV SCH (10:03)
[2021-06-26] MEDS: ATORVASTATIN CA 20 MG TABLET (FP) PO SCH (21:39)
[2021-06-27] MEDS: SODIUM CHLORIDE 0.45% 1,000 ML IV SCH ×2 (05:54→11:00)
[2021-06-27] MEDS: HEPARIN NA (PORCINE) 5,000 UNITS/ML 1ML VIAL SQ SCH ×3 (05:54→23:23)
[2021-06-27] MEDS: ALBUTEROL SO4 2.5/IPRATROPIUM 0.5 INH SOL 3 ML VIAL.NEB. NEB PRN (08:20)
[2021-06-27] MEDS: MULTIVITAMINS (DAILY MVI) TABLET (FP) PO SCH (11:00)
[2021-06-27] MEDS: ASPIRIN 81 MG CHEWABLE TABLETS PO SCH (11:00)
[2021-06-27] MEDS ORDERED: QUEtiapine FUMARATE 25 MG TABLET PO SCH (22:00)
[2021-06-27] MEDS: ATORVASTATIN CA 20 MG TABLET (FP) PO SCH ×2 (23:23→23:57)
[2021-06-28] MEDS: HEPARIN NA (PORCINE) 5,000 UNITS/ML 1ML VIAL SQ SCH ×3 (06:01→22:04)
[2021-06-28] MEDS: SODIUM CHLORIDE 0.45% 1,000 ML IV SCH ×2 (06:08→10:30)
[2021-06-28 07:53] LABS: CALCIUM 8.7 mg/dL (8.5-10.1)
[2021-06-28 07:54] LABS: ALBUMIN 2.8 g/dl (3.4-5.0); MAGNESIUM 2.5 mg/dL (1.8-2.4)
[2021-06-28 07:57] LABS: CREATININE 1.1 mg/dL (0.55-1.3); PHOSPHOROUS 3.5 mg/dL (2.5-4.9)
[2021-06-28 07:59] LABS: BILIRUBIN,TOTAL 0.9 mg/dL (0.2-1); TOT PROT 6.3 g/dl (6.4-8.2)
[2021-06-28 08:02] LABS: BASO % 0.4 % (0-2.0); HEMATOCRIT 39.6 % (35.4-49); HEMOGLOBIN 13.2 GM/dL (11.7-16.9); LYMPH % 25.4 % (8-40); MCH 29.5 pg (25.7-33.7); MCHC 33.4 g/dl (32.0-35.9); MEAN CELL VOLUME 88.4 fl (80-96); MEAN PLT VOLUME 9.2 fl (7.5-11.1); MONO % 8.6 % (3.8-10.2); NEUT % 63.6 % (42.8-82.8); PLATELET COUNT 167 10^3/uL (134-434); RBC 4.48 M/mm3 (4.00-5.60); RDW 13.4 % (11.9-15.9); WHITE BLOOD COUNT 6.1 K/mm3 (4.0-10.0)
[2021-06-28] MEDS: MULTIVITAMINS (DAILY MVI) TABLET (FP) PO SCH (10:03)
[2021-06-28] MEDS: ASPIRIN 81 MG CHEWABLE TABLETS PO SCH (10:03)
[2021-06-28] MEDS ORDERED: DEXTROSE 50%-WATER - 25 GM/50 ML VIAL IVPUSH PRN (10:12)
[2021-06-28] MEDS ORDERED: DEXTROSE 50%-WATER 25 GM/50 ML DISP.SYRIN ONE (10:34)
[2021-06-28] MEDS ORDERED: FUROSEMIDE 40 MG/4 ML INJECTABLE VIAL IVPUSH ONE (12:34)
[2021-06-28] MEDS ORDERED: QUEtiapine FUMARATE 25 MG TABLET PO SCH (15:29)
[2021-06-28] MEDS: ATORVASTATIN CA 20 MG TABLET (FP) PO SCH (22:04)
[2021-06-29] MEDS: HEPARIN NA (PORCINE) 5,000 UNITS/ML 1ML VIAL SQ SCH ×2 (05:59→13:26)
[2021-06-29] MEDS: MULTIVITAMINS (DAILY MVI) TABLET (FP) PO SCH (09:32)
[2021-06-29] MEDS: ASPIRIN 81 MG CHEWABLE TABLETS PO SCH (09:32)
[2021-06-29] MEDS: SODIUM CHLORIDE 0.45% 1,000 ML IV SCH (10:30)
[2021-06-29 13:30] VITALS: BP 129/74; PULSE 69; TEMP 98.3
== END 2021-06-29 17:58 | DRG 92 ==
LOC: JER 15:18 → JERBED 21:32 → J4S 22:39
PROVIDERS: ADMIT Internal Medicine; ATTEND Student in an Organized Health Care Education/Training Program
DX: G92.8 Other toxic encephalopathy (principal); N17.9 Acute kidney failure, unspecified; M62.82 Rhabdomyolysis; F03.91 Unspecified dementia, unspecified severity, with behavioral disturbance; F05 Delirium due to known physiological condition; I13.0 Hypertensive heart and chronic kidney disease with heart failure and stage 1 through stage 4 chronic kidney disease, or unspecified chronic kidney disease; I50.32 Chronic diastolic (congestive) heart failure; T43.595A Adverse effect of other antipsychotics and neuroleptics, initial encounter; E78.00 Pure hypercholesterolemia, unspecified; I48.0 Paroxysmal atrial fibrillation; I77.1 Stricture of artery; I25.10 Atherosclerotic heart disease of native coronary artery without angina pectoris; R26.81 Unsteadiness on feet; N40.0 Benign prostatic hyperplasia without lower urinary tract symptoms; E86.9 Volume depletion, unspecified; N18.9 Chronic kidney disease, unspecified; J43.2 Centrilobular emphysema; R41.82 Altered mental status, unspecified; Z95.5 Presence of coronary angioplasty implant and graft; D32.9 Benign neoplasm of meninges, unspecified; I95.1 Orthostatic hypotension; H91.93 Unspecified hearing loss, bilateral
CPT/HCPCS: 36415; 70450-TC; 71045-TC-FY; 80048; 80053; 81003; 82140; 82550; 82553; 82607; 82803; 82962; 83735; 84100; 84436; 84443; 84484; 85025; 87086; 93005; 93010; 94640; 97116-GP; 97161-GP; 99285-25; C9803; J1644; U0003; U0005

== ENCOUNTER 2021-10-24 15:50 | Inpatient (IN) | payer OTHER, BC ==
[2021-10-24] MEDS ORDERED: LACTATED RINGERS SOLUTION 1000 ML INFUS.BAG IV ONE ×4 (16:36→20:14)
[2021-10-24] MEDS ORDERED: ACETAMINOPHEN 1000 MG/100 ML BAG IVPB ONE (16:36)
[2021-10-24] MEDS ORDERED: ACETAMINOPHEN INJECTION 100 ML IVPB ONE (16:54)
[2021-10-24 16:57] LABS: VENOUS BASE EXCESS 0.2 mmol/L (-2-2); VENOUS O2 SATURATION 47.3 % (70-80); VENOUS PCO2 42.7 mmHg (38-52); VENOUS PH 7.391 (7.310-7.410)
[2021-10-24 17:00] LABS: HEMATOCRIT 40.1 % (35.4-49); HEMOGLOBIN 13.4 GM/dL (11.7-16.9); MCH 30.2 pg (25.7-33.7); MCHC 33.3 g/dl (32.0-35.9); MEAN CELL VOLUME 90.6 fl (80-96); MEAN PLT VOLUME 8.6 fl (7.5-11.1); PLATELET COUNT 98 10^3/uL (134-434); RBC 4.43 M/mm3 (4.00-5.60); RDW 14.1 % (11.9-15.9); WHITE BLOOD COUNT 4.9 K/mm3 (4.0-10.0)
[2021-10-24 17:21] LABS: BLOOD UREA NITROGEN 34.2 mg/dL (7-18); CALCIUM 9.3 mg/dL (8.5-10.1)
[2021-10-24 17:22] LABS: ALBUMIN 3.6 g/dl (3.4-5.0)
[2021-10-24 17:24] LABS: CREATININE 1.9 mg/dL (0.55-1.3)
[2021-10-24 17:26] LABS: BILIRUBIN,TOTAL 1.3 mg/dL (0.2-1); TOT PROT 7.1 g/dl (6.4-8.2)
[2021-10-24 18:03] LABS: EPI CELLS 3 /uL (0-25.1); HYALINE CASTS 1 /uL (0-3.1); URINE APPEARANCE CLEAR; URINE BACTERIA >9,000 /uL (0-1359); URINE BILIRUBIN NEGATIVE (NEGATIVE); URINE COLOR YELLOW; URINE GLUCOSE (UA) NEGATIVE (NEGATIVE); URINE KETONE NEGATIVE (NEGATIVE); URINE LEUK ESTERASE 2+ (NEGATIVE); URINE NITRITE POSITIVE (NEGATIVE); URINE PROTEIN 1+ (NEGATIVE); URINE RBC 208 /uL (0-23.9); URINE WBC 1012 /uL (0-25.8)
[2021-10-24] MEDS ORDERED: CEFTRIAXONE 1 GM in DEXTROSE 5%-WATER - 100 ML IVPB ONE (18:04)
[2021-10-24] MEDS ORDERED: cefTRIAXone SODIUM 1 GM VIAL ONE (18:25)
[2021-10-24 18:37] LABS: PLATELET ESTIMATE DECREASED
[2021-10-24] MEDS ORDERED: LACTATED RINGERS SOLUTION 1,000 ML/1,000 ML INFUS.BAG IV SCH ×2 (20:30→22:15)
[2021-10-24 20:56] LABS: INR 1.34 (0.83-1.09); PROTHROMBIN TIME (PATIENT) 15.5 SEC (9.7-13.0)
[2021-10-24 20:57] LABS: ACTIVATED PTT 24.6 SECONDS (25.2-36.5)
[2021-10-24] MEDS ORDERED: LACTATED RINGERS SOLUTION 1,000 ML/1,000 ML INFUS.BAG IV STA (20:58)
[2021-10-24] MEDS ORDERED: DEXTROSE 5%-WATER - 50 ML IVPB ONE (22:21)
[2021-10-24] MEDS ORDERED: PIPERACILLIN/TAZOBACTAM 2.25 GM VIAL IVPB ONE (22:21)
[2021-10-24] MEDS: PIPERACILLIN/TAZOB 2.25 GM 2.25 GM in DEXTROSE 5%-WATER - 50 ML IVPB SCH (23:06)
[2021-10-24] MEDS: SODIUM CHLORIDE 1,000 ML IV SCH (23:07)
[2021-10-24 23:54] VITALS: BMI 32.1
[2021-10-25 00:07] LABS: LACTIC ACID 2.9 mmol/L (0.4-2.0)
[2021-10-25] MEDS ORDERED: ACETAMINOPHEN 1000 MG/100 ML BAG IVPB PRN (00:58)
[2021-10-25] MEDS ORDERED: PIPERACILLIN/TAZOBACTAM 2.25 GM VIAL IVPB ONE (04:21)
[2021-10-25] MEDS ORDERED: DEXTROSE 5%-WATER - 50 ML IVPB ONE ×2 (04:21→16:57)
[2021-10-25] MEDS: PIPERACILLIN/TAZOB 2.25 GM 2.25 GM in DEXTROSE 5%-WATER - 50 ML IVPB SCH ×3 (04:55→16:34)
[2021-10-25 08:22] LABS: BASO % 0.1 % (0-2.0); HEMOGLOBIN 12.1 GM/dL (11.7-16.9); LYMPH % 5.8 % (8-40); MCH 30.3 pg (25.7-33.7); MCHC 33.5 g/dl (32.0-35.9); MEAN CELL VOLUME 90.5 fl (80-96); MEAN PLT VOLUME 8.9 fl (7.5-11.1); MONO % 7.3 % (3.8-10.2); NEUT % 86.8 % (42.8-82.8); PLATELET COUNT 79 10^3/uL (134-434); RBC 3.98 M/mm3 (4.00-5.60); RDW 14.4 % (11.9-15.9); WHITE BLOOD COUNT 11.3 K/mm3 (4.0-10.0)
[2021-10-25 08:41] LABS: CALCIUM 8.7 mg/dL (8.5-10.1)
[2021-10-25 08:42] LABS: BLOOD UREA NITROGEN 32.7 mg/dL (7-18)
[2021-10-25 08:45] LABS: BILIRUBIN,TOTAL 0.9 mg/dL (0.2-1); PHOSPHOROUS 4.3 mg/dL (2.5-4.9)
[2021-10-25 08:47] LABS: ALBUMIN 2.8 g/dl (3.4-5.0)
[2021-10-25] MEDS ORDERED: PIPERACILLIN/TAZOBACTAM 3.375 GM VIAL IVPB ONE (16:56)
[2021-10-25] MEDS: PIPERACILLIN/TAZOB 3.375 GM 3.375 GM in DEXTROSE 5%-WATER - 50 ML IVPB SCH (17:13)
[2021-10-25] MEDS: SODIUM CHLORIDE 1,000 ML IV SCH (21:52)
[2021-10-25] MEDS: HEPARIN NA (PORCINE) 5,000 UNITS/ML 1ML VIAL SQ SCH (21:52)
[2021-10-26] MEDS ORDERED: DEXTROSE 5%-WATER - 50 ML IVPB ONE ×2 (01:08→09:12)
[2021-10-26] MEDS ORDERED: PIPERACILLIN/TAZOBACTAM 3.375 GM VIAL IVPB ONE ×2 (01:08→09:12)
[2021-10-26] MEDS: PIPERACILLIN/TAZOB 3.375 GM 3.375 GM in DEXTROSE 5%-WATER - 50 ML IVPB SCH ×2 (01:37→09:53)
[2021-10-26] MEDS: HEPARIN NA (PORCINE) 5,000 UNITS/ML 1ML VIAL SQ SCH ×2 (09:53→21:40)
[2021-10-26 12:46] LABS: BASO % 0.1 % (0-2.0); EOS % 0.1 % (0-4.5); HEMATOCRIT 34.5 % (35.4-49); HEMOGLOBIN 11.9 GM/dL (11.7-16.9); LYMPH % 9.9 % (8-40); MCH 30.6 pg (25.7-33.7); MCHC 34.4 g/dl (32.0-35.9); MEAN PLT VOLUME 9.2 fl (7.5-11.1); MONO % 7.8 % (3.8-10.2); NEUT % 82.1 % (42.8-82.8); PLATELET COUNT 76 10^3/uL (134-434); RBC 3.88 M/mm3 (4.00-5.60); RDW 14.4 % (11.9-15.9); WHITE BLOOD COUNT 9.3 K/mm3 (4.0-10.0)
[2021-10-26 13:13] LABS: ALBUMIN 2.4 g/dl (3.4-5.0)
[2021-10-26 13:16] LABS: CREATININE 1.5 mg/dL (0.55-1.3)
[2021-10-26 13:17] LABS: TOT PROT 5.6 g/dl (6.4-8.2)
[2021-10-26 13:20] LABS: BILIRUBIN,TOTAL 0.8 mg/dL (0.2-1)
[2021-10-26] MEDS ORDERED: BISACODYL 10 MG SUPP.RECT PR ONE (15:02)
[2021-10-26] MEDS ORDERED: DEXTROSE 5%-WATER 100 ML IVPB ONE (17:06)
[2021-10-26] MEDS: CEFTRIAXONE 2 GM in DEXTROSE 5%-WATER 2 GM/100 ML BAG IVPB SCH (17:20)
[2021-10-26] MEDS ORDERED: LORazepam 2 MG/ML SDV VIAL IVPB ONE (18:47)
[2021-10-26] MEDS: SODIUM CHLORIDE 1,000 ML IV SCH (21:39)
[2021-10-26] MEDS: ATORVASTATIN CA 10 MG TABLET (FP) PO SCH (21:40)
[2021-10-27] MEDS: SODIUM CHLORIDE 1,000 ML IV SCH (06:48)
[2021-10-27] MEDS ORDERED: DEXTROSE 5%-WATER 100 ML IVPB ONE (08:11)
[2021-10-27 08:54] LABS: BASO % 0.1 % (0-2.0); EOS % 0.3 % (0-4.5); HEMOGLOBIN 12.5 GM/dL (11.7-16.9); MCH 30.2 pg (25.7-33.7); MCHC 33.8 g/dl (32.0-35.9); MEAN CELL VOLUME 89.4 fl (80-96); MEAN PLT VOLUME 9.7 fl (7.5-11.1); NEUT % 79.6 % (42.8-82.8); PLATELET COUNT 88 10^3/uL (134-434); RBC 4.13 M/mm3 (4.00-5.60); RDW 14.4 % (11.9-15.9); WHITE BLOOD COUNT 7.6 K/mm3 (4.0-10.0)
[2021-10-27 09:22] LABS: CALCIUM 8.5 mg/dL (8.5-10.1)
[2021-10-27 09:23] LABS: ALBUMIN 2.6 g/dl (3.4-5.0); BLOOD UREA NITROGEN 28.4 mg/dL (7-18); MAGNESIUM 2.1 mg/dL (1.8-2.4)
[2021-10-27 09:26] LABS: CREATININE 1.1 mg/dL (0.55-1.3)
[2021-10-27 09:27] LABS: BILIRUBIN,TOTAL 0.7 mg/dL (0.2-1); TOT PROT 5.8 g/dl (6.4-8.2)
[2021-10-27] MEDS: HEPARIN NA (PORCINE) 5,000 UNITS/ML 1ML VIAL SQ SCH ×2 (09:29→22:49)
[2021-10-27] MEDS: CEFTRIAXONE 2 GM in DEXTROSE 5%-WATER 2 GM/100 ML BAG IVPB SCH (09:29)
[2021-10-27] MEDS: ASPIRIN 81 MG CHEWABLE TABLETS PO SCH (09:30)
[2021-10-27] MEDS ORDERED: POTASSIUM CHLORIDE TABS 20 MEQ TABLET.ER (FP) PO ONE (15:27)
[2021-10-27] MEDS: ATORVASTATIN CA 10 MG TABLET (FP) PO SCH (22:49)
[2021-10-28 09:03] LABS: BASO % 0.3 % (0-2.0); EOS % 0.4 % (0-4.5); HEMATOCRIT 40.4 % (35.4-49); HEMOGLOBIN 13.9 GM/dL (11.7-16.9); LYMPH % 19.8 % (8-40); MCH 30.5 pg (25.7-33.7); MCHC 34.3 g/dl (32.0-35.9); MEAN CELL VOLUME 89.1 fl (80-96); MEAN PLT VOLUME 9.8 fl (7.5-11.1); MONO % 10.4 % (3.8-10.2); NEUT % 69.1 % (42.8-82.8); PLATELET COUNT 103 10^3/uL (134-434); RBC 4.54 M/mm3 (4.00-5.60); RDW 14.4 % (11.9-15.9); WHITE BLOOD COUNT 7.3 K/mm3 (4.0-10.0)
[2021-10-28 09:26] LABS: ALBUMIN 2.8 g/dl (3.4-5.0); BLOOD UREA NITROGEN 29.6 mg/dL (7-18); CALCIUM 8.9 mg/dL (8.5-10.1); MAGNESIUM 2.1 mg/dL (1.8-2.4)
[2021-10-28 09:28] LABS: CREATININE 1.1 mg/dL (0.55-1.3)
[2021-10-28 09:29] LABS: BILIRUBIN,TOTAL 0.7 mg/dL (0.2-1)
[2021-10-28 09:30] LABS: TOT PROT 6.5 g/dl (6.4-8.2)
[2021-10-28] MEDS ORDERED: DEXTROSE 5%-WATER 100 ML IVPB ONE (12:04)
[2021-10-28] MEDS: CEFTRIAXONE 2 GM in DEXTROSE 5%-WATER 2 GM/100 ML BAG IVPB SCH (12:07)
[2021-10-28] MEDS: ASPIRIN 81 MG CHEWABLE TABLETS PO SCH (12:08)
[2021-10-28] MEDS: HEPARIN NA (PORCINE) 5,000 UNITS/ML 1ML VIAL SQ SCH ×2 (12:08→22:06)
[2021-10-28] MEDS ORDERED: ACETAMINOPHEN 325 MG TABLET (FP) PO PRN (17:12)
[2021-10-28] MEDS: ATORVASTATIN CA 10 MG TABLET (FP) PO SCH (22:06)
[2021-10-29 08:01] LABS: BASO % 0.1 % (0-2.0); EOS % 0.5 % (0-4.5); HEMOGLOBIN 13.3 GM/dL (11.7-16.9); LYMPH % 19.8 % (8-40); MCH 30.5 pg (25.7-33.7); MCHC 34.2 g/dl (32.0-35.9); MEAN CELL VOLUME 89.1 fl (80-96); MEAN PLT VOLUME 9.3 fl (7.5-11.1); MONO % 12.1 % (3.8-10.2); NEUT % 67.5 % (42.8-82.8); PLATELET COUNT 108 10^3/uL (134-434); RBC 4.38 M/mm3 (4.00-5.60); RDW 14.2 % (11.9-15.9); WHITE BLOOD COUNT 6.8 K/mm3 (4.0-10.0)
[2021-10-29 08:20] LABS: ALBUMIN 2.7 g/dl (3.4-5.0); BLOOD UREA NITROGEN 32.7 mg/dL (7-18); CALCIUM 8.4 mg/dL (8.5-10.1)
[2021-10-29 08:23] LABS: CREATININE 1.3 mg/dL (0.55-1.3)
[2021-10-29 08:25] LABS: BILIRUBIN,TOTAL 0.7 mg/dL (0.2-1); TOT PROT 6.5 g/dl (6.4-8.2)
[2021-10-29] MEDS ORDERED: POTASSIUM CHLORIDE TABS 20 MEQ TABLET.ER (FP) PO ONE (08:50)
[2021-10-29] MEDS ORDERED: DEXTROSE 5%-WATER 100 ML IVPB ONE (10:01)
[2021-10-29] MEDS: CEFTRIAXONE 2 GM in DEXTROSE 5%-WATER 2 GM/100 ML BAG IVPB SCH (11:08)
[2021-10-29] MEDS: HEPARIN NA (PORCINE) 5,000 UNITS/ML 1ML VIAL SQ SCH ×2 (11:09→22:10)
[2021-10-29] MEDS: ASPIRIN 81 MG CHEWABLE TABLETS PO SCH (11:09)
[2021-10-29] MEDS: ATORVASTATIN CA 10 MG TABLET (FP) PO SCH (22:10)
[2021-10-30] MEDS ORDERED: DEXTROSE 5%-WATER 100 ML IVPB ONE (08:29)
[2021-10-30] MEDS: HEPARIN NA (PORCINE) 5,000 UNITS/ML 1ML VIAL SQ SCH ×2 (09:01→22:41)
[2021-10-30] MEDS: CEFTRIAXONE 2 GM in DEXTROSE 5%-WATER 2 GM/100 ML BAG IVPB SCH (09:02)
[2021-10-30] MEDS: ASPIRIN 81 MG CHEWABLE TABLETS PO SCH (09:02)
[2021-10-30 09:57] LABS: BASO % 0.2 % (0-2.0); EOS % 1.8 % (0-4.5); HEMATOCRIT 40.3 % (35.4-49); LYMPH % 24.7 % (8-40); MCH 29.4 pg (25.7-33.7); MCHC 32.3 g/dl (32.0-35.9); MEAN CELL VOLUME 90.9 fl (80-96); MEAN PLT VOLUME 9.3 fl (7.5-11.1); MONO % 11.2 % (3.8-10.2); NEUT % 62.1 % (42.8-82.8); PLATELET COUNT 133 10^3/uL (134-434); RBC 4.43 M/mm3 (4.00-5.60); RDW 14.3 % (11.9-15.9); WHITE BLOOD COUNT 6.2 K/mm3 (4.0-10.0)
[2021-10-30 10:33] LABS: ALBUMIN 2.6 g/dl (3.4-5.0); CALCIUM 8.2 mg/dL (8.5-10.1)
[2021-10-30 10:34] LABS: BLOOD UREA NITROGEN 35.8 mg/dL (7-18); MAGNESIUM 2.2 mg/dL (1.8-2.4)
[2021-10-30 10:36] LABS: TOT PROT 6.3 g/dl (6.4-8.2)
[2021-10-30 10:37] LABS: CREATININE 1.1 mg/dL (0.55-1.3)
[2021-10-30 10:43] LABS: BILIRUBIN,TOTAL 0.5 mg/dL (0.2-1)
[2021-10-30] MEDS ORDERED: POTASSIUM CHLORIDE TABS 20 MEQ TABLET.ER (FP) PO ONE (12:01)
[2021-10-30] MEDS: ATORVASTATIN CA 10 MG TABLET (FP) PO SCH (22:41)
[2021-10-30] MEDS: LORazepam 2 MG/ML SDV VIAL IVPB PRN (22:41)
[2021-10-31] MEDS ORDERED: DEXTROSE 5%-WATER 100 ML IVPB ONE (08:50)
[2021-10-31 09:18] LABS: BASO % 0.4 % (0-2.0); EOS % 3.1 % (0-4.5); HEMATOCRIT 38.2 % (35.4-49); HEMOGLOBIN 12.9 GM/dL (11.7-16.9); LYMPH % 30.2 % (8-40); MCH 30.2 pg (25.7-33.7); MCHC 33.8 g/dl (32.0-35.9); MEAN CELL VOLUME 89.3 fl (80-96); MEAN PLT VOLUME 8.8 fl (7.5-11.1); MONO % 12.3 % (3.8-10.2); PLATELET COUNT 144 10^3/uL (134-434); RBC 4.27 M/mm3 (4.00-5.60); RDW 14.2 % (11.9-15.9); WHITE BLOOD COUNT 5.2 K/mm3 (4.0-10.0)
[2021-10-31 09:52] LABS: CALCIUM 8.8 mg/dL (8.5-10.1)
[2021-10-31 09:53] LABS: ALBUMIN 2.6 g/dl (3.4-5.0); BLOOD UREA NITROGEN 33.8 mg/dL (7-18); MAGNESIUM 2.2 mg/dL (1.8-2.4)
[2021-10-31 09:57] LABS: BILIRUBIN,TOTAL 1.3 mg/dL (0.2-1)
[2021-10-31 09:58] LABS: TOT PROT 6.2 g/dl (6.4-8.2)
[2021-10-31] MEDS: CEFTRIAXONE 2 GM in DEXTROSE 5%-WATER 2 GM/100 ML BAG IVPB SCH (10:03)
[2021-10-31] MEDS: HEPARIN NA (PORCINE) 5,000 UNITS/ML 1ML VIAL SQ SCH ×2 (10:04→21:14)
[2021-10-31] MEDS: ASPIRIN 81 MG CHEWABLE TABLETS PO SCH (10:04)
[2021-10-31] MEDS: ATORVASTATIN CA 10 MG TABLET (FP) PO SCH (21:14)
[2021-10-31] MEDS: CEFUROXIME AXETIL 500 MG TABLET PO SCH (21:14)
[2021-10-31] MEDS: LORazepam 2 MG/ML SDV VIAL IVPB PRN (21:15)
[2021-11-01 05:34] VITALS: BP 157/82; PULSE 74; TEMP 98.5
[2021-11-01 08:48] LABS: BASO % 0.3 % (0-2.0); EOS % 1.9 % (0-4.5); HEMATOCRIT 36.2 % (35.4-49); HEMOGLOBIN 12.2 GM/dL (11.7-16.9); LYMPH % 26.5 % (8-40); MCH 30.3 pg (25.7-33.7); MCHC 33.8 g/dl (32.0-35.9); MEAN CELL VOLUME 89.7 fl (80-96); MEAN PLT VOLUME 8.6 fl (7.5-11.1); MONO % 10.2 % (3.8-10.2); NEUT % 61.1 % (42.8-82.8); PLATELET COUNT 153 10^3/uL (134-434); RBC 4.03 M/mm3 (4.00-5.60); RDW 14.3 % (11.9-15.9); WHITE BLOOD COUNT 5.4 K/mm3 (4.0-10.0)
[2021-11-01 09:04] LABS: ALBUMIN 2.4 g/dl (3.4-5.0); BLOOD UREA NITROGEN 32.9 mg/dL (7-18); CALCIUM 8.2 mg/dL (8.5-10.1); MAGNESIUM 2.2 mg/dL (1.8-2.4)
[2021-11-01 09:07] LABS: CREATININE 0.9 mg/dL (0.55-1.3)
[2021-11-01 09:09] LABS: BILIRUBIN,TOTAL 0.4 mg/dL (0.2-1); TOT PROT 5.8 g/dl (6.4-8.2)
[2021-11-01] MEDS ORDERED: MULTIVITAMINS THER W-MINERALS COMBO TABLET (FP) PO SCH (10:00)
[2021-11-01] MEDS: HEPARIN NA (PORCINE) 5,000 UNITS/ML 1ML VIAL SQ SCH (10:06)
[2021-11-01] MEDS: ASPIRIN 81 MG CHEWABLE TABLETS PO SCH (10:06)
[2021-11-01] MEDS: CEFUROXIME AXETIL 500 MG TABLET PO SCH (10:06)
== END 2021-11-01 12:49 | disposition home health service (06) | DRG 871 ==
LOC: JER 15:50 → JERBED 17:46 → J7W 20:59
PROVIDERS: ADMIT Internal Medicine; ATTEND Nurse Practitioner Acute Care
DX: A41.59 Other Gram-negative sepsis (principal); G93.41 Metabolic encephalopathy; N17.9 Acute kidney failure, unspecified; E87.2 Acidosis; N39.0 Urinary tract infection, site not specified; F03.90 Unspecified dementia, unspecified severity, without behavioral disturbance, psychotic disturbance, mood disturbance, and anxiety; E03.9 Hypothyroidism, unspecified; I12.9 Hypertensive chronic kidney disease with stage 1 through stage 4 chronic kidney disease, or unspecified chronic kidney disease; D69.59 Other secondary thrombocytopenia; N18.9 Chronic kidney disease, unspecified; E78.5 Hyperlipidemia, unspecified; I45.10 Unspecified right bundle-branch block; I25.10 Atherosclerotic heart disease of native coronary artery without angina pectoris; I48.0 Paroxysmal atrial fibrillation; D72.829 Elevated white blood cell count, unspecified; N40.0 Benign prostatic hyperplasia without lower urinary tract symptoms
CPT/HCPCS: 36415; 70450-TC; 71045-TC-FY; 76775-TC; 80053; 81003; 82550; 82803; 83605; 83735; 83880; 84100; 84484; 85025; 85610; 85730; 86850; 86900; 86901; 87040; 87086; 87186; 87804; 87807; 93005; 93010; 97116-GP; 97161-GP; 99285-25; C9803; J1644; U0003; U0005

== ENCOUNTER 2022-01-28 14:11 | Emergency (ER) | payer OTHER, BC ==
[2022-01-28 14:50] VITALS: BP 184/92; PULSE 64; TEMP 98.2; BMI 33.7
== END 2022-01-28 16:09 | disposition home or self-care (01) ==
LOC: FER 14:11
DX: I10 Essential (primary) hypertension (principal)
CPT/HCPCS: 99283-25

== ENCOUNTER 2022-02-03 18:24 | Inpatient (IN) | payer OTHER, BC ==
[2022-02-03] MEDS ORDERED: SODIUM CHLORIDE 0.9% 500 ML INFUS.BAG IV ONE (19:21)
[2022-02-03] MEDS ORDERED: ACETAMINOPHEN 1000 MG/100 ML BAG IVPB ONE (19:27)
[2022-02-03] MEDS ORDERED: ACETAMINOPHEN INJECTION 100 ML IVPB ONE (19:51)
[2022-02-03 20:06] LABS: HEMATOCRIT 38.2 % (35.4-49); MCHC 33.9 g/dl (32.0-35.9); MEAN CELL VOLUME 91.4 fl (80-96); MEAN PLT VOLUME 8.6 fl (7.5-11.1); PLATELET COUNT 156.6 10^3/uL (134-434); RBC 4.18 10^6/uL (4.00-5.60); RDW 15.2 % (11.9-15.9); WHITE BLOOD COUNT 11.1 10^3/uL (4.0-10.8)
[2022-02-03 20:07] LABS: ALBUMIN 3.4 g/dl (3.4-5.0); CREATININE 1.3 mg/dl (0.55-1.3); TOT PROT 6.7 g/dl (6.4-8.2)
[2022-02-03 21:10] LABS: LACTIC ACID 3.1 mmol/L (0.4-2.0)
[2022-02-03 22:13] LABS: EPITHELIAL CELLS FEW /hpf; TRIPLE PHOSPHATE CRYSTAL FEW /hpf (NONE SEEN)
[2022-02-03] MEDS ORDERED: CEFTRIAXONE 1,000 MG in DEXTROSE 5%-WATER - 50 ML IVPB ONE (22:14)
[2022-02-03] MEDS ORDERED: cefTRIAXone SODIUM 1 GM VIAL ONE (22:14)
[2022-02-03] MEDS ORDERED: ACETAMINOPHEN 325 MG TABLET (FP) PO PRN (22:23)
[2022-02-03] MEDS ORDERED: POLYETHYLENE GLYCOL (HEALTHYLAX) 3350 17 GM PACKET PO PRN (22:23)
[2022-02-04 04:39] VITALS: BMI 23.0
[2022-02-04 09:58] LABS: BASO % 0.1 % (0-2.0); EOS % 0.2 % (0-4.5); HEMATOCRIT 32.9 % (35.4-49); HEMOGLOBIN 11.1 GM/dL (11.7-16.9); LYMPH % 14.3 % (8-40); MCH 30.9 pg (25.7-33.7); MCHC 33.9 g/dl (32.0-35.9); MEAN CELL VOLUME 91.1 fl (80-96); MEAN PLT VOLUME 9.1 fl (7.5-11.1); NEUT % 76.4 % (42.8-82.8); PLATELET COUNT 130 10^3/uL (134-434); RBC 3.61 M/mm3 (4.00-5.60); RDW 14.5 % (11.9-15.9); WHITE BLOOD COUNT 10.8 K/mm3 (4.0-10.0)
[2022-02-04 10:22] LABS: BLOOD UREA NITROGEN 36.3 mg/dL (7-18); CALCIUM 8.5 mg/dL (8.5-10.1); MAGNESIUM 2.2 mg/dL (1.8-2.4)
[2022-02-04] MEDS ORDERED: ASPIRIN 81 MG CHEWABLE TABLETS PO SCH (12:30)
[2022-02-04] MEDS: HEPARIN NA (PORCINE) 5,000 UNITS/ML 1ML VIAL SQ SCH ×2 (13:50→22:37)
[2022-02-04] MEDS ORDERED: ATORVASTATIN CA 10 MG TABLET (FP) PO SCH (22:00)
[2022-02-04] MEDS ORDERED: CEFTRIAXONE 1 GM in DEXTROSE 5%-WATER - 50 ML IVPB SCH (22:00)
[2022-02-04] MEDS ORDERED: DEXTROSE 5%-WATER - 50 ML IVPB ONE (22:35)
[2022-02-04] MEDS ORDERED: cefTRIAXone SODIUM 1 GM VIAL ONE (22:35)
[2022-02-04] MEDS ORDERED: POLYETHYLENE GLYCOL (HEALTHYLAX) 3350 17 GM PACKET PO PRN (22:38)
[2022-02-04] MEDS ORDERED: ACETAMINOPHEN 325 MG TABLET (FP) PO PRN (22:38)
[2022-02-05] MEDS: HEPARIN NA (PORCINE) 5,000 UNITS/ML 1ML VIAL SQ SCH ×3 (05:15→21:32)
[2022-02-05 07:46] LABS: BASO % 0.1 % (0-2.0); EOS % 0.3 % (0-4.5); HEMATOCRIT 36.8 % (35.4-49); HEMOGLOBIN 12.2 GM/dL (11.7-16.9); LYMPH % 15.1 % (8-40); MCH 30.1 pg (25.7-33.7); MCHC 33.2 g/dl (32.0-35.9); MEAN CELL VOLUME 90.6 fl (80-96); MEAN PLT VOLUME 9.4 fl (7.5-11.1); MONO % 9.3 % (3.8-10.2); NEUT % 75.2 % (42.8-82.8); PLATELET COUNT 116 10^3/uL (134-434); RBC 4.06 M/mm3 (4.00-5.60); RDW 14.5 % (11.9-15.9)
[2022-02-05 08:03] LABS: CALCIUM 8.8 mg/dL (8.5-10.1)
[2022-02-05 08:04] LABS: ALBUMIN 3.3 g/dl (3.4-5.0); BLOOD UREA NITROGEN 26.8 mg/dL (7-18); MAGNESIUM 2.2 mg/dL (1.8-2.4)
[2022-02-05 08:07] LABS: PHOSPHOROUS 2.7 mg/dL (2.5-4.9)
[2022-02-05 08:08] LABS: BILIRUBIN,TOTAL 0.8 mg/dL (0.2-1); TOT PROT 7.4 g/dl (6.4-8.2)
[2022-02-05] MEDS: amLODIPine BESYLATE 5 MG TABLET (FP) PO SCH ×2 (10:36→21:32)
[2022-02-05] MEDS: ASPIRIN 81 MG CHEWABLE TABLETS PO SCH (10:37)
[2022-02-05] MEDS: METOPROLOL TARTRATE 50 MG TABLET (FP) PO SCH ×2 (10:37→21:32)
[2022-02-05] MEDS: ATORVASTATIN CA 10 MG TABLET (FP) PO SCH (21:32)
[2022-02-05] MEDS ORDERED: cefTRIAXone SODIUM 1 GM VIAL ONE (21:36)
[2022-02-05] MEDS ORDERED: DEXTROSE 5%-WATER - 50 ML IVPB ONE (21:36)
[2022-02-05] MEDS: CEFTRIAXONE 1 GM in DEXTROSE 5%-WATER - 50 ML IVPB SCH (21:37)
[2022-02-06] MEDS: HEPARIN NA (PORCINE) 5,000 UNITS/ML 1ML VIAL SQ SCH ×3 (05:01→21:27)
[2022-02-06 07:04] LABS: HEMOGLOBIN 12.5 GM/dL (11.7-16.9); MCH 29.9 pg (25.7-33.7); MEAN CELL VOLUME 90.6 fl (80-96); PLATELET COUNT 143 10^3/uL (134-434); RBC 4.19 M/mm3 (4.00-5.60); RDW 13.7 % (11.9-15.9); WHITE BLOOD COUNT 5.9 K/mm3 (4.0-10.0)
[2022-02-06 07:24] LABS: CALCIUM 8.9 mg/dL (8.5-10.1)
[2022-02-06 07:25] LABS: BLOOD UREA NITROGEN 23.3 mg/dL (7-18)
[2022-02-06 07:28] LABS: CREATININE 0.9 mg/dL (0.55-1.3)
[2022-02-06] MEDS: ASPIRIN 81 MG CHEWABLE TABLETS PO SCH (09:16)
[2022-02-06] MEDS: amLODIPine BESYLATE 5 MG TABLET (FP) PO SCH (09:16)
[2022-02-06] MEDS: METOPROLOL TARTRATE 50 MG TABLET (FP) PO SCH ×2 (09:16→21:27)
[2022-02-06] MEDS ORDERED: amLODIPine BESYLATE 2.5 MG TABLET (FP) PO SCH (09:21)
[2022-02-06] MEDS ORDERED: LOSARTAN POTASSIUM 50 MG TABLET PO SCH (10:00)
[2022-02-06] MEDS ORDERED: DEXTROSE 5%-WATER - 50 ML IVPB ONE (21:14)
[2022-02-06] MEDS ORDERED: cefTRIAXone SODIUM 1 GM VIAL ONE (21:14)
[2022-02-06] MEDS: CEFTRIAXONE 1 GM in DEXTROSE 5%-WATER - 50 ML IVPB SCH (21:27)
[2022-02-06] MEDS: ATORVASTATIN CA 10 MG TABLET (FP) PO SCH (21:27)
[2022-02-07] MEDS: HEPARIN NA (PORCINE) 5,000 UNITS/ML 1ML VIAL SQ SCH ×3 (05:31→21:14)
[2022-02-07 08:12] LABS: BLOOD UREA NITROGEN 29.9 mg/dL (7-18)
[2022-02-07 08:17] LABS: HEMATOCRIT 38.9 % (35.4-49); HEMOGLOBIN 13.3 GM/dL (11.7-16.9); MCH 30.7 pg (25.7-33.7); MCHC 34.3 g/dl (32.0-35.9); MEAN CELL VOLUME 89.6 fl (80-96); MEAN PLT VOLUME 8.8 fl (7.5-11.1); PLATELET COUNT 157 10^3/uL (134-434); RBC 4.34 M/mm3 (4.00-5.60); RDW 13.9 % (11.9-15.9); WHITE BLOOD COUNT 4.7 K/mm3 (4.0-10.0)
[2022-02-07] MEDS: ASPIRIN 81 MG CHEWABLE TABLETS PO SCH (09:52)
[2022-02-07] MEDS: METOPROLOL TARTRATE 50 MG TABLET (FP) PO SCH ×2 (09:52→23:36)
[2022-02-07] MEDS ORDERED: QUEtiapine FUMARATE 25 MG TABLET PO ONE ×2 (17:50→21:00)
[2022-02-07] MEDS ORDERED: cefTRIAXone SODIUM 1 GM VIAL ONE (21:08)
[2022-02-07] MEDS ORDERED: DEXTROSE 5%-WATER - 50 ML IVPB ONE (21:08)
[2022-02-07] MEDS: CEFTRIAXONE 1 GM in DEXTROSE 5%-WATER - 50 ML IVPB SCH (21:15)
[2022-02-07] MEDS: ATORVASTATIN CA 10 MG TABLET (FP) PO SCH (21:15)
[2022-02-08] MEDS: HEPARIN NA (PORCINE) 5,000 UNITS/ML 1ML VIAL SQ SCH (05:14)
[2022-02-08 07:36] LABS: HEMATOCRIT 40.7 % (35.4-49); HEMOGLOBIN 13.7 GM/dL (11.7-16.9); MCH 30.5 pg (25.7-33.7); MCHC 33.6 g/dl (32.0-35.9); MEAN CELL VOLUME 90.8 fl (80-96); MEAN PLT VOLUME 8.6 fl (7.5-11.1); PLATELET COUNT 157 10^3/uL (134-434); RBC 4.49 M/mm3 (4.00-5.60); RDW 13.8 % (11.9-15.9); WHITE BLOOD COUNT 5.1 K/mm3 (4.0-10.0)
[2022-02-08 07:56] LABS: CALCIUM 9.2 mg/dL (8.5-10.1)
[2022-02-08 07:59] LABS: CREATININE 1.1 mg/dL (0.55-1.3)
[2022-02-08] MEDS: METOPROLOL TARTRATE 50 MG TABLET (FP) PO SCH (09:30)
[2022-02-08] MEDS: ASPIRIN 81 MG CHEWABLE TABLETS PO SCH (09:30)
[2022-02-08 13:12] VITALS: BP 154/82; PULSE 65; TEMP 98.6
== END 2022-02-08 11:30 | disposition home or self-care (01) | DRG 689 ==
LOC: FER 18:24 → SUPCPDRO 18:24 → J6S 02-04 02:28 → J2W 02-04 22:26
PROVIDERS: ADMIT Hospitalist; ATTEND Internal Medicine
DX: N39.0 Urinary tract infection, site not specified (principal); U07.1 COVID-19; H70.001 Acute mastoiditis without complications, right ear; I13.0 Hypertensive heart and chronic kidney disease with heart failure and stage 1 through stage 4 chronic kidney disease, or unspecified chronic kidney disease; I50.1 Left ventricular failure, unspecified; J98.11 Atelectasis; I25.10 Atherosclerotic heart disease of native coronary artery without angina pectoris; I48.0 Paroxysmal atrial fibrillation; E78.5 Hyperlipidemia, unspecified; F03.90 Unspecified dementia, unspecified severity, without behavioral disturbance, psychotic disturbance, mood disturbance, and anxiety; N18.9 Chronic kidney disease, unspecified; N40.0 Benign prostatic hyperplasia without lower urinary tract symptoms; E86.0 Dehydration; D72.829 Elevated white blood cell count, unspecified
CPT/HCPCS: 0241U-QW; 36415; 70450-TC; 71045-TC-FY; 80048; 80053; 81003; 81015; 82550; 82962; 83605; 83735; 84100; 84484; 85025; 85027; 87040; 87086; 87186; 93005; 97161-GP; 99285-25; J1644

== ENCOUNTER 2022-04-25 14:21 | Inpatient (IN) | payer OTHER, BC ==
[2022-04-25 14:34] VITALS: BMI 22.9
[2022-04-25] MEDS ORDERED: SODIUM CHLORIDE 0.9% 1000 ML INFUS.BAG IV ONE (16:20)
[2022-04-25 17:39] LABS: BASO % 0.6 % (0-2.0); EOS % 0.1 % (0-4.5); HEMATOCRIT 38.1 % (35.4-49); HEMOGLOBIN 12.6 GM/dL (11.7-16.9); LYMPH % 14.1 % (8-40); MCH 30.2 pg (25.7-33.7); MCHC 33.1 g/dl (32.0-35.9); MEAN CELL VOLUME 91.2 fl (80-96); MONO % 7.5 % (3.8-10.2); NEUT % 77.7 % (42.8-82.8); PLATELET COUNT 123 10^3/uL (134-434); RBC 4.18 M/mm3 (4.00-5.60); RDW 14.3 % (11.9-15.9); WHITE BLOOD COUNT 9.6 K/mm3 (4.0-10.0)
[2022-04-25 17:50] LABS: EPI CELLS 8 /uL (0-25.1); HYALINE CASTS 1 /uL (0-3.1); URINE APPEARANCE CLEAR; URINE BACTERIA 9 /uL (0-1359); URINE BILIRUBIN NEGATIVE (NEGATIVE); URINE COLOR YELLOW; URINE GLUCOSE (UA) NEGATIVE (NEGATIVE); URINE KETONE NEGATIVE (NEGATIVE); URINE LEUK ESTERASE NEGATIVE (NEGATIVE); URINE NITRITE NEGATIVE (NEGATIVE); URINE PROTEIN 1+ (NEGATIVE); URINE RBC 36 /uL (0-23.9); URINE WBC 7 /uL (0-25.8)
[2022-04-25 17:57] LABS: ALBUMIN 3.4 g/dl (3.4-5.0); BLOOD UREA NITROGEN 36.4 mg/dL (7-18); CALCIUM 8.6 mg/dL (8.5-10.1)
[2022-04-25 18:00] LABS: CREATININE 1.1 mg/dL (0.55-1.3)
[2022-04-25 18:02] LABS: BILIRUBIN,TOTAL 0.9 mg/dL (0.2-1)
[2022-04-25] MEDS ORDERED: AZITHROMYCIN IVPB 500 MG in DEXTROSE 5%-WATER - 250 ML IVPB ONE (19:01)
[2022-04-25] MEDS ORDERED: CEFTRIAXONE 1,000 MG in DEXTROSE 5%-WATER - 50 ML IVPB ONE (19:01)
[2022-04-25] MEDS ORDERED: CEFTRIAXONE 1 GM/50 ML BAG ONE (19:06)
[2022-04-25] MEDS ORDERED: AZITHROMYCIN IVPB 500 MG/250 ML BAG IVPB ONE (19:06)
[2022-04-26] MEDS: HEPARIN NA (PORCINE) 5,000 UNITS/ML 1ML VIAL SQ SCH ×3 (06:09→21:18)
[2022-04-26 07:53] LABS: HEMATOCRIT 35.9 % (35.4-49); MCH 30.6 pg (25.7-33.7); MCHC 33.3 g/dl (32.0-35.9); MEAN CELL VOLUME 91.8 fl (80-96); MEAN PLT VOLUME 8.9 fl (7.5-11.1); PLATELET COUNT 101 10^3/uL (134-434); RBC 3.91 M/mm3 (4.00-5.60); RDW 14.7 % (11.9-15.9); WHITE BLOOD COUNT 7.2 K/mm3 (4.0-10.0)
[2022-04-26 08:35] LABS: ALBUMIN 2.8 g/dl (3.4-5.0); BLOOD UREA NITROGEN 25.6 mg/dL (7-18); CALCIUM 8.1 mg/dL (8.5-10.1)
[2022-04-26 08:38] LABS: CREATININE 0.9 mg/dL (0.55-1.3)
[2022-04-26 08:40] LABS: BILIRUBIN,TOTAL 0.7 mg/dL (0.2-1); TOT PROT 6.2 g/dl (6.4-8.2)
[2022-04-26] MEDS ORDERED: ENOXAPARIN NA (PORCINE) 40 MG/0.4 ML DISP.SYRIN SQ SCH (10:00)
[2022-04-26] MEDS ORDERED: MELATONIN 5 MG TABLETS PO ONE (21:01)
[2022-04-26 22:22] LABS: BASO % 0.2 % (0-2.0); HEMOGLOBIN 12.9 GM/dL (11.7-16.9); LYMPH % 22.6 % (8-40); MCH 30.9 pg (25.7-33.7); MEAN CELL VOLUME 90.9 fl (80-96); MEAN PLT VOLUME 8.6 fl (7.5-11.1); MONO % 7.9 % (3.8-10.2); NEUT % 67.3 % (42.8-82.8); PLATELET COUNT 116 10^3/uL (134-434); RBC 4.18 M/mm3 (4.00-5.60); RDW 14.7 % (11.9-15.9); WHITE BLOOD COUNT 5.9 K/mm3 (4.0-10.0)
[2022-04-26 22:37] LABS: INR 1.09 (0.83-1.09); PROTHROMBIN TIME (PATIENT) 12.5 SEC (9.7-13.0)
[2022-04-26 22:40] LABS: ACTIVATED PTT 26.8 SECONDS (25.2-36.5)
[2022-04-27] MEDS: HEPARIN NA (PORCINE) 5,000 UNITS/ML 1ML VIAL SQ SCH ×2 (06:04→13:26)
[2022-04-27 10:54] VITALS: RESP 20
[2022-04-27] MEDS ORDERED: CEPHALEXIN MONOHYDRATE 500 MG CAPSULE (UD) PO ONE (14:30)
[2022-04-27] MEDS ORDERED: LOSARTAN POTASSIUM 50 MG TABLET PO ONE (14:30)
[2022-04-27 14:42] VITALS: BP 145/58; PULSE 94; TEMP 98
== END 2022-04-27 18:11 | disposition home or self-care (01) | DRG 312 ==
LOC: JER 14:21 → JERBED 18:19 → J4S 20:34
PROVIDERS: ADMIT Hospitalist; ATTEND Internal Medicine
DX: I95.1 Orthostatic hypotension (principal); R50.9 Fever, unspecified; R05.9 Cough, unspecified; F03.90 Unspecified dementia, unspecified severity, without behavioral disturbance, psychotic disturbance, mood disturbance, and anxiety; E78.5 Hyperlipidemia, unspecified; I48.0 Paroxysmal atrial fibrillation; I25.10 Atherosclerotic heart disease of native coronary artery without angina pectoris; R29.810 Facial weakness; D69.6 Thrombocytopenia, unspecified; I12.9 Hypertensive chronic kidney disease with stage 1 through stage 4 chronic kidney disease, or unspecified chronic kidney disease; N18.9 Chronic kidney disease, unspecified; R29.6 Repeated falls; I25.2 Old myocardial infarction; N40.0 Benign prostatic hyperplasia without lower urinary tract symptoms; Z86.73 Personal history of transient ischemic attack (TIA), and cerebral infarction without residual deficits
CPT/HCPCS: 0241U-QW; 36415; 70450-TC; 71046-TC-FY; 80053; 81003; 82962; 83735; 84100; 84484; 85025; 85027; 85610; 85730; 87040; 87086; 93005; 93010; 99285-25; J1644

== ENCOUNTER 2022-08-14 06:28 | Observation (INO) | payer OTHER, BC ==
[2022-08-14 06:43] VITALS: BMI 25.8
[2022-08-14 08:01] LABS: ALBUMIN 3.6 g/dl (3.4-5.0); BILIRUBIN,TOTAL 0.8 mg/dl (0.2-1); CALCIUM 8.9 mg/dl (8.5-10); CREATININE 1.2 mg/dl (0.55-1.3); TOT PROT 6.8 g/dl (6.4-8.2)
[2022-08-14 08:03] LABS: HEMATOCRIT 37.5 % (35.4-49); HEMOGLOBIN 12.6 G/dL (11.7-16.9); MCH 30.6 pg (25.7-33.7); MCHC 33.5 g/dl (32.0-35.9); MEAN CELL VOLUME 91.3 fl (80-96); MEAN PLT VOLUME 8.8 fl (7.5-11.1); PLATELET COUNT 128.7 10^3/uL (134-434); RBC 4.11 10^6/uL (4.00-5.60); WHITE BLOOD COUNT 4.7 10^3/uL (4.0-10.8)
[2022-08-14 09:08] LABS: PLATELET ESTIMATE DECREASED
[2022-08-14] MEDS ORDERED: ACETAMINOPHEN 500 MG TABLET (FP) PO PRN (11:02)
[2022-08-14 11:43] LABS: EPITHELIAL CELLS RARE /hpf; URINE MUCUS 2+
[2022-08-14] MEDS ORDERED: ATORVASTATIN CA 10 MG TABLET (FP) PO SCH (22:00)
[2022-08-14 22:27] VITALS: RESP 18
[2022-08-15 08:26] LABS: CALCIUM 8.5 mg/dl (8.5-10); CREATININE 1.2 mg/dl (0.55-1.3); MAGNESIUM 2.1 mg/dL (1.8-2.4); PHOSPHOROUS 3.4 mg/dl (2.5-4.9)
[2022-08-15 08:29] LABS: HEMOGLOBIN 12.6 G/dL (11.7-16.9); MCH 30.8 pg (25.7-33.7); MCHC 33.2 g/dl (32.0-35.9); MEAN CELL VOLUME 92.7 fl (80-96); MEAN PLT VOLUME 9.2 fl (7.5-11.1); RDW 14.5 % (11.9-15.9); WHITE BLOOD COUNT 4.3 10^3/uL (4.0-10.8)
[2022-08-15] MEDS ORDERED: DONEPEZIL HCL 5 MG TABLET (FP) PO SCH (10:00)
[2022-08-15] MEDS ORDERED: amLODIPine BESYLATE 2.5 MG TABLET (FP) PO SCH (10:00)
[2022-08-15] MEDS ORDERED: LOSARTAN POTASSIUM 50 MG TABLET PO SCH (10:00)
[2022-08-15] MEDS ORDERED: ENOXAPARIN NA (PORCINE) 40 MG/0.4 ML DISP.SYRIN SQ SCH (10:00)
[2022-08-15 10:33] VITALS: BP 145/67; PULSE 61; TEMP 99.1
== END 2022-08-15 12:00 | disposition home or self-care (01) ==
LOC: FER 06:28 → FM/S 09:13
PROVIDERS: ADMIT Internal Medicine; ATTEND Internal Medicine
PROC: 3E023GC Introduction of Other Therapeutic Substance into Muscle, Percutaneous Approach (ICD-10-PCS; principal; 2022-08-14)
DX: I25.10 Atherosclerotic heart disease of native coronary artery without angina pectoris (principal); I48.0 Paroxysmal atrial fibrillation; R29.6 Repeated falls; Z87.440 Personal history of urinary (tract) infections; F03.90 Unspecified dementia, unspecified severity, without behavioral disturbance, psychotic disturbance, mood disturbance, and anxiety; I10 Essential (primary) hypertension; I21.4 Non-ST elevation (NSTEMI) myocardial infarction; N18.9 Chronic kidney disease, unspecified; W18.39XA Other fall on same level, initial encounter; Y93.89 Activity, other specified; Y92.89 Other specified places as the place of occurrence of the external cause; N40.0 Benign prostatic hyperplasia without lower urinary tract symptoms; I95.1 Orthostatic hypotension; Z86.73 Personal history of transient ischemic attack (TIA), and cerebral infarction without residual deficits; R77.8 Other specified abnormalities of plasma proteins
CPT/HCPCS: 0241U-QW; 36415; 70450-TC; 71045-TC-FY; 72125-TC; 72170-TC-FY; 80048; 80053; 81003; 81015; 82550; 82553; 82962; 83735; 84100; 84484; 85027; 87086; 93005; 96372; 97116-GP; 97162-GP; 99285-25; G0378

== ENCOUNTER 2022-11-15 12:07 | Inpatient (IN) | payer OTHER, BC ==
[2022-11-15 13:07] LABS: HEMATOCRIT 35.8 % (35.4-49); HEMOGLOBIN 12.4 G/dL (11.7-16.9); MCH 31.9 pg (25.7-33.7); MCHC 34.6 g/dl (32.0-35.9); MEAN CELL VOLUME 92.3 fl (80-96); MEAN PLT VOLUME 8.6 fl (7.5-11.1); PLATELET COUNT 123.2 10^3/uL (134-434); RBC 3.88 10^6/uL (4.00-5.60); WHITE BLOOD COUNT 4.5 10^3/uL (4.0-10.8)
[2022-11-15 13:10] LABS: ALBUMIN 3.5 g/dl (3.4-5.0); BILIRUBIN,TOTAL 0.6 mg/dl (0.2-1); CALCIUM 8.8 mg/dl (8.5-10); CREATININE 1.2 mg/dl (0.55-1.3); TOT PROT 6.7 g/dl (6.4-8.2)
[2022-11-15 13:16] LABS: PLATELET ESTIMATE ADEQUATE
[2022-11-15 13:17] LABS: EPITHELIAL CELLS FEW /hpf
[2022-11-15] MEDS ORDERED: CEFTRIAXONE 1,000 MG in DEXTROSE 5%-WATER - 50 ML IVPB ONE (13:42)
[2022-11-15] MEDS ORDERED: cefTRIAXone SODIUM 1 GM VIAL ONE (13:44)
[2022-11-15] MEDS: ATORVASTATIN CA 10 MG TABLET (FP) PO SCH (22:12)
[2022-11-15] MEDS: METOPROLOL TARTRATE 50 MG TABLET (FP) PO SCH ×2 (22:13→22:15)
[2022-11-15] MEDS: HEPARIN NA (PORCINE) 5,000 UNITS/ML 1ML VIAL SQ SCH (22:13)
[2022-11-16] MEDS: METOPROLOL TARTRATE 50 MG TABLET (FP) PO SCH ×2 (07:11→21:07)
[2022-11-16 09:23] LABS: ALBUMIN 3.2 g/dl (3.4-5.0); BILIRUBIN,TOTAL 0.7 mg/dl (0.2-1); CALCIUM 8.8 mg/dl (8.5-10); CREATININE 1.1 mg/dl (0.55-1.3); TOT PROT 6.5 g/dl (6.4-8.2)
[2022-11-16] MEDS: CEFTRIAXONE 1 GM in DEXTROSE 5%-WATER - 50 ML IVPB SCH (09:47)
[2022-11-16] MEDS: DONEPEZIL HCL 5 MG TABLET (FP) PO SCH (09:47)
[2022-11-16] MEDS: LOSARTAN POTASSIUM 50 MG TABLET PO SCH (09:47)
[2022-11-16] MEDS: ASPIRIN COATED 81 MG TABLET.EC PO SCH (09:47)
[2022-11-16] MEDS: HEPARIN NA (PORCINE) 5,000 UNITS/ML 1ML VIAL SQ SCH (09:47)
[2022-11-16 11:35] LABS: BASO % 0.1 % (0-2.0); EOS % 3.1 % (0-4.5); HEMATOCRIT 37.3 % (35.4-49); HEMOGLOBIN 12.2 GM/dL (11.7-16.9); MCH 29.5 pg (25.7-33.7); MCHC 32.6 g/dl (32.0-35.9); MEAN CELL VOLUME 90.4 fl (80-96); MEAN PLT VOLUME 8.9 fl (7.5-11.1); MONO % 12.2 % (3.8-10.2); NEUT % 52.6 % (42.8-82.8); PLATELET COUNT 136 10^3/uL (134-434); RBC 4.12 M/mm3 (4.00-5.60); RDW 14.6 % (11.9-15.9); WHITE BLOOD COUNT 4.6 K/mm3 (4.0-10.0)
[2022-11-16] MEDS: ATORVASTATIN CA 10 MG TABLET (FP) PO SCH (21:06)
[2022-11-17] MEDS: METOPROLOL TARTRATE 50 MG TABLET (FP) PO SCH ×2 (06:06→20:59)
[2022-11-17 09:47] LABS: CALCIUM 8.7 mg/dl (8.5-10); CREATININE 1.1 mg/dl (0.55-1.3)
[2022-11-17 10:01] LABS: HEMATOCRIT 38.3 % (35.4-49); HEMOGLOBIN 13.2 G/dL (11.7-16.9); MCH 31.7 pg (25.7-33.7); MCHC 34.5 g/dl (32.0-35.9); MEAN CELL VOLUME 91.8 fl (80-96); MEAN PLT VOLUME 9.3 fl (7.5-11.1); PLATELET COUNT 129.5 10^3/uL (134-434); RBC 4.17 10^6/uL (4.00-5.60); RDW 14.4 % (11.9-15.9); WHITE BLOOD COUNT 4.6 10^3/uL (4.0-10.8)
[2022-11-17] MEDS: LACTOBACILLUS ACIDOPHILUS 1 TABLET PO SCH (10:59)
[2022-11-17] MEDS: ASPIRIN COATED 81 MG TABLET.EC PO SCH (11:00)
[2022-11-17] MEDS: DONEPEZIL HCL 5 MG TABLET (FP) PO SCH (11:00)
[2022-11-17] MEDS: LOSARTAN POTASSIUM 50 MG TABLET PO SCH (11:00)
[2022-11-17] MEDS: ENOXAPARIN NA (PORCINE) 40 MG/0.4 ML DISP.SYRIN SQ SCH (11:00)
[2022-11-17] MEDS: CEFTRIAXONE 1 GM in DEXTROSE 5%-WATER - 50 ML IVPB SCH (11:00)
[2022-11-17] MEDS: ACETAMINOPHEN 325 MG TABLET (FP) PO PRN (20:59)
[2022-11-17] MEDS: ATORVASTATIN CA 10 MG TABLET (FP) PO SCH (20:59)
[2022-11-18] MEDS: METOPROLOL TARTRATE 50 MG TABLET (FP) PO SCH ×2 (06:23→21:10)
[2022-11-18] MEDS ORDERED: LOSARTAN POTASSIUM 50 MG TABLET PO SCH (07:15)
[2022-11-18] MEDS: ASPIRIN COATED 81 MG TABLET.EC PO SCH (10:04)
[2022-11-18] MEDS: DONEPEZIL HCL 5 MG TABLET (FP) PO SCH (10:05)
[2022-11-18] MEDS: ENOXAPARIN NA (PORCINE) 40 MG/0.4 ML DISP.SYRIN SQ SCH (10:05)
[2022-11-18] MEDS: LACTOBACILLUS ACIDOPHILUS 1 TABLET PO SCH (10:05)
[2022-11-18] MEDS: CEFTRIAXONE 1 GM in DEXTROSE 5%-WATER - 50 ML IVPB SCH (10:06)
[2022-11-18] MEDS: DOXYCYCLINE HYCLATE 100 MG CAPSULE PO SCH ×2 (14:46→18:10)
[2022-11-18 17:21] VITALS: BMI 25.9
[2022-11-18] MEDS: ACETAMINOPHEN 325 MG TABLET (FP) PO PRN (21:10)
[2022-11-18] MEDS: ATORVASTATIN CA 10 MG TABLET (FP) PO SCH (21:10)
[2022-11-19] MEDS: METOPROLOL TARTRATE 50 MG TABLET (FP) PO SCH (06:25)
[2022-11-19 08:45] LABS: CALCIUM 8.9 mg/dl (8.5-10); CREATININE 1.2 mg/dl (0.55-1.3)
[2022-11-19] MEDS: ASPIRIN COATED 81 MG TABLET.EC PO SCH (10:20)
[2022-11-19] MEDS: LACTOBACILLUS ACIDOPHILUS 1 TABLET PO SCH (10:21)
[2022-11-19] MEDS: ENOXAPARIN NA (PORCINE) 40 MG/0.4 ML DISP.SYRIN SQ SCH (10:21)
[2022-11-19] MEDS: DONEPEZIL HCL 5 MG TABLET (FP) PO SCH (10:21)
[2022-11-19] MEDS: DOXYCYCLINE HYCLATE 100 MG CAPSULE PO SCH (10:21)
[2022-11-19 10:29] VITALS: RESP 18; TEMP 98
[2022-11-19 10:32] LABS: BASO % 0.4 % (0-2.0); EOS % 3.6 % (0-4.5); HEMATOCRIT 38.2 % (35.4-49); HEMOGLOBIN 12.7 GM/dL (11.7-16.9); LYMPH % 32.5 % (8-40); MCH 29.5 pg (25.7-33.7); MCHC 33.2 g/dl (32.0-35.9); MEAN PLT VOLUME 8.7 fl (7.5-11.1); MONO % 12.3 % (3.8-10.2); NEUT % 51.2 % (42.8-82.8); PLATELET COUNT 159 10^3/uL (134-434); RBC 4.29 M/mm3 (4.00-5.60); RDW 14.3 % (11.9-15.9)
[2022-11-19 14:11] VITALS: BP 105/51; PULSE 55
== END 2022-11-19 15:30 | disposition home or self-care (01) | DRG 689 ==
LOC: FER 12:07 → INTOOBSV 14:56 → FM/S 14:56 → UNDOADMOB 14:56 → FM/S 16:16 → OBSVTOIN 11-16 12:40
PROVIDERS: ADMIT Internal Medicine
DX: N39.0 Urinary tract infection, site not specified (principal); G93.41 Metabolic encephalopathy; I25.10 Atherosclerotic heart disease of native coronary artery without angina pectoris; E78.5 Hyperlipidemia, unspecified; I48.0 Paroxysmal atrial fibrillation; F03.90 Unspecified dementia, unspecified severity, without behavioral disturbance, psychotic disturbance, mood disturbance, and anxiety; I25.2 Old myocardial infarction; N40.0 Benign prostatic hyperplasia without lower urinary tract symptoms; R53.1 Weakness; I12.9 Hypertensive chronic kidney disease with stage 1 through stage 4 chronic kidney disease, or unspecified chronic kidney disease; N18.9 Chronic kidney disease, unspecified; J44.9 Chronic obstructive pulmonary disease, unspecified; R29.6 Repeated falls; I95.1 Orthostatic hypotension; B95.7 Other staphylococcus as the cause of diseases classified elsewhere; Z95.5 Presence of coronary angioplasty implant and graft; Z86.73 Personal history of transient ischemic attack (TIA), and cerebral infarction without residual deficits
CPT/HCPCS: 0241U-QW; 36415; 70450-TC; 71045-TC-FY; 76775-TC; 80048; 80053; 81003; 81015; 83605; 84443; 84484; 85025; 85027; 87040; 87086; 87186; 93005; 97116-GP; 97162-GP; 99285-25; G0378; J1644

== ENCOUNTER 2022-11-21 12:37 | Inpatient (IN) | payer OTHER, BC ==
[2022-11-21 14:21] LABS: HEMATOCRIT 39.8 % (35.4-49); HEMOGLOBIN 13.1 G/dL (11.7-16.9); MCHC 32.8 g/dl (32.0-35.9); MEAN CELL VOLUME 91.4 fl (80-96); MEAN PLT VOLUME 8.7 fl (7.5-11.1); PLATELET COUNT 147.2 10^3/uL (134-434); RBC 4.35 10^6/uL (4.00-5.60); RDW 14.8 % (11.9-15.9); WHITE BLOOD COUNT 7.1 10^3/uL (4.0-10.8)
[2022-11-21 14:28] LABS: ALBUMIN 3.4 g/dl (3.4-5.0); BILIRUBIN,TOTAL 0.8 mg/dl (0.2-1); CALCIUM 8.8 mg/dl (8.5-10); CREATININE 1.4 mg/dl (0.55-1.3); TOT PROT 6.7 g/dl (6.4-8.2)
[2022-11-21 14:47] LABS: PLATELET ESTIMATE ADEQUATE
[2022-11-21] MEDS ORDERED: LACTATED RINGERS SOLUTION 1,000 ML/1,000 ML INFUS.BAG IV SCH (18:15)
[2022-11-21] MEDS: CEFTRIAXONE 1 GM in DEXTROSE 5%-WATER - 50 ML IVPB SCH (19:09)
[2022-11-22] MEDS: CEFTRIAXONE 1 GM in DEXTROSE 5%-WATER - 50 ML IVPB SCH (09:24)
[2022-11-22 09:31] VITALS: RESP 17
[2022-11-22] MEDS ORDERED: ENOXAPARIN NA (PORCINE) 40 MG/0.4 ML DISP.SYRIN SQ SCH (10:00)
[2022-11-22] MEDS ORDERED: SODIUM CHLORIDE 0.9% 250 ML INFUS.BAG IV ONE (10:34)
[2022-11-22 12:18] LABS: HEMATOCRIT 41.5 % (35.4-49); HEMOGLOBIN 13.8 G/dL (11.7-16.9); MCH 30.3 pg (25.7-33.7); MCHC 33.2 g/dl (32.0-35.9); MEAN CELL VOLUME 91.5 fl (80-96); PLATELET COUNT 151.4 10^3/uL (134-434); RBC 4.54 10^6/uL (4.00-5.60); RDW 14.9 % (11.9-15.9); WHITE BLOOD COUNT 5.6 10^3/uL (4.0-10.8)
[2022-11-22 12:32] LABS: ALBUMIN 3.4 g/dl (3.4-5.0); BILIRUBIN,TOTAL 0.4 mg/dl (0.2-1); CALCIUM 8.9 mg/dl (8.5-10); CREATININE 1.1 mg/dl (0.55-1.3); TOT PROT 6.9 g/dl (6.4-8.2)
[2022-11-22 21:49] VITALS: BMI 23.4
[2022-11-22 23:31] VITALS: BP 158/82; PULSE 61; TEMP 98.5
== END 2022-11-22 23:25 | DRG 689 ==
LOC: FER 12:37 → FM/S 15:14
DX: N39.0 Urinary tract infection, site not specified (principal); G93.41 Metabolic encephalopathy; M62.82 Rhabdomyolysis; N17.9 Acute kidney failure, unspecified; F03.90 Unspecified dementia, unspecified severity, without behavioral disturbance, psychotic disturbance, mood disturbance, and anxiety; I25.10 Atherosclerotic heart disease of native coronary artery without angina pectoris; N40.0 Benign prostatic hyperplasia without lower urinary tract symptoms; E78.5 Hyperlipidemia, unspecified; J44.9 Chronic obstructive pulmonary disease, unspecified; E86.0 Dehydration; I48.0 Paroxysmal atrial fibrillation; Z86.73 Personal history of transient ischemic attack (TIA), and cerebral infarction without residual deficits; R29.6 Repeated falls; I12.9 Hypertensive chronic kidney disease with stage 1 through stage 4 chronic kidney disease, or unspecified chronic kidney disease; N18.9 Chronic kidney disease, unspecified; W18.30XA Fall on same level, unspecified, initial encounter; Y92.098 Other place in other non-institutional residence as the place of occurrence of the external cause
CPT/HCPCS: 0241U-QW; 36415; 71045-TC-FY; 73060-TC-RT-FY; 80053; 82550; 82553; 84484; 85027; 93005; 99285-25

== ENCOUNTER 2023-06-02 13:10 | Inpatient (IN) | payer OTHER, BC ==
[2023-06-02 13:31] VITALS: BMI 23.4
[2023-06-02 14:02] LABS: INR 1.05 (0.83-1.09); PROTHROMBIN TIME (PATIENT) 12.2 SEC (9.7-13.0)
[2023-06-02 14:05] LABS: ACTIVATED PTT 25.7 SECONDS (25.2-36.5)
[2023-06-02 14:19] LABS: BILIRUBIN,TOTAL 0.7 mg/dl (0.2-1); CALCIUM 9.2 mg/dl (8.5-10.1); CREATININE 1.3 mg/dl (0.6-1.3); MAGNESIUM 2.2 mg/dL (1.8-2.4); POTASSIUM 4.9 mmol/L (3.5-5.1); SGOT/AST 15.1 U/L (15-37); SGPT/ALT 5.9 U/L (7-52); TOT PROT 6.8 g/dl (6.4-8.2)
[2023-06-02 14:26] LABS: HEMATOCRIT 40.2 % (35.4-49); HEMOGLOBIN 12.8 G/dL (11.7-16.9); MCH 29.3 pg (25.7-33.7); MCHC 31.8 g/dl (32.0-35.9); MEAN CELL VOLUME 91.9 fl (80-96); MEAN PLT VOLUME 8.7 fl (7.5-11.1); PLATELET COUNT 155.6 10^3/uL (134-434); RBC 4.37 10^6/uL (4.00-5.60); WHITE BLOOD COUNT 5.5 10^3/uL (4.0-10.8)
[2023-06-02 15:35] LABS: N-TERMINAL BNP 908.2 pg/ml (5-450)
[2023-06-02 16:29] LABS: PLATELET ESTIMATE ADEQUATE
[2023-06-02] MEDS ORDERED: PANTOPRAZOLE SODIUM 40 MG VIAL ONE (17:46)
[2023-06-03] MEDS ORDERED: MELATONIN 5 MG TABLETS PO ONE (00:52)
[2023-06-03 09:42] LABS: BLOOD UREA NITROGEN 25.4 mg/dl (7-18); CALCIUM 9.4 mg/dl (8.5-10.1); CREATININE 1.3 mg/dl (0.6-1.3); POTASSIUM 4.1 mmol/L (3.5-5.1)
[2023-06-03 10:49] LABS: BASO % 0.4 % (0-2.0); EOS % 1.5 % (0-4.5); HEMATOCRIT 40.7 % (35.4-49); HEMOGLOBIN 13.5 GM/dL (11.7-16.9); LYMPH % 20.9 % (8-40); MCH 29.7 pg (25.7-33.7); MCHC 33.1 g/dl (32.0-35.9); MEAN CELL VOLUME 89.9 fl (80-96); MEAN PLT VOLUME 8.8 fl (7.5-11.1); MONO % 9.6 % (3.8-10.2); NEUT % 67.6 % (42.8-82.8); PLATELET COUNT 167 10^3/uL (134-434); RBC 4.53 M/mm3 (4.00-5.60); RDW 13.7 % (11.9-15.9); WHITE BLOOD COUNT 5.7 K/mm3 (4.0-10.0)
[2023-06-03] MEDS: METOPROLOL TARTRATE 25 MG TABLET (FP) PO SCH (10:49)
[2023-06-03] MEDS: ATORVASTATIN CA 10 MG TABLET (FP) PO SCH (22:01)
[2023-06-03] MEDS: METOPROLOL TARTRATE 50 MG TABLET (FP) PO SCH (22:02)
[2023-06-03] MEDS: DONEPEZIL HCL 5 MG TABLET (FP) PO SCH (22:02)
[2023-06-04 08:30] LABS: ALBUMIN 3.7 g/dl (3.4-5.0); BILIRUBIN,TOTAL 0.9 mg/dl (0.2-1); BLOOD UREA NITROGEN 29.1 mg/dl (7-18); CALCIUM 8.8 mg/dl (8.5-10.1); CREATININE 1.4 mg/dl (0.6-1.3); POTASSIUM 3.9 mmol/L (3.5-5.1); SGOT/AST 19.1 U/L (15-37); SGPT/ALT 9.5 U/L (7-52); TOT PROT 6.1 g/dl (6.4-8.2)
[2023-06-04] MEDS: METOPROLOL TARTRATE 25 MG TABLET (FP) PO SCH (09:57)
[2023-06-04 10:13] LABS: BASO % 0.1 % (0-2.0); HEMATOCRIT 37.1 % (35.4-49); HEMOGLOBIN 12.4 GM/dL (11.7-16.9); LYMPH % 27.9 % (8-40); MCH 29.9 pg (25.7-33.7); MCHC 33.4 g/dl (32.0-35.9); MEAN CELL VOLUME 89.6 fl (80-96); MEAN PLT VOLUME 8.4 fl (7.5-11.1); MONO % 13.8 % (3.8-10.2); NEUT % 56.2 % (42.8-82.8); PLATELET COUNT 153 10^3/uL (134-434); RBC 4.14 M/mm3 (4.00-5.60); RDW 13.6 % (11.9-15.9); WHITE BLOOD COUNT 5.2 K/mm3 (4.0-10.0)
[2023-06-04] MEDS: DONEPEZIL HCL 5 MG TABLET (FP) PO SCH (21:12)
[2023-06-04] MEDS: ATORVASTATIN CA 10 MG TABLET (FP) PO SCH (21:12)
[2023-06-04] MEDS: METOPROLOL TARTRATE 50 MG TABLET (FP) PO SCH (21:12)
[2023-06-05] MEDS: METOPROLOL TARTRATE 25 MG TABLET (FP) PO SCH (09:49)
[2023-06-05 13:09] VITALS: BP 118/59; PULSE 54; RESP 18; TEMP 98.4
== END 2023-06-05 21:06 | disposition home or self-care (01) | DRG 56 ==
LOC: FER 13:10 → FM/S 15:51
PROVIDERS: ADMIT Internal Medicine
DX: G30.9 Alzheimer's disease, unspecified (principal); G93.41 Metabolic encephalopathy; I25.10 Atherosclerotic heart disease of native coronary artery without angina pectoris; I12.9 Hypertensive chronic kidney disease with stage 1 through stage 4 chronic kidney disease, or unspecified chronic kidney disease; N18.9 Chronic kidney disease, unspecified; E78.5 Hyperlipidemia, unspecified; I25.2 Old myocardial infarction; I48.0 Paroxysmal atrial fibrillation; N40.0 Benign prostatic hyperplasia without lower urinary tract symptoms; R41.0 Disorientation, unspecified; F02.80 Dementia in other diseases classified elsewhere, unspecified severity, without behavioral disturbance, psychotic disturbance, mood disturbance, and anxiety
CPT/HCPCS: 0241U-QW; 36415; 70450-TC; 70496-TC; 70498-TC; 71045-TC-FY; 72125-TC; 80048; 80053; 80061; 81003; 81015; 83735; 83880; 84439; 84443; 84484; 85025; 85610; 85730; 86850; 86900; 86901; 87086; 93005; 97116-GP; 97162-GP; 99285-25